=== PATIENT | male | born 1960 | race Caucasian/White ===

== ENCOUNTER 2018-01-30 02:35 | Inpatient (IN) ==
[2018-01-30] MEDS ORDERED: Sod Chloride 0.9% Inj 1,000 ML IV.CONT SCH (02:45)
[2018-01-30] MEDS ORDERED: Alteplase Bolus 9 MG/9 ML Syringe IV.PUSH ONE (02:53)
[2018-01-30] MEDS ORDERED: ALTEPLASE DRIP IV.SIG ONE (02:53)
--- NOTE | 2018-01-30 02:59 | CT ---
EXAM DATE: 01/30/2018 2:47 AM EDT AGE/SEX: 57 years / Male INDICATIONS: Stroke Alert. Flaccid right upper extremity, aphasia. CLINICAL DATA: This is the patient's initial encounter. Patient reports that signs and symptoms have been present for 1 day and indicates a pain score of 0/10. MEDICAL/SURGICAL HISTORY: Non-responsive. Non-responsive. RADIATION DOSE: 60.26 CTDI (mGy) COMPARISON: No prior exams available for comparison. TECHNIQUE: CT of the head without contrast. Using automated exposure control and adjustment of the mA and/or kV according to patient size, radiation dose was kept as low as reasonably achievable to ob tain optimal diagnostic quality images. DICOM format image data is available electronically for revi ew and comparison. FINDINGS: No bleed or parenchymal changes are seen of the brain. There is increased density of the left middle cerebral artery, probably acutely thrombosed. No mass demonstrated. No midline shift. Skull is intact. There is mucoperiosteal thickening of the right maxillary air cell. CONCLUSION: Suspected acute thrombosis of the left middle cerebral artery. Stat CTA is recommended. E mergent transfer to the main hospital should be arranged. No perceptible parenchymal changes at this time. Report called to the emergency room physician Dr. Pinon at 2:52 AM. Report was called by [ ] Electronically signed by: Vasu Navarro MD 01/30/2018 2:58 AM EDT
[2018-01-30 03:10] LABS: Baso % (Auto) 0.4 % (0.0-2.0); Eos # (Auto) 0.2 th/mm3 (0.0-0.4); Eos % (Auto) 3.4 % (0.0-4.0); Hematocrit 40.7 % (39.0-51.0); Lymph # (Auto) 2.4 th/mm3 (1.0-4.8); Mean Corpuscular HGB Conc 34.4 % (32.0-36.0); Mean Corpuscular Hemoglobin 34.3 pg (27.0-34.0); Mean Corpuscular Volume 99.5 fL (80.0-100.0); Mean Platelet Volume 7.7 fL (7.0-11.0); Mono # (Auto) 0.7 th/mm3 (0.0-0.9); Mono % (Auto) 10.9 % (0.0-8.0); Neut # (Auto) 3.4 th/mm3 (1.8-7.7); Neut % (Auto) 49.3 % (16.0-70.0); Platelet Count 278 th/mm3 (150-450); Red Blood Count 4.09 mil/mm3 (4.50-5.90); Red Cell Distribution Width 12.5 % (11.6-17.2); White Blood Count 6.8 th/mm3 (4.0-11.0)
[2018-01-30 03:16] LABS: Chloride 108 meq/L (98-107); Potassium 4.3 meq/L (3.5-5.1); Sodium 140 meq/L (136-145)
[2018-01-30 03:19] LABS: Calcium 8.7 mg/dL (8.5-10.1)
--- NOTE | 2018-01-30 03:19 | ED ---
HPI General Chief Complaint: Stroke Alert Stated Complaint: EVAC/Stroke Allert Time Seen by Provider: 01/30/18 02:35 Source: family and EMS Mode of arrival: EMS Limitations: other (Aphasic) History of Present Illness Onset (ago): minute(s) (20) Last Observed Normal: 02:15 Timing confirmed by: spouse Location: speech, right face, right arm and right leg History of same: No Severity: severe Quality: weak Relieving factors: none Exacerbating factors: none Context: sudden onset On Anticoagulants: No Treatments Prior to Arrival: none Related Data Home Medications Medication Instructions Recorded Confirmed Unable to Obtain Home Meds 01/30/18 01/30/18 Allergies Allergy/AdvReac Type Severity Reaction Status Date / Time No Known Allergies Allergy Unverified 01/30/18 02:36 Review of Systems ROS Unobtainable ROS Unobtainable: unobtainable due to mental status PMFSH History History Provided By: Family Member Medical History Medical History Hypertension (Acute) Surgical History Surgical History History of appendectomy (Acute) Social History Social History Substance History: Unable to Obtain Smoking Status: Current every day smoker Tobacco Type: Cigarettes How Often Do You Have a Drink Containing Alcohol: 4 or more times a week Exam Const General: healthy appearing and acute distress HENMT Head: normal to inspection, normocephalic and atraumatic Eyes Alignment and Position: alignment normal Conjunctivae: conjunctivae normal Sclera: sclerae normal EOM: EOM intact bilaterally Neck Neck: normal visual inspection, no lymphadenopathy and no meningeal signs Chest Chest: normal inspection of the chest Resp Effort & Inspection: normal respiratory effort and able to speak in complete sentences Auscultation: clear to auscultation bilaterally Cardio Rate: regular rate Rhythm: regular rhythm Back/Spine/Pelvis Cervical Spine: cervical ROM normal Thoracic/Lumbar Spine: thoraco-lumbar ROM normal Skin General: no rashes or lesions noted, turgor normal and dry skin Neuro General: awake, confused and unable to assess gait Cranial Nerves: PERRL, EOM intact bilaterally, able to rotate head bilaterally and other (Weakness of the right face) Cognition: abnormal cognition Speech: expressive aphasia Motor: muscle tone abnormal (Right upper and right lower extremities) Extrem General: normal to inspection and full ROM Psych Appearance: grossly normal Mental Status: mental status grossly normal Speech and Movement: speech and movement normal Mood: congruent mood Affect: normal affect Attitude: cooperative Thought Process: normal Thought Content: normal Judgment: judgment good Course Hospital Course: There has been no change in the patient's neurological status in the emergency department Consultations Consultation #1: Dr. Acuna, neurologist Time: 02:48 Consultation #2: Dr. Navarro, radiology Time: 02:50 Consultation #3: Dr. Patel, catcher plug Time: 03:05 Initial Documented Vital Signs Pulse Oximetry 100 01/30/18 02:36 Last Documented Vital Signs Pulse Oximetry 100 01/30/18 02:36 Critical Care Time Critical Care Time: Yes Total Critical Care Time: 60 Attestation: Time to perform other separately billable procedures was not included in the critical care time. My time did not include minutes spent treating any other patients simultaneously or on activities that did not directly contribute to the patient's treatment. The services I provided to this patient were to treat and/or prevent clinically significant deterioration due to stroke alert I provided critical care services requiring my management, as noted below: Chart data review, documentation time, medication orders and management, vital sign assessments/reviewing monitor data, ordering and reviewing lab tests, ordering and interpreting/reviewing x-rays and diagnostic studies, care of the patient and discussion of the patient with the admitting physicians NIH Stroke Scale NIHSS Time Completed NIHSS Time Completed: 02:35 NIH Stroke Scale Level of Consciousness: 1-Drowsy Orientation Questions: 2-Neither task correct Gaze Eye Movement: 0-Horizontal movement WNL Facial Movement: 2-Partial facial palsy Motor Functions Arm LEFT: 0-No drift Motor Functions Arm RIGHT: 3-No effort against gravity Motor Functions Leg LEFT: 0-No drift Motor Functions Leg RIGHT: 3-No effort against gravity Best Language: 3-Mute or global aphasia Articulation: 2-Severe dysarthria Total: 16 Quality Measure Queries Stroke Last date observed well: 01/30/18 Last time observed well: 02:00 Symptom Onset Unknown: No Medical Decision Making MDM Narrative Medical decision making narrative: This patient presented as a stroke alert. His reports that they went to bed shortly after midnight. Approximately 10 -15 minutes before calling EMS, she states that he seemed to be normal. She states that he had taken all the covers which resulted in a brief conversation between the 2 of them. He seemed okay at that time. Then, approximately 10 minutes later, she noticed that he seemed very restless. She noticed that he had altered mental status and had been incontinent of urine. He was trying to get off the bed. She subsequently called 911. EVAC reports right-sided paralysis, aphasia and urinary incontinence. A stroke alert was called based upon these findings. On arrival here, the patient is a phasic. He is a little bit agitated. He has some right-sided facial weakness as well as weakness of the right upper and lower extremities. He was taken emergently for CT of the head which was negative for bleed. TPA was then ordered. The case was discussed with Dr. Acuna. The case was also discussed with the radiologist to recommends interventional radiology because of an acute left MCA embolus. CTA of the head and neck have subsequently been ordered. The patient will be transferred to [facility] for interventional radiology followed by admission to the [facility]. Medical Screen Exam Complete: Yes Emergency Medical Condition: Yes Differential Diagnosis Differential Diagnosis: Differential diagnosis includes but is not limited to TIA, CVA, brain tumor, migraine, anxiety Lab Data Lab results reviewed: Yes I reviewed the patient's lab results. Result diagrams: 01/30/18 03:00 01/30/18 03:00 Lab Results 01/30/18 01/30/18 01/30/18 Range/Units 02:57 03:00 03:00 CBC w Diff Auto diff final WBC 6.8 (4.0-11.0) th/mm3 RBC 4.09 L (4.50-5.90) mil/mm3 Hgb 14.0 (13.0-17.0) gm/dL Hct 40.7 (39.0-51.0) % MCV 99.5 (80.0-100.0) fL MCH 34.3 H (27.0-34.0) pg MCHC 34.4 (32.0-36.0) % RDW 12.5 (11.6-17.2) % Plt Count 278 (150-450) th/mm3 MPV 7.7 (7.0-11.0) fL Neut % (Auto) 49.3 (16.0-70.0) % Lymph % (Auto) 36.0 (9.0-44.0) % [place] % (Auto) 10.9 H (0.0-8.0) % Eos % (Auto) 3.4 (0.0-4.0) % Baso % (Auto) 0.4 (0.0-2.0) % Neut # (Auto) 3.4 (1.8-7.7) th/mm3 Lymph # (Auto) 2.4 (1.0-4.8) th/mm3 [place] # (Auto) 0.7 (0.0-0.9) th/mm3 Eos # (Auto) 0.2 (0.0-0.4) th/mm3 Baso # (Auto) 0.0 (0.0-0.2) th/mm3 WBC Differential . Differential Comment . PT 9.8 (9.8-11.6) sec INR 1.0 Ratio APTT 23.3 L (24.3-30.1) sec Fibrinogen 261 (227-377) mg/dL Sodium (136-145) meq/L Potassium (3.5-5.1) meq/L Chloride (98-107) meq/L Carbon Dioxide (21.0-32.0) meq/L Anion Gap (5-15) meq/L BUN (7-18) mg/dL Creatinine (0.60-1.30) mg/dL Estimated GFR (>89) mL/min POC Glucose 93 (68-110) mg/dl Random Glucose (74-106) mg/dL Calcium (8.5-10.1) mg/dL Total Creatine Kinase (39-308) U/L Troponin I (0.02-0.05) ng/mL Urine Color (Yellw/Straw) Urine Clarity (Clear) Urine pH (5.0-8.5) Ur Specific [place] (1.002-1.035) Urine Protein (Neg-Trace) mg/dL Urine Glucose (UA) (Negative) mg/dL Urine Ketones (Negative) mg/dL Urine Occult Blood (Negative) Urine Nitrate (Negative) Urine Bilirubin (Negative) Urine Urobilinogen (Less than 2) mg/dL Ur Leukocyte Esterase (Negative) Urine RBC (0-3) /hpf Urine WBC (0-5) /hpf Ur Squamous Epith Cells (0-5) /hpf Micro UA Comment Ur Microscopic Review Urine Culture Comments Urine Opiates Screen (Neg) Ur Barbiturates Screen (Neg) Ur Amphetamines Screen (Neg) U Benzodiazepines Scrn (Neg) Urine Cocaine Screen (Neg) U Cannabinoids Screen (Neg) Serum Alcohol (0-5) mg/dL Blood Type Blood Type Recheck Antibody Screen 01/30/18 01/30/18 01/30/18 Range/Units 03:00 03:00 03:00 CBC w Diff WBC (4.0-11.0) th/mm3 RBC (4.50-5.90) mil/mm3 Hgb (13.0-17.0) gm/dL Hct (39.0-51.0) % MCV (80.0-100.0) fL MCH (27.0-34.0) pg MCHC (32.0-36.0) % RDW (11.6-17.2) % Plt Count (150-450) th/mm3 MPV (7.0-11.0) fL Neut % (Auto) (16.0-70.0) % Lymph % (Auto) (9.0-44.0) % [place] % (Auto) (0.0-8.0) % Eos % (Auto) (0.0-4.0) % Baso % (Auto) (0.0-2.0) % Neut # (Auto) (1.8-7.7) th/mm3 Lymph # (Auto) (1.0-4.8) th/mm3 [place] # (Auto) (0.0-0.9) th/mm3 Eos # (Auto) (0.0-0.4) th/mm3 Baso # (Auto) (0.0-0.2) th/mm3 WBC Differential Differential Comment PT (9.8-11.6) sec INR Ratio APTT (24.3-30.1) sec Fibrinogen (227-377) mg/dL Sodium 140 (136-145) meq/L Potassium 4.3 (3.5-5.1) meq/L Chloride 108 H (98-107) meq/L Carbon Dioxide 26.9 (21.0-32.0) meq/L Anion Gap 5 (5-15) meq/L BUN 14 (7-18) mg/dL Creatinine 1.10 (0.60-1.30) mg/dL Estimated GFR 69 L (>89) mL/min POC Glucose (68-110) mg/dl Random Glucose 99 (74-106) mg/dL Calcium 8.7 (8.5-10.1) mg/dL Total Creatine Kinase 142 (39-308) U/L Troponin I Less than 0.02 L (0.02-0.05) ng/mL Urine Color (Yellw/Straw) Urine Clarity (Clear) Urine pH (5.0-8.5) Ur Specific [place] (1.002-1.035) Urine Protein (Neg-Trace) mg/dL Urine Glucose (UA) (Negative) mg/dL Urine Ketones (Negative) mg/dL Urine Occult Blood (Negative) Urine Nitrate (Negative) Urine Bilirubin (Negative) Urine Urobilinogen (Less than 2) mg/dL Ur Leukocyte Esterase (Negative) Urine RBC (0-3) /hpf Urine WBC (0-5) /hpf Ur Squamous Epith Cells (0-5) /hpf Micro UA Comment Ur Microscopic Review Urine Culture Comments Urine Opiates Screen Neg (Neg) Ur Barbiturates Screen Neg (Neg) Ur Amphetamines Screen Neg (Neg) U Benzodiazepines Scrn Neg (Neg) Urine Cocaine Screen Pos H (Neg) U Cannabinoids Screen Pos H (Neg) Serum Alcohol Less than 3 (0-5) mg/dL Blood Type A Positive Blood Type Recheck Required Antibody Screen Negative 01/30/18 Range/Units 03:00 CBC w Diff WBC (4.0-11.0) th/mm3 RBC (4.50-5.90) mil/mm3 Hgb (13.0-17.0) gm/dL Hct (39.0-51.0) % MCV (80.0-100.0) fL MCH (27.0-34.0) pg MCHC (32.0-36.0) % RDW (11.6-17.2) % Plt Count (150-450) th/mm3 MPV (7.0-11.0) fL Neut % (Auto) (16.0-70.0) % Lymph % (Auto) (9.0-44.0) % [place] % (Auto) (0.0-8.0) % Eos % (Auto) (0.0-4.0) % Baso % (Auto) (0.0-2.0) % Neut # (Auto) (1.8-7.7) th/mm3 Lymph # (Auto) (1.0-4.8) th/mm3 [place] # (Auto) (0.0-0.9) th/mm3 Eos # (Auto) (0.0-0.4) th/mm3 Baso # (Auto) (0.0-0.2) th/mm3 WBC Differential Differential Comment PT (9.8-11.6) sec INR Ratio APTT (24.3-30.1) sec Fibrinogen (227-377) mg/dL Sodium (136-145) meq/L Potassium (3.5-5.1) meq/L Chloride (98-107) meq/L Carbon Dioxide (21.0-32.0) meq/L Anion Gap (5-15) meq/L BUN (7-18) mg/dL Creatinine (0.60-1.30) mg/dL Estimated GFR (>89) mL/min POC Glucose (68-110) mg/dl Random Glucose (74-106) mg/dL Calcium (8.5-10.1) mg/dL Total Creatine Kinase (39-308) U/L Troponin I (0.02-0.05) ng/mL Urine Color Yellow (Yellw/Straw) Urine Clarity Clear (Clear) Urine pH 5.5 (5.0-8.5) Ur Specific [place] 1.025 (1.002-1.035) Urine Protein Negative (Neg-Trace) mg/dL Urine Glucose (UA) Negative (Negative) mg/dL Urine Ketones Negative (Negative) mg/dL Urine Occult Blood Negative (Negative) Urine Nitrate Negative (Negative) Urine Bilirubin Negative (Negative) Urine Urobilinogen 0.2 (Less than 2) mg/dL Ur Leukocyte Esterase Negative (Negative) Urine RBC 0-3 (0-3) /hpf Urine WBC 0-5 (0-5) /hpf Ur Squamous Epith Cells 0-5 (0-5) /hpf Micro UA Comment Cath-culture not ind Ur Microscopic Review Microscopic reviewed Urine Culture Comments Cath-cult not ind Urine Opiates Screen (Neg) Ur Barbiturates Screen (Neg) Ur Amphetamines Screen (Neg) U Benzodiazepines Scrn (Neg) Urine Cocaine Screen (Neg) U Cannabinoids Screen (Neg) Serum Alcohol (0-5) mg/dL Blood Type Blood Type Recheck Antibody Screen Imaging Data Radiologist's impression: Chest X-Ray 01/30/18 02:36 CONCLUSION: No evidence of acute cardiopulmonary disease. Head CT 01/30/18 02:36 CONCLUSION: Suspected acute thrombosis of the left middle cerebral artery. Stat CTA is recommended. Emergent transfer to the main hospital should be arranged. No perceptible parenchymal changes at this time. Report called to the emergency room physician Dr. Pinon at 2:52 AM. Report was called by [ ] Head CTA 01/30/18 02:52 CONCLUSION: Thrombosed left internal carotid artery and extending into the left middle cerebral artery. Neck CTA 01/30/18 03:19 CONCLUSION: 1. Acute appearing thrombosis of the left internal carotid artery beginning about 1 cm above the bifurcation and extending intracranially into the left middle cerebral artery. 2. Atherosclerosis of the bilateral carotid bulbs and proximal internal carotid arteries with low-grade and very short segment narrowing. 3. No acute vertebrobasilar abnormality. ECG Data EKG Prior to Arrival: No Attestation: I personally reviewed and interpreted this ECG as follows: (EKG shows a sinus rhythm of 60 and no acute STT wave changes) Discharge Plan Discharge Disposition Patient Disposition: 30 Still Patient Discharge Details Diagnosis: Acute ischemic stroke Physicians Team ED Provider: Kristan Pinon Primary Care Provider: UNKNOWN, Attending Provider: Chalo Patel Other Providers: Shimon Acuna Status ED Status: Admitted Patient
[2018-01-30 03:20] LABS: Anion Gap 5 meq/L (5-15); Blood Urea Nitrogen 14 mg/dL (7-18); Carbon Dioxide 26.9 meq/L (21.0-32.0); Glucose,Random 99 mg/dL (74-106)
[2018-01-30 03:21] LABS: Activated Partial Thrombo Time 23.3 sec (24.3-30.1); Prothrombin Time 9.8 sec (9.8-11.6)
[2018-01-30 03:23] LABS: Glomerular Filtration Rate 69 mL/min (>89)
[2018-01-30 03:26] LABS: Creatine Kinase 142 U/L (39-308)
--- NOTE | 2018-01-30 03:59 | XR ---
EXAM DATE: 01/30/2018 3:53 AM EDT AGE/SEX: 57 years / Male INDICATIONS: Stroke alert. CLINICAL DATA: This is the patient's initial encounter. Patient reports that signs and symptoms have been present for 1 day and indicates a pain score of Nonresponsive. MEDICAL/SURGICAL HISTORY: Non-responsive. Non-responsive. COMPARISON: No prior exams available for comparison. FINDINGS: A single AP view of the chest demonstrates the lungs to be symmetrically aerated without evidence of mass, infiltrate or effusion. The cardiomediastinal contours are unremarkable. Osseous structures a re intact. CONCLUSION: No evidence of acute cardiopulmonary disease. Electronically signed by: Vasu Navarro MD 01/30/2018 3:57 AM EDT
[2018-01-30 04:09] LABS: Bilirubin,Urine Negative (Negative); Clarity,Urine Clear (Clear); Color,Urine Yellow (Yellw/Straw); Glucose,Urine (UA) Negative (Negative); Leukocyte Esterase,Urine Negative (Negative); Nitrite,Urine Negative (Negative); PH,Urine 5.5 (5.0-8.5); Specific Gravity,Urine 1.025 (1.002-1.035); Urobilinogen,Urine 0.2 mg/dL (Less than 2)
[2018-01-30 04:13] LABS: RBC,Urine 0-3 /hpf (0-3); Squamous Epithelial Cell,Urine 0-5 /hpf (0-5); WBC,Urine 0-5 /hpf (0-5)
--- NOTE | 2018-01-30 04:13 | CT ---
EXAM DATE: 01/30/2018 4:02 AM EDT AGE/SEX: 57 years / Male INDICATIONS: Stroke Alert, flaccid right upper extremity, aphasia. CLINICAL DATA: This is the patient's initial encounter. Patient reports that signs and symptoms have been present for 1 day and indicates a pain score of 0/10. MEDICAL/SURGICAL HISTORY: Non-responsive. Non-responsive. RADIATION DOSE: 42.30 CTDI (mGy) ; Combined studies COMPARISON: [facility], CTA NECK W CONTRAST W 3D, 01/30/2018. . TECHNIQUE: Volumetric scanning was performed using a multi-row detector CT scanner during bolus infu zara of 99 ml Visipaque 320 (iodixanol) nonionic water-soluble contrast as a cumulative dose for mul tiple exams. The data was post processed with a variety of visualization algorithms including full volume maximum intensity projection, multi-planar sliding thin slab reformation, curved planar reform ation, and surface rendering techniques. Using automated exposure control and adjustment of the mA a nd/or kV according to patient size, radiation dose was kept as low as reasonably achievable to obtain optimal diagnostic quality images. DICOM format image data is available electronically for review a nd comparison. FINDINGS: There is acute appearing thrombosis of the left middle cerebral artery and the left internal carotid artery beginning just above the bifurcation.. Other intracranial arteries are widely patent. No aneur ysm is demonstrated. CONCLUSION: Thrombosed left internal carotid artery and extending into the left middle cerebral arter y. Electronically signed by: Vasu Navarro MD 01/30/2018 4:12 AM EDT
[2018-01-30 04:19] LABS: Amphetamine Screen,Urine Neg (Neg); Barbiturate Screen,Urine Neg (Neg); Cannabinoid Screen,Urine Pos (Neg); Cocaine Screen,Urine Pos (Neg)
[2018-01-30 04:20] LABS: Opiate Screen,Urine Neg (Neg)
--- NOTE | 2018-01-30 04:30 | CT ---
EXAM DATE: 01/30/2018 4:20 AM EDT AGE/SEX: 57 years / Male INDICATIONS: Stroke Alert, flaccid right upper extremity, aphasia. CLINICAL DATA: This is the patient's initial encounter. Patient reports that signs and symptoms have been present for 1 day and indicates a pain score of 0/10. MEDICAL/SURGICAL HISTORY: Non-responsive. Non-responsive. RADIATION DOSE: 42.30 CTDI (mGy) ; Combined studies COMPARISON: No prior exams available for comparison. TECHNIQUE: Volumetric scanning was performed using a multirow detector CT scanner during bolus infus ion of 99 ml Visipaque 320 (iodixanol) nonionic water-soluble contrast as a cumulative dose for mult iple exams. The data was postprocessed with a variety of visualization algorithms including full-vo lume maximum intensity projection, multiplanar sliding thin-slab reformation, curved-planar reformati on, and surface-rendering techniques. Using automated exposure control and adjustment of the mA and/ or kV according to patient size, radiation dose was kept as low as reasonably achievable to obtain op timal diagnostic quality images. DICOM format image data is available electronically for review and comparison. Percent stenosis is calculated using the diameter of the stenotic region over the diameter of the nor mal distal internal carotid artery. FINDINGS: Approximately 1 cm above the bifurcation is complete occlusion of the left internal carotid artery an d appears to be on the basis of acute thrombosis. The thrombus extends intracranially into the left m iddle cerebral artery. There is normal filling of the right middle and bilateral anterior cerebral ar teries. The posterior circulation is within normal limits. Mild atherosclerosis seen of the bilateral carotid bulbs and proximal internal carotid arteries. Ther e is a roughly 30% short segment chronic appearing stenosis of the proximal right internal carotid ar iraj. There is a well less than 30% short segment stenosis of the proximal left internal carotid patricio ry. CONCLUSION: 1. Acute appearing thrombosis of the left internal carotid artery beginning about 1 cm above the bif urcation and extending intracranially into the left middle cerebral artery. 2. Atherosclerosis of the bilateral carotid bulbs and proximal internal carotid arteries with low-gr evan and very short segment narrowing. 3. No acute vertebrobasilar abnormality. Electronically signed by: Vasu Navarro MD 01/30/2018 4:28 AM EDT
[2018-01-30] MEDS ORDERED: Bisacodyl 10 MG Supp RECTAL PRN (04:33)
[2018-01-30] MEDS ORDERED: Acetaminophen 325 MG Tablet PO PRN (04:33)
[2018-01-30] MEDS ORDERED: niCARdipine Inj 25 MG in Sodium Chlor 0.9% Inj 240 ML IV.CONT PRN (04:36)
[2018-01-30] MEDS ORDERED: Dextrose 50% in Water 50 ML Vial IV.PUSH PRN (04:36)
[2018-01-30] MEDS ORDERED: Labetalol HCl Inj 100 MG/20 ML Vial IV.PUSH PRN (04:36)
--- NOTE | 2018-01-30 05:55 | P.HPCC ---
History of Present Illness Primary Care Physician: UNKNOWN History of Present Illness: 57-year-old unfortunate gentleman presents [facility] emergency department as a stroke alert. His reports that they went to bed shortly after midnight. Approximately 10-15 minutes before calling EMS, she states that he seemed to be normal. She states that he had taken all the covers which resulted in a brief conversation between the 2 of them. He seemed okay at that time. Then, approximately 10 minutes later, she noticed that he seemed very restless. She noticed that he had altered mental status and had been incontinent of urine. He was trying to get off the bed and she called 911. EVAC reports right-sided paralysis, aphasia and urinary incontinence. On arrival to [facility] emergency department the patient was aphasic. He is a little bit agitated. He has some right-sided facial weakness as well as weakness of the right upper and lower extremities. He was taken emergently for CT of the head which was negative for bleed. TPA infusion was then initiated. The case was discussed with Dr. Acuna. The CTA of the head and neck showed thrombosed left internal carotid artery and extending into the left middle cerebral artery. The patient was emergently taken to IR suite for possible intervention. Inpatient Certification: I certify that the inpatient services were ordered in accordance with Medicare regulations governing the order. This includes certification that hospital inpatient services are reasonable and necessary and in the case of services not specified as inpatient-only under 42 CFR 419.22(n), that they are appropriately provided as inpatient services in accordance to with the 2-midnight benchmark under 43 CFR 412.3(e) Estimated Total Length of Stay (Days): 5 Plans for Post Hospital Care: Not yet determined Review of Systems unobtainable due to mental condition PMFSH - History History Provided By: Family Member - Medical History Medical History: Medical History (Last Reviewed 01/30/18 @ 05:03 by Breann Arrieta RN) Hypertension - Surgical History Surgical History: Surgical History (Last Reviewed 01/30/18 @ 05:03 by Breann Arrieta RN) History of appendectomy - Tobacco History Tobacco Use In Past 30 Days: Yes Smoking Status: Current every day smoker Tobacco Type: Cigarettes - Alcohol History How Often Do You Have a Drink Containing Alcohol: 4 or more times a week - Substance Use History Substance History: Unable to Obtain - Substance Use Type Crack/Cocaine Status: Active Route Used: Inhalation Reason for Use: Get High Comment: states patient snorts cocaine, unknown last time used - Travel History Recent Travel in the [place] Within the Last 8 Weeks: No Recent Travel Out of the Country Within the Last 8 Weeks: No - Immunization History Tetanus Immunization: Unsure Hx Influenza Vaccine This Season: Unable to Assess Medications and Allergies Active Medications: Active Medications Acetaminophen (Tylenol) 650 mg PO Q6H PRN PRN Reason: PAIN 1-10 AND/OR FEVER >101F Al Hydroxide/Mg Hydroxide (Milk Of Chantelle Lirobert) 30 ml PO Q12H PRN PRN Reason: Mild Constipation Albuterol (Duoneb Neb (Prn)) 1 ampul NEB Q2HR NEB PRN PRN Reason: WHEEZING Bisacodyl (Dulcolax Supp) 10 mg RECTAL DAILY PRN PRN Reason: SEVERE CONSITIPATION Chlorhexidine Gluconate (Chlorhexidine 2% Cloth) 3 pack TOPICAL DAILY@0400 JUAN Stop: 02/05/18 03:59 Chlorhexidine Gluconate (Chlorhexidine 2% Cloth) 3 pack TOPICAL DAILY@0400 PRN PRN Reason: Extra cloth needed Stop: 02/05/18 03:59 Dextrose (D50w Vial) 50 ml IV.PUSH UNSCH PRN PRN Reason: PER HYPOGLYCEMIA PROTOCOL Enalaprilat (Vasotec Inj) 1.25 mg IV.PUSH Q4H PRN PRN Reason: For SBP > 220 or DBP > 120 Famotidine (Pepcid Pf Inj) 20 mg IV.PUSH Q12HR JUAN Glucagon (Glucagon Inj) 1 mg OTHER UNSCH PRN PRN Reason: for Hypoglycemia Protocol Heparin Sodium (Porcine) (Heparin Inj) 5,000 units SQ Q8H [facility] Sodium Chloride (Ns Inj) 1,000 mls @ 70 mls/hr IV.CONT .[id number] [facility] Last Admin: 01/30/18 04:10 Dose: 70 mls/hr Sodium Chloride (Ns Inj) 1,000 mls @ 84 mls/hr IV.CONT .[id number] [facility] Nicardipine HCl 25 mg/ Sodium (Chloride) 250 mls @ 50 mls/hr IV.CONT TITRATE PRN; Protocol PRN Reason: Per Protocol Insulin Aspart (Novolog Insulin Correctional Sugar Inj) 0 unit SQ ACHS JUAN; Protocol Labetalol HCl (Trandate Inj) 10 mg IV.PUSH Q2H PRN PRN Reason: For SBP > 220 or DBP > 120 Lactulose (Lactulose Liq) 30 ml PO DAILY PRN PRN Reason: SEVERE CONSITIPATION Ondansetron HCl (Zofran Inj) 4 mg IV.PUSH Q6H PRN PRN Reason: NAUSEA OR VOMITING Pravastatin Sodium (Pravachol) 40 mg PO HS JUAN Senna/Docusate Sodium (Malou-Colace) 1 tab PO BID JUAN Sennosides (Senokot) 17.2 mg PO Q12H PRN PRN Reason: Moderate Constipation Sodium Chloride (Ns Flush) 2 ml IV.FLUSH BID JUAN Sodium Chloride (Ns Flush) 2 ml IV.FLUSH PRN PRN PRN Reason: FLUSH AFTER USING IV ACCESS Allergies Allergy/AdvReac Type Severity Reaction Status Date / Time No Known Allergies Allergy Unverified 01/30/18 02:36 Home Medications Medication Instructions Recorded Confirmed Type Unable to Obtain Home Meds 01/30/18 01/30/18 History Results - Labs CBC & Chem 7: 01/30/18 03:00 01/30/18 03:00 Labs: Short CBC 01/30/18 Range/Units 03:00 WBC 6.8 (4.0-11.0) th/mm3 Hgb 14.0 (13.0-17.0) gm/dL Hct 40.7 (39.0-51.0) % Plt Count 278 (150-450) th/mm3 BMP 01/30/18 03:00 Sodium 140 Potassium 4.3 Chloride 108 H Carbon Dioxide 26.9 BUN 14 Creatinine 1.10 Calcium 8.7 Cardiac Enzymes 01/30/18 Range/Units 03:00 Total Creatine Kinase 142 (39-308) U/L Troponin I Less than 0.02 L (0.02-0.05) ng/mL Urine 01/30/18 Range/Units 03:00 Urine Color Yellow (Yellw/Straw) Urine Clarity Clear (Clear) Urine pH 5.5 (5.0-8.5) Ur Specific Wilson 1.025 (1.002-1.035) Urine Protein Negative (Neg-Trace) mg/dL Urine Glucose (UA) Negative (Negative) mg/dL - Imaging Impressions Chest X-Ray 01/30/18 02:36 CONCLUSION: No evidence of acute cardiopulmonary disease. Head CT 01/30/18 02:36 CONCLUSION: Suspected acute thrombosis of the left middle cerebral artery. Stat CTA is recommended. Emergent transfer to the main hospital should be arranged. No perceptible parenchymal changes at this time. Report called to the emergency room physician Dr. Pinon at 2:52 AM. Report was called by [ ] Head CTA 01/30/18 02:52 CONCLUSION: Thrombosed left internal carotid artery and extending into the left middle cerebral artery. Neck CTA 01/30/18 03:19 CONCLUSION: 1. Acute appearing thrombosis of the left internal carotid artery beginning about 1 cm above the bifurcation and extending intracranially into the left middle cerebral artery. 2. Atherosclerosis of the bilateral carotid bulbs and proximal internal carotid arteries with low-grade and very short segment narrowing. 3. No acute vertebrobasilar abnormality. Exam Vital signs: Vital Signs 01/30/18 02:36 01/30/18 02:40 01/30/18 02:54 Temperature 98.3 F Pulse Rate 78 Respiratory Rate 16 Blood Pressure 168/85 H Pulse Oximetry 100 100 01/30/18 03:05 01/30/18 03:20 01/30/18 03:35 Temperature Pulse Rate 75 74 70 Respiratory Rate 16 16 Blood Pressure 168/82 H 180/80 H 172/84 H Pulse Oximetry 100 100 100 01/30/18 03:50 01/30/18 04:05 01/30/18 04:20 Temperature Pulse Rate 73 52 L 55 L Respiratory Rate 16 14 14 Blood Pressure 163/75 H 189/104 H 152/80 H Pulse Oximetry 100 97 98 01/30/18 04:35 01/30/18 04:50 Temperature Pulse Rate 65 67 Respiratory Rate 15 16 Blood Pressure 183/97 H 178/84 H Pulse Oximetry 99 Intake & Output 01/29/18 01/29/18 01/30/18 06:59 18:59 06:59 Intake Total 63 / 63 Balance 63 / 63 Weight 77.5 kg Intake: IV 63 / 63 Activase Drip 63 MG In Bag/ 63 / 63 Syringe 1 EACH @ 63 mls/hr IV. SIG ONCE ONE Rx#:[id number] - Constitutional moderate distress - Routine HEENT Exam Head: Present: normocephalic, atraumatic Eye: Present: PERRL, normal accommodation ENT: Present: mucous membranes moist - Routine Neck Exam Present: supple, full ROM. Absent: JVD, carotid bruit - Routine Respiratory Exam Absent: accessory muscle use, rhonchi, stridor, wheezes - Routine Cardiovascular Exam Present: RRR, S1, S2. Absent: murmur, gallop, rubs - Routine Abdominal Exam Present: soft, normoactive bowel sounds. Absent: tenderness, distended - Routine Extremities Exam Absent: cyanosis, clubbing, edema - Routine Skin Exam Present: intact. Absent: cyanosis, erythema - Routine Neurological Exam The patient is aphasic, does not follow commands, makes incomprehensive sounds spontaneously, moves all 4 extremities spontaneously with some weakness on the right Caprini VTE Risk Assessment Caprini VTE Risk Assessment: Moderate/High Risk (score >= 2) Caprini Risk Assessment Model: Point Value = 1 Point Value = 2 Point Value = 3 Point Value = 5 Age 41-60 Minor surgery BMI > 25 kg/m2 Swollen legs Varicose veins or History of unexplained or recurrent spontaneous Oral contraceptives or hormone replacement Sepsis (< 1 month) Serious lung disease, including pneumonia (< 1 month) Abnormal pulmonary function Acute myocardial infarction Congestive heart failure (< 1 month) History of inflammatory bowel disease Medical patient at bed rest Age 61-74 Arthroscopic surgery Major open surgery (> 45 min) Laparoscopic surgery (> 45 min) Malignancy Confined to bed (> 72 hours) Immobilizing plaster cast Central venous access Age >= 75 History of VTE Family history of VTE Factor V Leiden Prothrombin [id number] Lupus anticoagulant Anticardiolipin antibodies Elevated serum homocysteine Heparin-induced thrombocytopenia Other congenital or acquired thrombophilia Stroke (< 1 month) Elective arthroplasty Hip, pelvis, or leg fracture Acute spinal cord injury (< 1 month) Prophylaxis Regimen: Total Risk Factor Score Risk Level Prophylaxis Regimen 0-1 Low Early ambulation 2 Moderate Order ONE of the following: *Sequential Compression Device (SCD) *Heparin 5000 units SQ BID 3-4 Higher Order ONE of the following medications: *Heparin 5000 units SQ TID *Enoxaparin/Lovenox 40 mg SQ daily (WT < 150 kg, CrCl > 30 mL/min) *Enoxaparin/Lovenox 30 mg SQ daily (WT < 150 kg, CrCl > 10-29 mL/min) *Enoxaparin/Lovenox 30 mg SQ BID (WT < 150 kg, CrCl > 30 mL/min) AND/OR *Sequential Compression Device (SCD) 5 or more Highest Order ONE of the following medications: *Heparin 5000 units SQ TID (Preferred with Epidurals) *Enoxaparin/Lovenox 40 mg SQ daily (WT < 150 kg, CrCl > 30 mL/min) *Enoxaparin/Lovenox 30 mg SQ daily (WT < 150 kg, CrCl > 10-29 mL/min) *Enoxaparin/Lovenox 30 mg SQ BID (WT < 150 kg, CrCl > 30 mL/min) AND *Sequential Compression Device (SCD) Assessment and Plan - Assessment and Plan Plan: Acute MCA CVA -Carotid dissection? Thrombosis -Status post TPA administration -IR consultation for possible intervention -BP control -Neuro checks per unit protocol -PT and OT as tolerated -Monitor in the ICU for possible intubation and brain edema -Further management workup per neurology Hypertension -Nicardipine drip with SBP goal less than 180 -Vasotec, labetalol as needed Dyslipidemia -Atorvastatin DVT GI prophylaxis -Teds SCDs -Heparin subcu 24 hours post TPA -Pepcid 35 minutes of critical care
[2018-01-30] MEDS: Sod Chloride 0.9% Inj 1,000 ML IV.CONT SCH ×2 (06:03→18:00)
[2018-01-30] MEDS ORDERED: Phenylephrine/NS 1000 MCG/10ML Syringe IV.PUSH ONE (06:30)
[2018-01-30] MEDS ORDERED: Glycopyrrolate Inj 1 MG/5 ML Syringe IV.PUSH ONE (06:30)
[2018-01-30] MEDS ORDERED: Succinylcholine Inj 100 MG/5 ML Syringe IV.PUSH ONE (06:30)
[2018-01-30] MEDS ORDERED: Neostigmine Inj 5 MG/5 ML Syringe IV.PUSH ONE (06:30)
[2018-01-30] MEDS ORDERED: fentaNYL Citrate Inj 100 MCG/2 ML Ampul ONE ×2 (06:38→08:58)
[2018-01-30] MEDS ORDERED: *Heparin 10,000 UNITS/10 ML Vial Periprocedural ONLY ONE ×2 (07:10→07:11)
[2018-01-30] MEDS ORDERED: Sodium Chlor 0.9% Inj 250 ML ONE (07:38)
[2018-01-30] MEDS ORDERED: Heparin Drip 25,000 UNIT/250 ML BAG IV.CONT ONE (08:17)
--- NOTE | 2018-01-30 08:30 | P.CONNEU ---
History of Present Illness Service: Neurology Primary Care Provider: UNKNOWN Family Provider: UNKNOWN Chief Complaint: Stroke alert History of Present Illness: 57-year-old male presented for stroke alert acute onset of speech changes right- sided weakness. He lives in [place] is visiting the area with his . IV TPA discussed with patient and spouse by ER physician and with myself and agree with treatment understand the risk of 6% bleed systemic bleed. He has CTA brain carotids performed which demonstrated left carotid thrombosis possible dissection. Discussed the case interventional radiology. An cerebral angiogram performed and had stent placement. He is intubated and was extubated. Still mildly drowsy not following. Sister at bedside. She states he smokes 1-2 packs cigarettes a day. States his been noncompliant with his medications. No previous history of TIA or stroke. Review of Systems unobtainable due to mental status PMFSH - History History Provided By: Family Member - Medical History Medical History: Medical History (Last Reviewed 01/30/18 @ 08:09 by Vivi Hays, FREDI) Hypertension - Surgical History Surgical History: Surgical History (Last Reviewed 01/30/18 @ 05:03 by Breann Arrieta RN) History of appendectomy - Tobacco History Tobacco Use In Past 30 Days: Yes Smoking Status: Current every day smoker Tobacco Type: Cigarettes - Alcohol History How Often Do You Have a Drink Containing Alcohol: 4 or more times a week - Substance Use History Substance History: Unable to Obtain - Substance Use Type Crack/Cocaine Status: Active Route Used: Inhalation Reason for Use: Get High Comment: states patient snorts cocaine, unknown last time used - Travel History Recent Travel in the [facility] Within the Last 8 Weeks: No Recent Travel Out of the Country Within the Last 8 Weeks: No - Immunization History Tetanus Immunization: Unsure Hx Influenza Vaccine This Season: Unable to Assess Medications and Allergies Active Medications: Active Medications Acetaminophen (Tylenol) 650 mg PO Q6H PRN PRN Reason: PAIN 1-10 AND/OR FEVER >101F Al Hydroxide/Mg Hydroxide (Milk Of Magnesia Liq) 30 ml PO Q12H PRN PRN Reason: Mild Constipation Albuterol (Duoneb Neb (Prn)) 1 ampul NEB Q2HR NEB PRN PRN Reason: WHEEZING Bisacodyl (Dulcolax Supp) 10 mg RECTAL DAILY PRN PRN Reason: SEVERE CONSITIPATION Chlorhexidine Gluconate (Chlorhexidine 2% Cloth) 3 pack TOPICAL DAILY@0400 JUAN Stop: 02/05/18 03:59 Chlorhexidine Gluconate (Chlorhexidine 2% Cloth) 3 pack TOPICAL DAILY@0400 PRN PRN Reason: Extra cloth needed Stop: 02/05/18 03:59 Dextrose (D50w Vial) 50 ml IV.PUSH UNSCH PRN PRN Reason: PER HYPOGLYCEMIA PROTOCOL Enalaprilat (Vasotec Inj) 1.25 mg IV.PUSH Q4H PRN PRN Reason: For SBP > 220 or DBP > 120 Famotidine (Pepcid Pf Inj) 20 mg IV.PUSH Q12HR JUAN Glucagon (Glucagon Inj) 1 mg OTHER UNSCH PRN PRN Reason: for Hypoglycemia Protocol Heparin Sodium (Porcine) (Heparin Inj) 5,000 units SQ Q8H [facility] Sodium Chloride (Ns Inj) 1,000 mls @ 70 mls/hr IV.CONT .[id number] [facility] Last Admin: 01/30/18 04:10 Dose: 70 mls/hr Sodium Chloride (Ns Inj) 1,000 mls @ 84 mls/hr IV.CONT .[id number] [facility] Last Admin: 01/30/18 06:03 Dose: 84 mls/hr Nicardipine HCl 25 mg/ Sodium (Chloride) 250 mls @ 50 mls/hr IV.CONT TITRATE PRN; Protocol PRN Reason: Per Protocol Insulin Aspart (Novolog Insulin Correctional Sugar Inj) 0 unit SQ ACHS [facility]; Protocol Labetalol HCl (Trandate Inj) 10 mg IV.PUSH Q2H PRN PRN Reason: For SBP > 220 or DBP > 120 Lactulose (Lactulose Liq) 30 ml PO DAILY PRN PRN Reason: SEVERE CONSITIPATION Ondansetron HCl (Zofran Inj) 4 mg IV.PUSH Q6H PRN PRN Reason: NAUSEA OR VOMITING Pravastatin Sodium (Pravachol) 40 mg PO HS [facility] Senna/Docusate Sodium (Malou-Colace) 1 tab PO BID [facility] Sennosides (Senokot) 17.2 mg PO Q12H PRN PRN Reason: Moderate Constipation Sodium Chloride (Ns Flush) 2 ml IV.FLUSH BID [facility] Sodium Chloride (Ns Flush) 2 ml IV.FLUSH PRN PRN PRN Reason: FLUSH AFTER USING IV ACCESS Allergies Allergy/AdvReac Type Severity Reaction Status Date / Time No Known Allergies Allergy Unverified 01/30/18 02:36 Home Medications Medication Instructions Recorded Confirmed Type Unable to Obtain Home Meds 01/30/18 01/30/18 History Exam Vital signs: Vital Signs 01/30/18 02:36 01/30/18 02:40 01/30/18 02:54 Temperature 98.3 F Pulse Rate 78 Respiratory Rate 16 Blood Pressure 168/85 H Pulse Oximetry 100 100 01/30/18 03:05 01/30/18 03:20 01/30/18 03:35 Temperature Pulse Rate 75 74 70 Respiratory Rate 16 16 Blood Pressure 168/82 H 180/80 H 172/84 H Pulse Oximetry 100 100 100 01/30/18 03:50 01/30/18 04:05 01/30/18 04:20 Temperature Pulse Rate 73 52 L 55 L Respiratory Rate 16 14 14 Blood Pressure 163/75 H 189/104 H 152/80 H Pulse Oximetry 100 97 98 01/30/18 04:35 01/30/18 04:50 01/30/18 05:15 Temperature Pulse Rate 65 67 68 Respiratory Rate 15 16 24 Blood Pressure 183/97 H 178/84 H 189/91 H Pulse Oximetry 99 100 01/30/18 05:35 01/30/18 06:00 01/30/18 06:05 Temperature 97.6 F Pulse Rate 65 60 60 Respiratory Rate 18 17 17 Blood Pressure 157/85 H 159/96 H 159/96 H Pulse Oximetry 98 99 99 Intake & Output 01/29/18 01/30/18 01/30/18 18:59 06:59 18:59 Intake Total 63 / 63 Output Total 150 / 150 Balance -87 / -87 Weight 79.3 kg Intake: IV 63 / 63 Activase Drip 63 MG In Bag/ 63 / 63 Syringe 1 EACH @ 63 mls/hr IV. SIG ONCE ONE Rx#:[id number] Output: Urine Amount (Catheter) 150 / 150 Indwelling Urethral Catheter 150 / 150 Narrative: GENERAL: in NAD, SKIN: Warm and dry. HEAD: Atraumatic. Normocephalic. EYES: Pupils equal and round. No scleral icterus. ENT: No nasal bleeding or discharge. Mucous membranes pink and moist. NECK: Trachea midline. No JVD. CARDIOVASCULAR: Regular rate and rhythm. RESPIRATORY: No accessory muscle use. GASTROINTESTINAL: Abdomen soft, non-tender, nondistended. MUSCULOSKELETAL: Extremities without clubbing, cyanosis, or edema. No obvious deformities. NEUROLOGICAL: Drowsy but arousable, global aphasia, right lower facial weakness , right hemiplegia withdraws localized to the left side PSYCHIATRIC: Calm - Constitutional no acute distress - Routine HEENT Exam Head: Present: normocephalic Results - Labs CBC & Chem 7: 01/30/18 03:00 01/30/18 03:00 Labs: Laboratory Results - last 24 hr 01/30/18 01/30/18 01/30/18 02:57 03:00 03:00 CBC w Diff Auto diff final WBC 6.8 RBC 4.09 L Hgb 14.0 Hct 40.7 MCV 99.5 MCH 34.3 H MCHC 34.4 RDW 12.5 Plt Count 278 MPV 7.7 Neut % (Auto) 49.3 Lymph % (Auto) 36.0 Jess[place] % (Auto) 10.9 H Eos % (Auto) 3.4 Baso % (Auto) 0.4 Neut # (Auto) 3.4 Lymph # (Auto) 2.4 Jessamine # (Auto) 0.7 Eos # (Auto) 0.2 Baso # (Auto) 0.0 WBC Differential . Differential Comment . PT 9.8 INR 1.0 APTT 23.3 L Fibrinogen 261 Sodium Potassium Chloride Carbon Dioxide Anion Gap BUN Creatinine Estimated GFR POC Glucose 93 Random Glucose Calcium Total Creatine Kinase Troponin I Urine Color Urine Clarity Urine pH Ur Specific [place] Urine Protein Urine Glucose (UA) Urine Ketones Urine Occult Blood Urine Nitrate Urine Bilirubin Urine Urobilinogen Ur Leukocyte Esterase Urine RBC Urine WBC Ur Squamous Epith Cells Micro UA Comment Ur Microscopic Review Urine Culture Comments Nasal Screen MRSA (PCR) Urine Opiates Screen Ur Barbiturates Screen Ur Amphetamines Screen U Benzodiazepines Scrn Urine Cocaine Screen U Cannabinoids Screen Serum Alcohol Blood Type Blood Type Recheck Antibody Screen 01/30/18 01/30/18 01/30/18 03:00 03:00 03:00 CBC w Diff WBC RBC Hgb Hct MCV MCH MCHC RDW Plt Count MPV Neut % (Auto) Lymph % (Auto) Jess[place] % (Auto) Eos % (Auto) Baso % (Auto) Neut # (Auto) Lymph # (Auto) [place] # (Auto) Eos # (Auto) Baso # (Auto) WBC Differential Differential Comment PT INR APTT Fibrinogen Sodium 140 Potassium 4.3 Chloride 108 H Carbon Dioxide 26.9 Anion Gap 5 BUN 14 Creatinine 1.10 Estimated GFR 69 L POC Glucose Random Glucose 99 Calcium 8.7 Total Creatine Kinase 142 Troponin I Less than 0.02 L Urine Color Urine Clarity Urine pH Ur Specific [place] Urine Protein Urine Glucose (UA) Urine Ketones Urine Occult Blood Urine Nitrate Urine Bilirubin Urine Urobilinogen Ur Leukocyte Esterase Urine RBC Urine WBC Ur Squamous Epith Cells Micro UA Comment Ur Microscopic Review Urine Culture Comments Nasal Screen MRSA (PCR) Urine Opiates Screen Neg Ur Barbiturates Screen Neg Ur Amphetamines Screen Neg U Benzodiazepines Scrn Neg Urine Cocaine Screen Pos H U Cannabinoids Screen Pos H Serum Alcohol Less than 3 Blood Type A Positive Blood Type Recheck Required Antibody Screen Negative 01/30/18 01/30/18 03:00 05:30 CBC w Diff WBC RBC Hgb Hct MCV MCH MCHC RDW Plt Count MPV Neut % (Auto) Lymph % (Auto) Jess[place] % (Auto) Eos % (Auto) Baso % (Auto) Neut # (Auto) Lymph # (Auto) [place] # (Auto) Eos # (Auto) Baso # (Auto) WBC Differential Differential Comment PT INR APTT Fibrinogen Sodium Potassium Chloride Carbon Dioxide Anion Gap BUN Creatinine Estimated GFR POC Glucose Random Glucose Calcium Total Creatine Kinase Troponin I Urine Color Yellow Urine Clarity Clear Urine pH 5.5 Ur Specific [place] 1.025 Urine Protein Negative Urine Glucose (UA) Negative Urine Ketones Negative Urine Occult Blood Negative Urine Nitrate Negative Urine Bilirubin Negative Urine Urobilinogen 0.2 Ur Leukocyte Esterase Negative Urine RBC 0-3 Urine WBC 0-5 Ur Squamous Epith Cells 0-5 Micro UA Comment Cath-culture not ind Ur Microscopic Review Microscopic reviewed Urine Culture Comments Cath-cult not ind Nasal Screen MRSA (PCR) Not detected Urine Opiates Screen Ur Barbiturates Screen Ur Amphetamines Screen U Benzodiazepines Scrn Urine Cocaine Screen U Cannabinoids Screen Serum Alcohol Blood Type Blood Type Recheck Antibody Screen - Imaging Impressions Chest X-Ray 01/30/18 02:36 CONCLUSION: No evidence of acute cardiopulmonary disease. Head CT 01/30/18 02:36 CONCLUSION: Suspected acute thrombosis of the left middle cerebral artery. Stat CTA is recommended. Emergent transfer to the main hospital should be arranged. No perceptible parenchymal changes at this time. Report called to the emergency room physician Dr. Pinon at 2:52 AM. Report was called by [ ] Head CTA 01/30/18 02:52 CONCLUSION: Thrombosed left internal carotid artery and extending into the left middle cerebral artery. Neck CTA 01/30/18 03:19 CONCLUSION: 1. Acute appearing thrombosis of the left internal carotid artery beginning about 1 cm above the bifurcation and extending intracranially into the left middle cerebral artery. 2. Atherosclerosis of the bilateral carotid bulbs and proximal internal carotid arteries with low-grade and very short segment narrowing. 3. No acute vertebrobasilar abnormality. Review/Management - Diagnosis (1) Acute ischemic left middle cerebral artery (MCA) stroke Code(s): I63.512 - Cerebral infarction due to unspecified occlusion or stenosis of left middle cerebral artery Status: Acute Current Visit: Yes (2) Left carotid stenosis Code(s): I65.22 - Occlusion and stenosis of left carotid artery Status: Acute Current Visit: Yes (3) Hypertension Code(s): I10 - Essential (primary) hypertension Status: Acute Current Visit : Yes (4) Tobacco use Code(s): Z72.0 - Tobacco use Status: Acute Current Visit: Yes - Review/Management Plan: Left high-grade stenosis/dissection status post IV TPA, status post stent placement Risk factors include chronic tobacco use and hypertension Recommendations Post TPA protocol No blood thinners at least 24 hours status post TPA; if no bleed on repeat CT brain in 24 hours will start Plavix as he had a recent stent placement is also recommended by interventional radiology Blood pressure less than 180/100 SCDs MRI, MRA brain Echo Lipid, TSH, B12, HbA1c Tobacco cessation Therapy Telemetry Discussed with patient, sister RN
--- NOTE | 2018-01-30 08:59 | P.RAD ---
Post Procedure Progress Note - Pre Procedure Diagnosis (1) Acute ischemic stroke - Post Procedure Diagnosis (1) Acute ischemic stroke - Procedure Information Procedure Date: 01/30/18 Supervising Radiologist: Rai Rodríguez MD Estimated blood loss (mL): 10 Anesthesia: General - Plan of Activity Patient to Unit: PACU Patient Condition: Fair See PACS Report for procedural detail/treatment. Vascular - Arterial Procedure left Cerebral Procedure: Angiogram, Embolectomy left Cervical Procedure: Angiogram, Stent Placement (ICA) - Additional Information Findings: High grade stenosis proximal left ICA. Good response to IV TPA but still large clot burden in left MCA. Stented carotid with distal protection. Two passes in MCA with worship of flow.
[2018-01-30] MEDS ORDERED: Famotidine PF Inj 20 MG/2 ML Vial IV.PUSH SCH (09:00)
[2018-01-30] MEDS ORDERED: Heparin Drip 25,000 UNIT/250 ML BAG IV.CONT PRN (10:00)
[2018-01-30 10:14] LABS: Activated Partial Thrombo Time 73.9 sec (24.3-30.1); INR 1.1 Ratio; Prothrombin Time 11.5 sec (9.8-11.6)
--- NOTE | 2018-01-30 11:29 | ECG ---
Date Performed: 01/30/2018 Time Performed: 02:53:25 PTAGE: 57 years EKG: Sinus rhythm NORMAL ECG NO PREVIOUS TRACING DOCTOR: Bin Meng Interpretating Date/Time 01/30/2018 11:28:00
[2018-01-30] MEDS ORDERED: Dexmedetomidine Inj 200 MCG in Sodium Chlor 0.9% Inj 48 ML IV.CONT PRN (13:39)
--- NOTE | 2018-01-30 14:04 | P.PNCC ---
Subjective Subjective Remarks/Hospital Course: 57-year-old unfortunate gentleman presents [place] emergency department as a stroke alert. His reports that they went to bed shortly after midnight. Approximately 10-15 minutes before calling EMS, she states that he seemed to be normal. She states that he had taken all the covers which resulted in a brief conversation between the 2 of them. He seemed okay at that time. Then, approximately 10 minutes later, she noticed that he seemed very restless. She noticed that he had altered mental status and had been incontinent of urine. He was trying to get off the bed and she called 911. EVAC reports right-sided paralysis, aphasia and urinary incontinence. On arrival to [place] emergency department the patient was aphasic. He is a little bit agitated. He has some right-sided facial weakness as well as weakness of the right upper and lower extremities. He was taken emergently for CT of the head which was negative for bleed. TPA infusion was then initiated. The case was discussed with Dr. Acuna. The CTA of the head and neck showed thrombosed left internal carotid artery and extending into the left middle cerebral artery. The patient was emergently taken to IR suite for possible intervention. 01/30 1330 hours: Left internal carotid artery stent placed with embolic filter. Fresh thrombus retrieved from the MCA distribution. Patient brought back to the [facility] on heparin drip where I met him on his arrival. Discussed with bedside nurse the need to clarify heparin order. It does not appear that a dissection was present here, rather thrombotic occlusion of a pre-existing atherosclerotic plaque. Nicardipine infusion for blood pressure control. Patient is restless and may well require Precedex for control during MRI later today. Complicating features include the presence of cocaine in the toxicology screen. By family admission the patient is a chronic alcoholic. We will need to deal with withdrawal symptomatology as well. Risk of gastrointestinal hemorrhage increased, will convert to twice daily Protonix. Follow airway closely. Frequent neurologic assessment required. Objective Vital Signs / I&O: Vital Signs 01/30/18 02:36 01/30/18 02:40 01/30/18 02:54 Temperature 98.3 F Pulse Rate 78 Respiratory Rate 16 Blood Pressure 168/85 H Pulse Oximetry 100 100 01/30/18 03:05 01/30/18 03:20 01/30/18 03:35 Temperature Pulse Rate 75 74 70 Respiratory Rate 16 16 Blood Pressure 168/82 H 180/80 H 172/84 H Pulse Oximetry 100 100 100 01/30/18 03:50 01/30/18 04:05 01/30/18 04:20 Temperature Pulse Rate 73 52 L 55 L Respiratory Rate 16 14 14 Blood Pressure 163/75 H 189/104 H 152/80 H Pulse Oximetry 100 97 98 01/30/18 04:35 01/30/18 04:50 01/30/18 05:15 Temperature Pulse Rate 65 67 68 Respiratory Rate 15 16 24 Blood Pressure 183/97 H 178/84 H 189/91 H Pulse Oximetry 99 100 01/30/18 05:35 01/30/18 06:00 01/30/18 06:05 Temperature 97.6 F Pulse Rate 65 60 60 Respiratory Rate 18 17 17 Blood Pressure 157/85 H 159/96 H 159/96 H Pulse Oximetry 98 99 99 01/30/18 09:00 01/30/18 09:02 Temperature 97.2 F L Pulse Rate 61 Respiratory Rate 12 Blood Pressure 106/56 L Pulse Oximetry 98 99 Intake & Output 01/29/18 01/30/18 01/30/18 18:59 06:59 18:59 Intake Total 63 / 63 Output Total 150 / 150 Balance -87 / -87 Weight 79.3 kg 79.3 kg Intake: IV 63 / 63 Activase Drip 63 MG In Bag/ 63 / 63 Syringe 1 EACH @ 63 mls/hr IV. SIG ONCE ONE Rx#:[id number] Output: Urine Amount (Catheter) 150 / 150 Indwelling Urethral Catheter 150 / 150 Other: Weight On Admission 79.3 kg Result Diagrams: 01/30/18 03:00 01/30/18 03:00 Objective Remarks: - Imaging Impressions Chest X-Ray 01/30/18 02:36 CONCLUSION: No evidence of acute cardiopulmonary disease. Head CT 01/30/18 02:36 CONCLUSION: Suspected acute thrombosis of the left middle cerebral artery. Stat CTA is recommended. Emergent transfer to the main hospital should be arranged. No perceptible parenchymal changes at this time. Report called to the emergency room physician Dr. Pinon at 2:52 AM. Report was called by [ ] Head CTA 01/30/18 02:52 CONCLUSION: Thrombosed left internal carotid artery and extending into the left middle cerebral artery. Neck CTA 01/30/18 03:19 CONCLUSION: 1. Acute appearing thrombosis of the left internal carotid artery beginning about 1 cm above the bifurcation and extending intracranially into the left middle cerebral artery. 2. Atherosclerosis of the bilateral carotid bulbs and proximal internal carotid arteries with low-grade and very short segment narrowing. 3. No acute vertebrobasilar abnormality. - Constitutional Restless, constantly moving - Routine HEENT Exam Head: Present: normocephalic, atraumatic Eye: Present: PERRL, normal accommodation ENT: Present: mucous membranes moist - Routine Neck Exam Present: supple, full ROM. Airway widely patent. - Routine Respiratory Exam Comfortable respiratory pattern. absent: accessory muscle use, rhonchi, stridor , wheezes - Routine Cardiovascular Exam Present: RRR, S1, S2. Absent: murmur, gallop, rubs, JVD - Routine Abdominal Exam Present: soft, normoactive bowel sounds. Absent: tenderness, distention, guarding - Routine Extremities Exam Warm, well-perfused. Absent: cyanosis, clubbing, edema - Routine Skin Exam Present: intact. Absent: cyanosis, erythema - Routine Neurological Exam -PERRL. Moves left arm and leg spontaneously. Very weak right upper extremity movement. Moves right leg spontaneously. Aphasia with incomprehensible speech. Assessment and Plan - Assessment and Plan Plan: Acute MCA CVA -Acute thrombosis left internal carotid artery superimposed on chronic atherosclerosis -Status post TPA administration -IR consultation and stent placement with thrombus retrieval -BP control -Neuro checks per unit protocol -PT and OT as tolerated -Monitor in the ICU for possible intubation and brain edema -Further management workup per neurology -MRI later today when agitation controlled. Hypertension -Nicardipine drip with SBP goal less than 180 -Vasotec, labetalol as needed Dyslipidemia -Atorvastatin DVT GI prophylaxis -Teds SCDs -Heparin subcu 24 hours post TPA -Pepcid, convert to Protonix twice daily Positive toxicology screen -Cocaine Chronic daily alcohol abuse -Precedex drip infusion -Try to avoid benzodiazepines sedation except for seizures.
[2018-01-30] MEDS: Pantoprazole Inj 40 MG Vial IV.PUSH SCH (15:06)
--- NOTE | 2018-01-30 15:55 | MR ---
EXAM DATE: 01/30/2018 3:50 PM EDT AGE/SEX: 57 years / Male INDICATIONS: Stroke. CLINICAL DATA: This is the patient's initial encounter. Patient reports that signs and symptoms have been present for 1 day and indicates a pain score of 0/10. MEDICAL/SURGICAL HISTORY: None. Appendectomy. Carotid stent. COMPARISON: [facility], MR HEAD W/O CONTRAST, 01/30/2018. [facility], THROMBECTOMY INTRACRANIAL L, 01/30/2018. [facility], CTA HEAD W CONTRAST W 3D, 01/30/2018. . TECHNIQUE: 3D tymx-be-cmlsog MRA was performed. Source images, multiplanar STS MIP, and 3D volum e MIP reconstructions were reviewed. FINDINGS: There is excellent visualization of the major intracranial arteries out to the second-order branch ve ssels. There is no evidence for aneurysm, vessel truncation or stenosis, and no evidence for vascula r malformation. CONCLUSION: 1. Negative MRA [place] ([place] [facility] [place]) non contrast. Electronically signed by: Haile Dawson MD 01/30/2018 3:54 PM EDT
--- NOTE | 2018-01-30 15:57 | MR ---
EXAM DATE: 01/30/2018 3:53 PM EDT AGE/SEX: 57 years / Male INDICATIONS: Stroke. CLINICAL DATA: This is the patient's initial encounter. Patient reports that signs and symptoms have been present for 1 day and indicates a pain score of 0/10. MEDICAL/SURGICAL HISTORY: None. Appendectomy. Carotid stent. COMPARISON: [facility], MRA HEAD W/O CONTRAST, 01/30/2018. [facility], CTA HEAD W CONTRAST W 3D, 01/30/2018. [facility], CT HEAD W/O CONTRAST, 01/30/2018. . TECHNIQUE: Multiplanar, multisequence examination of the brain was performed without contrast. FINDINGS: Diffusion weighted images demonstrate a large area of restricted diffusion involving the left occipit al, parietal, temporal and frontal lobes as well as the insular cortex and basal ganglia. There is mi ld mass effect with partial effacement of the left lateral ventricle identified. There is no intracra nial hemorrhage. The areas of restricted diffusion and corresponding increased FLAIR and T2 signal. T here are no masses. CONCLUSION: 1. Large area of acute infarction involving the left cerebral hemisphere. Electronically signed by: Haile Dawson MD 01/30/2018 3:56 PM EDT
[2018-01-30] MEDS: Insulin NovoLOG Aspart Correctional Sugar Inj SQ SCH ×4 (18:00→20:13)
[2018-01-30] MEDS: Senna/Docusate Sodium 8.6/50 MG Tablet PO SCH ×2 (18:40→20:14)
[2018-01-31] MEDS: Pantoprazole Inj 40 MG Vial IV.PUSH SCH ×2 (02:59→14:53)
[2018-01-31] MEDS: Chlorhexidine Gluconate 2% 1 Pack (2 Cloths) TOPICAL SCH (03:13)
[2018-01-31] MEDS: Sod Chloride 0.9% Inj 1,000 ML IV.CONT SCH ×3 (03:13→12:52)
[2018-01-31] MEDS ORDERED: Chlorhexidine Gluconate 2% 1 Pack (2 Cloths) TOPICAL PRN (04:00)
--- NOTE | 2018-01-31 04:34 | CT ---
EXAM DATE: 01/31/2018 4:26 AM EDT AGE/SEX: 57 years / Male INDICATIONS: Post 24 hour TPA scan. Evaluate stroke. CLINICAL DATA: This is the patient's subsequent encounter. Patient reports that signs and symptoms h ave been present for 1 day and indicates a pain score of 0/10. MEDICAL/SURGICAL HISTORY: Hypertension. Appendectomy. RADIATION DOSE: 56.35 CTDI (mGy) COMPARISON: [facility] [place] W/O CONTRAST, 01/30/2018. . TECHNIQUE: CT of the head without contrast. Using automated exposure control and adjustment of the mA and/or kV according to patient size, radiation dose was kept as low as reasonably achievable to ob tain optimal diagnostic quality images. DICOM format image data is available electronically for revi ew and comparison. FINDINGS: Hypodensity is present in the left cerebral hemisphere in the distribution of diffusion weighted sign al abnormality on MRI. There is associated mass effect with effacement of the anterior horn of left l ateral ventricle and 4 mm of [id number] midline shift. No evidence of acute hemorrhage. CONCLUSION: 1. Acute left cerebral hemisphere infarcts in the MCA distribution again seen. No evidence of acute hemorrhage. 2. Mass effect with 4 mm left to right midline shift. . Electronically signed by: Jalen Robin MD 01/31/2018 4:33 AM EDT
[2018-01-31 04:58] LABS: Baso % (Auto) 0.4 % (0.0-2.0); Eos % (Auto) 0.3 % (0.0-4.0); Hematocrit 35.6 % (39.0-51.0); Hemoglobin 12.3 gm/dL (13.0-17.0); Lymph # (Auto) 0.9 th/mm3 (1.0-4.8); Lymph % (Auto) 8.9 % (9.0-44.0); Mean Corpuscular HGB Conc 34.4 % (32.0-36.0); Mean Corpuscular Hemoglobin 34.2 pg (27.0-34.0); Mean Corpuscular Volume 99.4 fL (80.0-100.0); Mean Platelet Volume 7.7 fL (7.0-11.0); Mono # (Auto) 0.7 th/mm3 (0.0-0.9); Mono % (Auto) 7.3 % (0.0-8.0); Neut # (Auto) 8.3 th/mm3 (1.8-7.7); Neut % (Auto) 83.1 % (16.0-70.0); Platelet Count 202 th/mm3 (150-450); Red Blood Count 3.58 mil/mm3 (4.50-5.90); Red Cell Distribution Width 13.2 % (11.6-17.2)
[2018-01-31 05:06] LABS: Activated Partial Thrombo Time 24.3 sec (24.3-30.1); Prothrombin Time 10.5 sec (9.8-11.6)
[2018-01-31 05:24] LABS: Albumin 3.3 g/dL (3.4-5.0); Anion Gap 9 meq/L (5-15); Aspartate Aminotransferase 26 U/L (15-37); Blood Urea Nitrogen 8 mg/dL (7-18); Calcium 8.1 mg/dL (8.5-10.1); Carbon Dioxide 22.7 meq/L (21.0-32.0); Chloride 109 meq/L (98-107); Glomerular Filtration Rate 89 mL/min (>89); Glucose,Random 117 mg/dL (74-106); Potassium 3.9 meq/L (3.5-5.1); Sodium 141 meq/L (136-145)
[2018-01-31 05:25] LABS: Alanine Aminotransferase 20 U/L (12-78); Cholesterol 194 mg/dL (120-200)
[2018-01-31 05:30] LABS: Alkaline Phosphatase 55 U/L (45-117); Chol/HDL Ratio 5.91 Ratio; HDL Cholesterol 32.8 mg/dL (40.0-60.0); LDL Cholesterol,Calculated 117 mg/dL (0-99); Phosphorus 2.9 mg/dL (2.5-4.9); Total Protein 6.2 g/dL (6.4-8.2); Triglycerides 223 mg/dL (42-150)
[2018-01-31] MEDS ORDERED: Heparin - SQ 10,000 UNITS/ML Vial SQ SCH (06:00)
[2018-01-31] MEDS: Insulin NovoLOG Aspart Correctional Sugar Inj SQ SCH ×4 (08:44→20:33)
[2018-01-31] MEDS: Senna/Docusate Sodium 8.6/50 MG Tablet PO SCH ×3 (08:46→20:32)
--- NOTE | 2018-01-31 10:07 | P.PNNEU ---
Subjective Subjective Comments: No acute events Active Medications: Active Medications Acetaminophen (Tylenol) 650 mg PO Q6H PRN PRN Reason: PAIN 1-10 AND/OR FEVER >101F Al Hydroxide/Mg Hydroxide (Milk Of Magnesia Liq) 30 ml PO Q12H PRN PRN Reason: Mild Constipation Albuterol (Duoneb Neb (Prn)) 1 ampul NEB Q2HR NEB PRN PRN Reason: WHEEZING Albuterol (Duoneb Neb (Prn)) 1 ampul NEB Q6HR NEB PRN PRN Reason: congestion, wheezing Bisacodyl (Dulcolax Supp) 10 mg RECTAL DAILY PRN PRN Reason: SEVERE CONSITIPATION Chlorhexidine Gluconate (Chlorhexidine 2% Cloth) 3 pack TOPICAL DAILY@0400 [facility] Stop: 02/05/18 03:59 Last Admin: 01/31/18 03:13 Dose: Not Given Chlorhexidine Gluconate (Chlorhexidine 2% Cloth) 3 pack TOPICAL DAILY@0400 PRN PRN Reason: Extra cloth needed Stop: 02/05/18 03:59 Dextrose (D50w Vial) 50 ml IV.PUSH UNSCH PRN PRN Reason: PER HYPOGLYCEMIA PROTOCOL Enalaprilat (Vasotec Inj) 1.25 mg IV.PUSH Q4H PRN PRN Reason: For SBP > 220 or DBP > 120 Glucagon (Glucagon Inj) 1 mg OTHER UNSCH PRN PRN Reason: for Hypoglycemia Protocol Sodium Chloride (Ns Inj) 1,000 mls @ 100 mls/hr IV.CONT .Q10H [facility] Last Admin: 01/31/18 09:24 Dose: 100 mls/hr Nicardipine HCl 25 mg/ Sodium (Chloride) 250 mls @ 50 mls/hr IV.CONT TITRATE PRN; Protocol PRN Reason: Per Protocol Insulin Aspart (Novolog Insulin Correctional Sugar Inj) 0 unit SQ ACHS JUAN; Protocol Last Admin: 01/31/18 08:44 Dose: Not Given Labetalol HCl (Trandate Inj) 10 mg IV.PUSH Q2H PRN PRN Reason: For SBP > 220 or DBP > 120 Lactulose (Lactulose Liq) 30 ml PO DAILY PRN PRN Reason: SEVERE CONSITIPATION Ondansetron HCl (Zofran Inj) 4 mg IV.PUSH Q6H PRN PRN Reason: NAUSEA OR VOMITING Pantoprazole Sodium (Protonix Inj) 40 mg IV.PUSH Q12H [facility] Last Admin: 01/31/18 02:59 Dose: 40 mg Pravastatin Sodium (Pravachol) 40 mg PO HS [facility] Last Admin: 01/30/18 20:14 Dose: Not Given Senna/Docusate Sodium (Malou-Colace) 1 tab PO BID [facility] Last Admin: 01/31/18 08:46 Dose: Not Given Sennosides (Senokot) 17.2 mg PO Q12H PRN PRN Reason: Moderate Constipation Sodium Chloride (Ns Flush) 2 ml IV.FLUSH BID [facility] Last Admin: 01/31/18 08:45 Dose: 2 ml Sodium Chloride (Ns Flush) 2 ml IV.FLUSH PRN PRN PRN Reason: FLUSH AFTER USING IV ACCESS Allergies/Adverse Reactions: Allergies Allergy/AdvReac Type Severity Reaction Status Date / Time No Known Allergies Allergy Unverified 01/30/18 02:36 Review of Systems unobtainable due to mental condition Physical Exam Vital signs: Vital Signs 01/30/18 12:00 01/30/18 14:00 01/30/18 16:00 Temperature 97.6 F 97.6 F Pulse Rate 56 L 56 L 56 L Respiratory Rate 14 15 Blood Pressure 106/62 119/74 Pulse Oximetry 98 98 98 01/30/18 18:00 01/30/18 19:00 01/30/18 20:00 Temperature 97.8 F Pulse Rate 55 L 54 L 66 Respiratory Rate 15 20 Blood Pressure 120/68 105/50 L Pulse Oximetry 97 95 97 01/30/18 21:00 01/30/18 22:00 01/30/18 22:27 Temperature Pulse Rate 70 56 L Respiratory Rate 20 16 Blood Pressure 118/67 120/56 L Pulse Oximetry 96 95 96 01/31/18 00:00 01/31/18 04:00 01/31/18 05:00 Temperature 98.1 F 98.3 F Pulse Rate 55 L 63 51 L Respiratory Rate 14 22 Blood Pressure 104/58 L 107/58 L Pulse Oximetry 96 98 01/31/18 07:58 Temperature Pulse Rate Respiratory Rate Blood Pressure Pulse Oximetry 95 Intake & Output 01/30/18 01/31/18 01/31/18 18:59 06:59 18:59 Intake Total 1000 / 1000 1000 / 1000 1000 / 1000 Output Total 1150 / 1150 1100 / 1100 Balance -150 / -150 -100 / -100 1000 / 1000 Weight 79.3 kg 79.5 kg Intake: IV 1000 / 1000 1000 / 1000 1000 / 1000 NS Inj 1,000 ML @ 100 mls/hr IV 1000 / 1000 1000 / 1000 1000 / 1000 .CONT .Q10H JUAN Rx#:[id number] Oral 0 / 0 Output: Urine Amount (Catheter) 1150 / 1150 1100 / 1100 Indwelling Urethral Catheter 1150 / 1150 1100 / 1100 Other: Weight On Admission 79.3 kg Narrative: GENERAL: in NAD, SKIN: Warm and dry. HEAD: Atraumatic. Normocephalic. EYES: Pupils equal and round. No scleral icterus. ENT: No nasal bleeding or discharge. Mucous membranes pink and moist. NECK: Trachea midline. No JVD. CARDIOVASCULAR: Regular rate and rhythm. RESPIRATORY: No accessory muscle use. GASTROINTESTINAL: Abdomen soft, non-tender, nondistended. MUSCULOSKELETAL: Extremities without clubbing, cyanosis, or edema. No obvious deformities. NEUROLOGICAL: Drowsy but alerts mild left gaze preference global aphasia, right lower facial weakness, right hemiplegia withdraws localized to the left side PSYCHIATRIC: Calm - Constitutional no acute distress - Routine HEENT Exam Head: Present: normocephalic - Urinary Catheter Management Indwelling Urethral Catheter Cath placed during this visit: yes Reason for continuing: Hourly intake/output Insertion date: 01/30/18 Insertion time: 02:50 Objective Laboratory Results - last 24 hr 01/30/18 01/30/18 01/30/18 09:42 10:04 17:46 WBC RBC Hgb Hct MCV MCH MCHC RDW Plt Count MPV Neut % (Auto) Lymph % (Auto) [place] % (Auto) Eos % (Auto) Baso % (Auto) Neut # (Auto) Lymph # (Auto) [place] # (Auto) Eos # (Auto) Baso # (Auto) WBC Differential Differential Comment PT 11.5 INR 1.1 APTT 73.9 H D Sodium Potassium Chloride Carbon Dioxide Anion Gap BUN Creatinine Estimated GFR POC Glucose 133 H 104 Random Glucose Calcium Phosphorus Magnesium Total Bilirubin AST ALT Alkaline Phosphatase Total Protein Albumin Triglycerides Cholesterol LDL Cholesterol, Calc HDL Cholesterol Cholesterol/HDL Ratio 01/30/18 01/31/18 01/31/18 19:32 04:45 04:45 WBC 10.0 RBC 3.58 L Hgb 12.3 L Hct 35.6 L MCV 99.4 MCH 34.2 H MCHC 34.4 RDW 13.2 Plt Count 202 MPV 7.7 Neut % (Auto) 83.1 H Lymph % (Auto) 8.9 L [place] % (Auto) 7.3 Eos % (Auto) 0.3 Baso % (Auto) 0.4 Neut # (Auto) 8.3 H Lymph # (Auto) 0.9 L [place] # (Auto) 0.7 Eos # (Auto) 0.0 Baso # (Auto) 0.0 WBC Differential . Differential Comment Auto diff final PT 10.5 INR 1.0 APTT 24.3 D Sodium Potassium Chloride Carbon Dioxide Anion Gap BUN Creatinine Estimated GFR POC Glucose 102 Random Glucose Calcium Phosphorus Magnesium Total Bilirubin AST ALT Alkaline Phosphatase Total Protein Albumin Triglycerides Cholesterol LDL Cholesterol, Calc HDL Cholesterol Cholesterol/HDL Ratio 01/31/18 01/31/18 04:45 08:12 WBC RBC Hgb Hct MCV MCH MCHC RDW Plt Count MPV Neut % (Auto) Lymph % (Auto) [place] % (Auto) Eos % (Auto) Baso % (Auto) Neut # (Auto) Lymph # (Auto) [place] # (Auto) Eos # (Auto) Baso # (Auto) WBC Differential Differential Comment PT INR APTT Sodium 141 Potassium 3.9 Chloride 109 H Carbon Dioxide 22.7 Anion Gap 9 BUN 8 Creatinine 0.89 Estimated GFR 89 POC Glucose 132 H Random Glucose 117 H Calcium 8.1 L Phosphorus 2.9 Magnesium 2.0 Total Bilirubin 0.7 AST 26 ALT 20 Alkaline Phosphatase 55 Total Protein 6.2 L Albumin 3.3 L Triglycerides 223 H Cholesterol 194 LDL Cholesterol, Calc 117 H HDL Cholesterol 32.8 L Cholesterol/HDL Ratio 5.91 Review/Management - Diagnosis (1) Acute ischemic left middle cerebral artery (MCA) stroke Code(s): I63.512 - Cerebral infarction due to unspecified occlusion or stenosis of left middle cerebral artery Status: Acute Current Visit: Yes (2) Left carotid stenosis Code(s): I65.22 - Occlusion and stenosis of left carotid artery Status: Acute Current Visit: Yes (3) Hypertension Code(s): I10 - Essential (primary) hypertension Status: Acute Current Visit : Yes (4) Tobacco use Code(s): Z72.0 - Tobacco use Status: Acute Current Visit: Yes - Review/Management Plan: Left high-grade stenosis/dissection status post IV TPA, status post stent placement Risk factors include chronic tobacco use and hypertension Recommendations Neuro stable CT brain scan reviewed moderate size stroke; mild mass-effect Repeat CT brain scan in the a.m. if any worsening or persistent drowsiness repeat CAT scan CT brain scan status post 24 hours of IV TPA no ICH noted Will start Plavix; may require NG tube Blood pressure less than 180/100 SCDs Echo Lipid, TSH, B12, HbA1c Tobacco cessation Therapy Telemetry Patient is critically ill needs to be in the ICU Discussed with daughter, RN
--- NOTE | 2018-01-31 10:45 | P.PNCC ---
Subjective Subjective Remarks/Hospital Course: 57-year-old unfortunate gentleman presents [place] emergency department as a stroke alert. His reports that they went to bed shortly after midnight. Approximately 10-15 minutes before calling EMS, she states that he seemed to be normal. She states that he had taken all the covers which resulted in a brief conversation between the 2 of them. He seemed okay at that time. Then, approximately 10 minutes later, she noticed that he seemed very restless. She noticed that he had altered mental status and had been incontinent of urine. He was trying to get off the bed and she called 911. EVAC reports right-sided paralysis, aphasia and urinary incontinence. On arrival to [place] emergency department the patient was aphasic. He is a little bit agitated. He has some right-sided facial weakness as well as weakness of the right upper and lower extremities. He was taken emergently for CT of the head which was negative for bleed. TPA infusion was then initiated. The case was discussed with Dr. Acuna. The CTA of the head and neck showed thrombosed left internal carotid artery and extending into the left middle cerebral artery. The patient was emergently taken to IR suite for possible intervention. 01/30 1330 hours: Left internal carotid artery stent placed with embolic filter. Fresh thrombus retrieved from the MCA distribution. Patient brought back to the [facility] on heparin drip where I met him on his arrival. Discussed with bedside nurse the need to clarify heparin order. It does not appear that a dissection was present here, rather thrombotic occlusion of a pre-existing atherosclerotic plaque. Nicardipine infusion for blood pressure control. Patient is restless and may well require Precedex for control during MRI later today. Complicating features include the presence of cocaine in the toxicology screen. By family admission the patient is a chronic alcoholic. We will need to deal with withdrawal symptomatology as well. Risk of gastrointestinal hemorrhage increased, will convert to twice daily Protonix. Follow airway closely. Frequent neurologic assessment required. 01/31: Patient's reports that the patient was "restless" overnight, no other overnight events. Speech therapy/ PT eval today. Objective Vital Signs / I&O: Vital Signs 01/30/18 12:00 01/30/18 14:00 01/30/18 16:00 Temperature 97.6 F 97.6 F Pulse Rate 56 L 56 L 56 L Respiratory Rate 14 15 Blood Pressure 106/62 119/74 Pulse Oximetry 98 98 98 01/30/18 18:00 01/30/18 19:00 01/30/18 20:00 Temperature 97.8 F Pulse Rate 55 L 54 L 66 Respiratory Rate 15 20 Blood Pressure 120/68 105/50 L Pulse Oximetry 97 95 97 01/30/18 21:00 01/30/18 22:00 01/30/18 22:27 Temperature Pulse Rate 70 56 L Respiratory Rate 20 16 Blood Pressure 118/67 120/56 L Pulse Oximetry 96 95 96 01/31/18 00:00 01/31/18 04:00 01/31/18 05:00 Temperature 98.1 F 98.3 F Pulse Rate 55 L 63 51 L Respiratory Rate 14 22 Blood Pressure 104/58 L 107/58 L Pulse Oximetry 96 98 01/31/18 07:58 Temperature Pulse Rate Respiratory Rate Blood Pressure Pulse Oximetry 95 Intake & Output 01/30/18 01/31/18 01/31/18 18:59 06:59 18:59 Intake Total 1000 / 1000 1000 / 1000 1000 / 1000 Output Total 1150 / 1150 1100 / 1100 Balance -150 / -150 -100 / -100 1000 / 1000 Weight 79.3 kg 79.5 kg Intake: IV 1000 / 1000 1000 / 1000 1000 / 1000 NS Inj 1,000 ML @ 100 mls/hr IV 1000 / 1000 1000 / 1000 1000 / 1000 .CONT .Q10H [facility], [facility]–1983 Rx#:[id number] Oral 0 / 0 Output: Urine Amount (Catheter) 1150 / 1150 1100 / 1100 Indwelling Urethral Catheter 1150 / 1150 1100 / 1100 Other: Date of Last Bowel Movement 02/05/18 Weight On Admission 79.3 kg Result Diagrams: 01/31/18 04:45 01/31/18 04:45 Objective Remarks: - Imaging Impressions Chest X-Ray 01/30/18 02:36 CONCLUSION: No evidence of acute cardiopulmonary disease. Head CT 01/30/18 02:36 CONCLUSION: Suspected acute thrombosis of the left middle cerebral artery. Stat CTA is recommended. Emergent transfer to the main hospital should be arranged. No perceptible parenchymal changes at this time. Report called to the emergency room physician Dr. Pinon at 2:52 AM. Report was called by [ ] Head CTA 01/30/18 02:52 CONCLUSION: Thrombosed left internal carotid artery and extending into the left middle cerebral artery. Neck CTA 01/30/18 03:19 CONCLUSION: 1. Acute appearing thrombosis of the left internal carotid artery beginning about 1 cm above the bifurcation and extending intracranially into the left middle cerebral artery. 2. Atherosclerosis of the bilateral carotid bulbs and proximal internal carotid arteries with low-grade and very short segment narrowing. 3. No acute vertebrobasilar abnormality. PHYSICAL EXAM: GEN: Well-nourished, well-developed, no acute distress HEENT: Right-sided facial droop, NCAT NECK: Trachea midline CARDIO: Regular rate and rhythm, no murmurs PULM: Clear to auscultation bilaterally ABD/GI: Soft, non-tender, non-distended EXT: No peripheral edema SKIN: No rashes or lesions NEURO: Awake and alert, incomprehensible speech, motor strength 5/5 in left upper and lower extremities, 1/5 in right upper extremity, 0/5 right lower extremity. Flattening of right nasolabial fold. Pupils 3 mm and reactive. EOMI, no right-sided neglect. Assessment and Plan - Assessment and Plan Plan: Acute MCA CVA Acute thrombosis of left internal carotid artery superimposed on chronic atherosclerosis * S/P TPA administration >24 hours ago * S/P IR stent placement with thrombus retrieval * BP control * Neuro checks per unit protocol * PT and OT as tolerated Cerebral edema * Monitor in the ICU for possible intubation or worsening mental status * Patient noted to have 4 mm midline shift on CT scan, at very high risk for malignant MCA syndrome; will start hypertonic saline today * Repeat CTH tomorrow morning, will obtain stat CTH if mental status changes * MRI/MRA yesterday showed large left cerebral infarct, no abnormalities of COW Hypertension * Off cardene drip, BP now 100s-120s * Vasotec, labetalol as needed Dyslipidemia * Pravastatin DVT GI prophylaxis * SCDs. SC heparin * BID protonix as patient is at high risk for GI bleeding following tPA; will change this back to once daily tomorrow * Speech eval today, start diet if patient passes, NGT if he fails Positive toxicology screen * Cocaine Chronic daily alcohol abuse * MVI/ thiamine * Try to avoid benzodiazepines sedation except for seizures so as not to cloud neuro exam * No signs of EtOH withdrawal presently Overall impression: This patient remains stable but still critically ill. He is at high risk for acute neurological decompensation from cerebral edema. He needs continued ICU level of care. Counseling/ Coordination of Care: Total critical care time spent is 41 minutes. This includes examining the patient, gathering history from someone other than the patient (i.e. chart review), discussing the patient's care with other providers, managing the patient's blood pressure, ordering and interpreting radiologic studies, ordering and interpreting laboratory values, management of hyperosmolar therapy for cerebral edema, re-evaluation at frequent intervals, and documentation. Amount of time is separate from teaching, counseling the patient and/or family, and exclusive of procedures. Code Status: Full
[2018-01-31] MEDS ORDERED: Sodium Bicarbonate 8.4% Inj 50 MEQ/50 ML Syringe IV.PUSH ONE (11:00)
[2018-01-31 11:47] LABS: Sodium 144 meq/L (136-145)
[2018-01-31] MEDS: Sodium Chloride 23.4% Inj 188 MEQ in Sod Chloride 0.9% Inj 1,000 ML IV.CONT SCH ×2 (11:57→20:49)
[2018-01-31] MEDS ORDERED: Multivitamin Inj 10 ML, Thiamine Inj 100 MG, Folic Acid Inj 1 MG in Sodium Chlor 0.9% I... IV.SIG SCH (12:00)
--- NOTE | 2018-01-31 12:14 | P.CONNS ---
History of Present Illness Service: Neurosurgery Consult date: 01/31/18 Requesting Physician: Shimon Acuna (Neurology) Reason for Consult: Left hemisphere stroke Primary Care Provider: UNKNOWN Family Provider: UNKNOWN Chief Complaint: Stroke alert History of Present Illness: 57-year-old gentleman who presented to [place] emergency department as a stroke alert around 2:00 AM on 01/30/2018. He was brought to the emergency room via EMS found to be very restless and altered mental status with urinary incontinence along with a aphasia and right side paralysis. relates that he went to bed around midnight and subsequently noticed that he was very restless with acute neurologic deficits noted. Initial CT scan did not reveal any bleed and TPA was initiated and neurology also consulted with the CTA of the head revealing a thrombosed left carotid artery and thrombus extension into the left middle cerebral artery. He underwent left carotid artery thrombolysis with the stent placement. Follow-up CT scan of the head reveals areas of stroke in the left MCA territory in the basal ganglia caudate head as well as in the parietal aspect with some mild midline shift about 4 mm. Patient is still able to maintain his airway although slightly lethargic is opening his eyes but unable to communicate given the aphasia as well as right hemiplegia. He is being monitored closely in the surgical intensive care unit and plans are for intubation for airway control should his neurologic condition deteriorate and neurosurgery consulted in case he requires hemicraniectomy. Review of Systems All other systems reviewed negative except as stated in HPI, unobtainable due to mental condition (Patient has aphasia and unable to relate much of a history or communicate) Ears, Nose, Mouth, and Throat: Reports nasal congestion, Reports nasal obstruction (Chronic nasal congestion secondary to old nasal fracture uses saline drip) PMF - History History Provided By: Family Member - Medical History Medical History: Medical History (Last Reviewed 01/31/18 @ 12:13 by Jem Neville MD) Hypertension - Surgical History Surgical History: Surgical History (Last Reviewed 01/31/18 @ 12:13 by Jem Neville MD) History of appendectomy - Tobacco History Second Hand Smoke Exposure: No Tobacco Use In Past 30 Days: Yes Smoking Status: Current every day smoker Tobacco Type: Cigarettes - Alcohol History How Often Do You Have a Drink Containing Alcohol: 4 or more times a week - Substance Use History Substance History: Unable to Obtain - Substance Use Type Crack/Cocaine Status: Active Route Used: Inhalation Reason for Use: Get High Comment: states patient snorts cocaine, unknown last time used - Travel History Recent Travel in the [place] Within the Last 8 Weeks: No Recent Travel Out of the Country Within the Last 8 Weeks: No - Immunization History Tetanus Immunization: Unsure Hx Influenza Vaccine This Season: Unable to Assess Medications and Allergies Active Medications: Active Medications Acetaminophen (Tylenol) 650 mg PO Q6H PRN PRN Reason: PAIN 1-10 AND/OR FEVER >101F Al Hydroxide/Mg Hydroxide (Milk Of Magnneema Lirobert) 30 ml PO Q12H PRN PRN Reason: Mild Constipation Albuterol (Duoneb Neb (Prn)) 1 ampul NEB Q2HR NEB PRN PRN Reason: WHEEZING Albuterol (Duoneb Neb (Prn)) 1 ampul NEB Q6HR NEB PRN PRN Reason: congestion, wheezing Bisacodyl (Dulcolax Supp) 10 mg RECTAL DAILY PRN PRN Reason: SEVERE CONSITIPATION Chlorhexidine Gluconate (Chlorhexidine 2% Cloth) 3 pack TOPICAL DAILY@0400 [facility] Stop: 02/05/18 03:59 Last Admin: 01/31/18 03:13 Dose: Not Given Chlorhexidine Gluconate (Chlorhexidine 2% Cloth) 3 pack TOPICAL DAILY@0400 PRN PRN Reason: Extra cloth needed Stop: 02/05/18 03:59 Clopidogrel Bisulfate (Plavix) 75 mg PO DAILY [facility] Last Admin: 01/31/18 10:50 Dose: 75 mg Dextrose (D50w Vial) 50 ml IV.PUSH UNSCH PRN PRN Reason: PER HYPOGLYCEMIA PROTOCOL Enalaprilat (Vasotec Inj) 1.25 mg IV.PUSH Q4H PRN PRN Reason: For SBP > 220 or DBP > 120 Glucagon (Glucagon Inj) 1 mg OTHER UNSCH PRN PRN Reason: for Hypoglycemia Protocol Sodium Chloride (Ns Inj) 1,000 mls @ 100 mls/hr IV.CONT .Q10H [facility] Last Infusion: 01/31/18 11:58 Dose: 0 mls/hr Multivitamins 10 ml/ Thiamine HCl 100 mg/ Folic Acid 1 mg/Sodium Chloride 511.2 mls @ 127.8 mls/hr IV.SIG Q24H [facility] Last Admin: 01/31/18 11:53 Dose: 127.8 mls/hr Sodium Chloride 188 meq/ (Sodium Chloride) 1,047 mls @ 100 mls/hr IV.CONT .[id number] [facility] Last Admin: 01/31/18 11:57 Dose: 100 mls/hr Insulin Aspart (Novolog Insulin Correctional Sugar Inj) 0 unit SQ [facility]; Protocol Last Admin: 01/31/18 08:44 Dose: Not Given Labetalol HCl (Trandate Inj) 10 mg IV.PUSH Q2H PRN PRN Reason: For SBP > 220 or DBP > 120 Lactulose (Lactulose Liq) 30 ml PO DAILY PRN PRN Reason: SEVERE CONSITIPATION Ondansetron HCl (Zofran Inj) 4 mg IV.PUSH Q6H PRN PRN Reason: NAUSEA OR VOMITING Pantoprazole Sodium (Protonix Inj) 40 mg IV.PUSH Q12H [facility] Last Admin: 01/31/18 02:59 Dose: 40 mg Pravastatin Sodium (Pravachol) 40 mg PO HS [facility] Last Admin: 01/30/18 20:14 Dose: Not Given Senna/Docusate Sodium (Malou-Colace) 1 tab PO BID [facility] Last Admin: 01/31/18 10:51 Dose: 1 tab Sennosides (Senokot) 17.2 mg PO Q12H PRN PRN Reason: Moderate Constipation Sodium Chloride (Ns Flush) 2 ml IV.FLUSH BID [facility] Last Admin: 01/31/18 08:45 Dose: 2 ml Sodium Chloride (Ns Flush) 2 ml IV.FLUSH PRN PRN PRN Reason: FLUSH AFTER USING IV ACCESS Allergies Allergy/AdvReac Type Severity Reaction Status Date / Time No Known Allergies Allergy Unverified 01/30/18 02:36 Home Medications Medication Instructions Recorded Confirmed Type Unable to Obtain Home Meds 01/30/18 01/30/18 History Exam Vital signs: Vital Signs 01/30/18 14:00 01/30/18 16:00 01/30/18 18:00 Temperature 97.6 F Pulse Rate 56 L 56 L 55 L Respiratory Rate 15 Blood Pressure 119/74 Pulse Oximetry 98 98 97 01/30/18 19:00 01/30/18 20:00 01/30/18 21:00 Temperature 97.8 F Pulse Rate 54 L 66 70 Respiratory Rate 15 20 20 Blood Pressure 120/68 105/50 L 118/67 Pulse Oximetry 95 97 96 01/30/18 22:00 01/30/18 22:27 01/31/18 00:00 Temperature 98.1 F Pulse Rate 56 L 55 L Respiratory Rate 16 14 Blood Pressure 120/56 L 104/58 L Pulse Oximetry 95 96 96 01/31/18 04:00 01/31/18 05:00 01/31/18 07:58 Temperature 98.3 F Pulse Rate 63 51 L Respiratory Rate 22 Blood Pressure 107/58 L Pulse Oximetry 98 95 01/31/18 08:00 Temperature 98.2 F Pulse Rate 60 Respiratory Rate 26 H Blood Pressure 142/81 H Pulse Oximetry 98 Intake & Output 01/30/18 01/31/18 01/31/18 18:59 06:59 18:59 Intake Total 1000 / 1000 1000 / 1000 1000 / 1000 Output Total 1150 / 1150 1100 / 1100 Balance -150 / -150 -100 / -100 1000 / 1000 Weight 79.3 kg 79.5 kg Intake: IV 1000 / 1000 1000 / 1000 1000 / 1000 NS Inj 1,000 ML @ 100 mls/hr IV 1000 / 1000 1000 / 1000 1000 / 1000 .CONT .Q10H [facility] Rx#:[id number] Oral 0 / 0 Output: Urine Amount (Catheter) 1150 / 1150 1100 / 1100 Indwelling Urethral Catheter 1150 / 1150 1100 / 1100 Other: Date of Last Bowel Movement 02/05/18 Weight On Admission 79.3 kg - Constitutional no acute distress - Routine HEENT Exam Head: Present: normocephalic, atraumatic Eye: Present: EOMI, PERRL ENT: Present: mucous membranes moist, oropharynx clear, external ear normal - Routine Neck Exam Present: supple, full ROM - Routine Respiratory Exam Present: CTA bilaterally - Routine Cardiovascular Exam Present: RRR, S1, S2, bradycardia - Routine Abdominal Exam Present: soft, normoactive bowel sounds - Routine Extremities Exam Present: full ROM (Right hemiplegia) - Routine Skin Exam Present: intact - Routine Neurological Exam Present: alert (Severe receptive and expressive aphasia and does not follow commands although does track), CN II-XII intact (Right facial droop and left gaze preference), motor deficit (Right upper extremity hemiplegia and lower extremity 2/5; moves left side spontaneous), facial asymmetry Results - Laboratory Findings CBC and BMP: 01/31/18 04:45 01/31/18 11:00 Abnormal lab findings: Abnormal Labs 01/30/18 01/30/18 01/30/18 03:00 03:00 03:00 RBC 4.09 L Hgb Hct MCH 34.3 H Neut % (Auto) Lymph % (Auto) [place] % (Auto) 10.9 H Neut # (Auto) Lymph # (Auto) APTT 23.3 L Chloride 108 H Estimated GFR 69 L POC Glucose Random Glucose Calcium Troponin I Less than 0.02 L Total Protein Albumin Triglycerides LDL Cholesterol, Calc HDL Cholesterol Urine Cocaine Screen U Cannabinoids Screen 01/30/18 01/30/18 01/30/18 03:00 09:42 10:04 RBC Hgb Hct MCH Neut % (Auto) Lymph % (Auto) [place] % (Auto) Neut # (Auto) Lymph # (Auto) APTT 73.9 H D Chloride Estimated GFR POC Glucose 133 H Random Glucose Calcium Troponin I Total Protein Albumin Triglycerides LDL Cholesterol, Calc HDL Cholesterol Urine Cocaine Screen Pos H U Cannabinoids Screen Pos H 01/31/18 01/31/18 01/31/18 04:45 04:45 08:12 RBC 3.58 L Hgb 12.3 L Hct 35.6 L MCH 34.2 H Neut % (Auto) 83.1 H Lymph % (Auto) 8.9 L [place] % (Auto) Neut # (Auto) 8.3 H Lymph # (Auto) 0.9 L APTT Chloride 109 H Estimated GFR POC Glucose 132 H Random Glucose 117 H Calcium 8.1 L Troponin I Total Protein 6.2 L Albumin 3.3 L Triglycerides 223 H LDL Cholesterol, Calc 117 H HDL Cholesterol 32.8 L Urine Cocaine Screen U Cannabinoids Screen - Diagnostic Findings Additional findings: Impressions Head MRI 01/30/18 00:00 CONCLUSION: 1. Large area of acute infarction involving the left cerebral hemisphere. Chest X-Ray 01/30/18 02:36 CONCLUSION: No evidence of acute cardiopulmonary disease. Head CT 01/30/18 02:36 CONCLUSION: Suspected acute thrombosis of the left middle cerebral artery. Stat CTA is recommended. Emergent transfer to the main hospital should be arranged. No perceptible parenchymal changes at this time. Report called to the emergency room physician Dr. Pinon at 2:52 AM. Report was called by [ ] Head CTA 01/30/18 02:52 CONCLUSION: Thrombosed left internal carotid artery and extending into the left middle cerebral artery. Neck CTA 01/30/18 03:19 CONCLUSION: 1. Acute appearing thrombosis of the left internal carotid artery beginning about 1 cm above the bifurcation and extending intracranially into the left middle cerebral artery. 2. Atherosclerosis of the bilateral carotid bulbs and proximal internal carotid arteries with low-grade and very short segment narrowing. 3. No acute vertebrobasilar abnormality. Head MRA 01/30/18 08:32 CONCLUSION: 1. Negative MRA [place] ([place]) non contrast. Head CT 01/31/18 04:00 CONCLUSION: 1. Acute left cerebral hemisphere infarcts in the MCA distribution again seen. No evidence of acute hemorrhage. 2. Mass effect with 4 mm left to right midline shift. . Assessment and Plan - Assessment (1) Acute ischemic left middle cerebral artery (MCA) stroke Code(s): I63.512 - Cerebral infarction due to unspecified occlusion or stenosis of left middle cerebral artery Status: Acute (2) Left carotid stenosis Code(s): I65.22 - Occlusion and stenosis of left carotid artery Status: Acute - Plan 57-year-old gentleman with a left MCA area stroke with a mild mass-effect and midline shift status post thrombectomy for left ICA and MCA occlusion with stent placement. Continue with close monitoring in the intensive care unit. If his neurologic condition deteriorates and he is unable to protect his airway then he will be intubated for airway controlled and ICP control measures and contemplation of left decompressive hemicraniectomy also will be considered. Discussed with at bedside and nursing staff.
--- NOTE | 2018-01-31 13:17 | ECHRPT ---
Indication: CONCLUSIONS The left ventricular systolic function is normal with an estimated ejection fraction in the range of 55-60%. Normal left ventricular size and wall thickness. No regional wall motion abnormalities present. Aneursymal atrial septum. No atrial level shunt is demonstrated by color flow Doppler interrogation. No prior echo for comparison. BP: / HR: Rhythm: sinus Technical Quality:fair FINDINGS LEFT VENTRICLE Normal left ventricular size. Wall thickness is normal. The left ventricular systolic function is normal with an estimated ejection fraction in the range of 55-60%. RIGHT VENTRICLE Normal right ventricular size and systolic function. LEFT ATRIUM The left atrial size is normal. RIGHT ATRIUM The right atrial size is normal. ATRIAL SEPTUM Atrial septal aneurysm is present (benign finding). No atrial level shunt is demonstrated by color flow Doppler interrogation. AORTA The aortic root and proximal ascending aorta are normal in size on limited imaging. MITRAL VALVE Structurally normal mitral valve. No mitral valve stenosis or regurgitation. AORTIC VALVE Trileaflet aortic valve. No aortic valve stenosis or regurgitation. TRICUSPID VALVE Structurally normal tricuspid valve. No tricuspid valve stenosis or regurgitation. PULMONARY VALVE The pulmonary valve is not well visualized. VESSELS The inferior vena cava is normal in size. PERICARDIUM No pericardial effusion. Vinicius Ballesteros MD (Electronically Signed) Final Date:31 January 2018 13:17
[2018-01-31 15:43] LABS: Hemoglobin A1c 5.9 % (4.3-6.0)
--- NOTE | 2018-01-31 16:41 | IR ---
CORRECTED REPORT, ADDED TIMELINE: 02/04/18 EXAM DATE: 01/30/2018 9:37 AM EDT AGE/SEX: 57 years / Male INDICATIONS: Patient presents as stroke alert in need of cerebral angiogram with possible intracrani al thrombectomy and stenting. CLINICAL DATA: This is the patient's initial encounter. Patient reports that signs and symptoms have been present for 1 day and indicates a pain score of Nonresponsive. MEDICAL/SURGICAL HISTORY: . HTN, Substance abuse. . Appendectomy. COMPARISON: No prior exams available for comparison. FLUORO TIME (min): 22.4 IMAGE SERIES: 30 ACCESS SITE: Right femoral artery CONTRAST (cc): 85 cc Visipaque (iodixanol) MEDICATION(S): 2 g cefazolin (Ancef) IV 5,000 units Heparin IV 1 in Nitro Paste 1 g Vancomycin Intra-procedural antibiotics were given as prescribed above. Anesthesia and pain control was provided by the Anesthesia department. DEVICE(S): Left internal carotid artery SpideRX embolic protection 5.0 mm Left internal carotid artery stent (self expanding) Protege RX 8-6 x 40 135 cm Left internal carotid artery [employer]EVEL [employer]ELOPER balloon 5.0mm x 20mm 135cm Right common femoral artery Perclose 6fr TIMELINE: Interventional Team Called: 05:23 am Interventional Team Arrived: 05:45 am Interventional Team Ready 06:07 am Patient Arrival: 06:34 am Groin Puncture: 06:50 am Recanalization: 08:09 am PROCEDURE : 1. Ultrasound-guided puncture of the access site. 2. Angiography of the access site prior to closure device. 3. Conscious sedation with continuous EKG and Oximetry monitoring. 4. Percutaneous closure of the access site. 5. Angiography of the left middle cerebral artery 6. Stent placement, left internal carotid 7. Post stent balloon angioplasty, left internal carotid. 8. Distal protection, left internal carotid. 9. 2-pass embolectomy, left MCA The risks, benefits and alternatives to the procedure were explained and verbal and written consent w as obtained. The site was prepped in sterile fashion. Full sterile technique was used, including ca p, mask, sterile gloves and gown and a large sterile sheet. Hand hygiene and 2% chlorhexidine and/or betadine/alcohol prep was utilized per protocol for cutaneous antisepsis. Sterile gel and sterile p robe cover were utilized for ultrasound guidance. The skin and subcutaneous tissues were infiltrated with local anesthetic solution. Patient's initial CTA was reviewed demonstrating tapering of the proximal internal carotid artery on the left with eventual occlusion approximately a centimeter and a half from the origin. The entire le ft internal carotid artery remains occluded into the skull base. Near occlusive filling defects are a lso identified in the left middle cerebral artery. There was some filling of the left anterior cerebr al artery probably from [place] of [place] collaterals. Patient did receive IV TPA in the emergency department as per stroke protocol. With ultrasound and fluoroscopic guidance the selected artery was punctured and a vascular sheath was placed. Angiography of the common femoral artery was performed for evaluation prior to percutaneous closure device placement. A YAMILKA 2 catheter was used to select the left common carotid artery. The catheter and wire were advance d into the distal common. Contrast injection revealed thrombolyzes of a good portion of the previousl y seen thrombosis throughout the left internal carotid. This unmasked a high-grade stenosis in the pr oximal left internal which was near occlusive. Therefore, the groin sheath was exchanged over a wire for the 6 Bahraini neuron guide catheter which was advanced up into the common carotid. A verapamil dri p was connected to the side port. The high-grade stenosis in the internal carotid was traversed with a glide wire and 038 hockey-stick Glidecath. Through the glide catheter, a 6 mm spider X protection b asket was advanced into the cervical internal carotid artery. The distal protection in place, repeat angiogram was performed again demonstrating high-grade stenosi s. This run was used as a roadmap to facilitate placement of the tapered 8-6 4cm Protoge self expandi ng stent.. The stent was deployed but there remained a high-grade stenosis in the region of narrowing which was subsequently balloon dilated to 5 mm with an excellent angiographic result. While this did improve flow through the left internal, there was still a significant filling defect identified in t he left M1 and M2 segments. Therefore, after stent deployment, a coaxial system consisting of the Kate wire, Marchman catheter an d the 068-Max Penumbra catheter were advanced through the sheath and into the distal internal carotid . The Marksman catheter and agility wire were used to traverse the area of dense occlusion. Wire was removed and intraluminal position was confirmed with positive contrast showing opacification of the d istal branches of the MCA. The penumbra catheter was then advanced up to the edge of the embolic occl usion. The device was turned to suction for 90 seconds and removed. This demonstrated partial clearin g of the MCA occlusion with some persistent sluggish, but improved flow through the MCA territory. erefore, a second pass was performed as described above. After this pass, there was islam of TI AK grade 3 flow with no residual occlusion identified. Hemostasis was obtained with the prescribed medicated closure device. Conscious sedation was perform ed with the prescribed dosages and duration as above in the presence of an independent trained radiol ogy nurse to assist in the monitoring of the patient. EKG and oximetry remained stable throughout th e procedure. CONCLUSION: 1. Extensive thrombosis of the left internal carotid artery and left MCA vessels. 2. Patient had an excellent response to IV TPA with almost complete resolution of the acute thrombus in the left internal carotid. This unmasked a high-grade nonostial stenosis of the internal which wa s probably the source of emboli to the left MCA territory. 3. The high-grade stenosis was successfully stented and balloon angioplasty with a tapered 8-6, 40 c m Protege stent. 4. Complete clearance of the embolic material from the left M1 and proximal M2 segments with 2 passe s of the 068-max penumbra aspiration catheter. Electronically signed by: Rai Rodríguez MD 01/31/2018 4:40 PM EDT Electronically signed by: Rai Rodríguez MD 02/04/2018 3:49 PM EDT
[2018-01-31 17:06] LABS: Sodium 144 meq/L (136-145)
[2018-02-01] MEDS: Pantoprazole Inj 40 MG Vial IV.PUSH SCH (01:10)
[2018-02-01] MEDS: Chlorhexidine Gluconate 2% 1 Pack (2 Cloths) TOPICAL SCH (03:37)
--- NOTE | 2018-02-01 04:11 | CT ---
EXAM DATE: 02/01/2018 4:04 AM EDT AGE/SEX: 57 years / Male INDICATIONS: Follow up stroke. CLINICAL DATA: This is the patient's subsequent encounter. Patient reports that signs and symptoms h ave been present for 2 days and indicates a pain score of 0/10. MEDICAL/SURGICAL HISTORY: Hypertension. Appendectomy. RADIATION DOSE: 38.43 CTDI (mGy) [place] [facility] [place]. . TECHNIQUE: CT of the head without contrast. Using automated exposure control and adjustment of the mA and/or kV according to patient size, radiation dose was kept as low as reasonably achievable to ob tain optimal diagnostic quality images. DICOM format image data is available electronically for revi ew and comparison. FINDINGS: Left cerebral hemisphere hypodensity again identified indicating acute infarcts. Associated mass effe ct is again seen with effacement of the anterior horn of the left lateral ventricle. 5 mm left to rig ht midline shift. No evidence of acute intracranial hemorrhage or extra-axial fluid collection. CONCLUSION: Involving left MCA distribution infarcts again seen. No evidence of acute hemorrhage. 5 mm left-to-ri ght midline shift. . Electronically signed by: Jalen Robin MD 02/01/2018 4:10 AM EDT
[2018-02-01 05:34] LABS: Hematocrit 35.8 % (39.0-51.0); Hemoglobin 12.6 gm/dL (13.0-17.0); Mean Corpuscular HGB Conc 35.2 % (32.0-36.0); Mean Corpuscular Hemoglobin 34.7 pg (27.0-34.0); Mean Corpuscular Volume 98.5 fL (80.0-100.0); Mean Platelet Volume 8.1 fL (7.0-11.0); Platelet Count 197 th/mm3 (150-450); Red Blood Count 3.63 mil/mm3 (4.50-5.90); Red Cell Distribution Width 12.4 % (11.6-17.2); White Blood Count 9.4 th/mm3 (4.0-11.0)
[2018-02-01 06:12] LABS: Anion Gap 8 meq/L (5-15); Blood Urea Nitrogen 9 mg/dL (7-18); Calcium 8.4 mg/dL (8.5-10.1); Carbon Dioxide 22.8 meq/L (21.0-32.0); Chloride 112 meq/L (98-107); Glomerular Filtration Rate Greater Than 89 mL/min (>89); Glucose,Random 102 mg/dL (74-106); Potassium 3.7 meq/L (3.5-5.1); Sodium 143 meq/L (136-145)
[2018-02-01] MEDS ORDERED: Sodium Phosphate Inj 30 MMOL in Sodium Chlor 0.9% Inj 250 ML IV.SIG PRN (07:55)
[2018-02-01] MEDS ORDERED: Potassium Chlor 40 mEq Premix 40 MEQ/100 ML PIGGYBACK IV.SIG PRN ×2 (07:55)
[2018-02-01] MEDS ORDERED: Potassium Phosphate 500 MG Soluble Tablet PO PRN ×2 (07:55)
[2018-02-01] MEDS ORDERED: Magnesium Sulfate Inj 2 GM in Sodium Chlor 0.9% Inj 96 ML IV.SIG PRN (07:55)
[2018-02-01] MEDS ORDERED: Magnesium Oxide 400 MG Tablet PO PRN (07:55)
[2018-02-01] MEDS ORDERED: Potassium Chlor 20 mEq Premix 20 MEQ/100 ML PIGGYBACK IV.SIG PRN ×2 (07:55)
[2018-02-01] MEDS ORDERED: Potassium Chloride 25 MEQ Effervescent Tablet PO PRN (07:55)
[2018-02-01] MEDS ORDERED: Potassium Phosphate Inj 30 MMOL in Sodium Chlor 0.9% Inj 250 ML IV.SIG PRN (07:55)
[2018-02-01] MEDS ORDERED: Magnesium Sulfate Inj 4 GM in Sodium Chlor 0.9% Inj 92 ML IV.SIG PRN (07:55)
--- NOTE | 2018-02-01 08:04 | P.PNCC ---
Subjective Subjective Remarks/Hospital Course: 57-year-old unfortunate gentleman presents [place] emergency department as a stroke alert. His reports that they went to bed shortly after midnight. Approximately 10-15 minutes before calling EMS, she states that he seemed to be normal. She states that he had taken all the covers which resulted in a brief conversation between the 2 of them. He seemed okay at that time. Then, approximately 10 minutes later, she noticed that he seemed very restless. She noticed that he had altered mental status and had been incontinent of urine. He was trying to get off the bed and she called 911. EVAC reports right-sided paralysis, aphasia and urinary incontinence. On arrival to [place] emergency department the patient was aphasic. He is a little bit agitated. He has some right-sided facial weakness as well as weakness of the right upper and lower extremities. He was taken emergently for CT of the head which was negative for bleed. TPA infusion was then initiated. The case was discussed with Dr. Acuna. The CTA of the head and neck showed thrombosed left internal carotid artery and extending into the left middle cerebral artery. The patient was emergently taken to IR suite for possible intervention. 01/30 1330 hours: Left internal carotid artery stent placed with embolic filter. Fresh thrombus retrieved from the MCA distribution. Patient brought back to the [facility] on heparin drip where I met him on his arrival. Discussed with bedside nurse the need to clarify heparin order. It does not appear that a dissection was present here, rather thrombotic occlusion of a pre-existing atherosclerotic plaque. Nicardipine infusion for blood pressure control. Patient is restless and may well require Precedex for control during MRI later today. Complicating features include the presence of cocaine in the toxicology screen. By family admission the patient is a chronic alcoholic. We will need to deal with withdrawal symptomatology as well. Risk of gastrointestinal hemorrhage increased, will convert to twice daily Protonix. Follow airway closely. Frequent neurologic assessment required. 01/31: Patient's reports that the patient was "restless" overnight, no other overnight events. Speech therapy/ PT eval today. 02/01: Patient noted to be restless overnight, mildly hypertensive but not tachycardic or diaphoretic. CT scan shows somewhat worsening midline shift this morning (4 mm -> 5 mm). No other overnight events. Objective Vital Signs / I&O: Vital Signs 01/31/18 07:58 01/31/18 08:00 01/31/18 12:00 Temperature 98.2 F 98.8 F Pulse Rate 60 62 Respiratory Rate 26 H 22 Blood Pressure 142/81 H 166/93 H Pulse Oximetry 95 98 98 01/31/18 16:00 01/31/18 20:00 01/31/18 22:23 Temperature 99.3 F 99.3 F Pulse Rate 48 L 58 L Respiratory Rate 16 20 Blood Pressure 179/85 H 179/85 H Pulse Oximetry 97 96 98 02/01/18 00:00 02/01/18 04:00 02/01/18 05:00 Temperature 98.6 F 99.1 F Pulse Rate 61 51 L 51 L Respiratory Rate 20 20 Blood Pressure 169/85 H 175/92 H Pulse Oximetry 96 96 Intake & Output 01/31/18 02/01/18 02/01/18 18:59 06:59 18:59 Intake Total 1511.2 / 1511.2 1097 / 1097 Output Total 1400 / 1400 1100 / 1100 Balance 111.2 / 111.2 -3 / -3 Weight 81.7 kg Intake: IV 1511.2 / 1511.2 1047 / 1047 NS Inj 1,000 ML @ 100 mls/hr IV 1000 / 1000 .CONT .Q10H [facility] Rx#:[id number] Sodium Chloride 23.4% Inj 188 1047 / 1047 MEQ In NS Inj 1,000 ML @ 100 mls/hr IV.CONT .[id number] [facility] Rx# :[id number] MVI-12 Inj 10 ML Thiamine Inj 511.2 / 511.2 100 MG Folvite Inj 1 MG In NS Inj 500 ML @ 127.8 mls/hr IV. SIG Q24H [facility] Rx#:[id number] Oral 50 / 50 Output: Urine Amount (Catheter) 1400 / 1400 1100 / 1100 Indwelling Urethral Catheter 1400 / 1400 1100 / 1100 Other: Date of Last Bowel Movement 01/29/18 01/29/18 # Bowel Movements 0 0 Result Diagrams: 02/01/18 04:42 02/01/18 04:42 Objective Remarks: - Imaging Impressions Chest X-Ray 01/30/18 02:36 CONCLUSION: No evidence of acute cardiopulmonary disease. Head CT 01/30/18 02:36 CONCLUSION: Suspected acute thrombosis of the left middle cerebral artery. Stat CTA is recommended. Emergent transfer to the main hospital should be arranged. No perceptible parenchymal changes at this time. Report called to the emergency room physician Dr. Pinon at 2:52 AM. Report was called by [ ] Head CTA 01/30/18 02:52 CONCLUSION: Thrombosed left internal carotid artery and extending into the left middle cerebral artery. Neck CTA 01/30/18 03:19 CONCLUSION: 1. Acute appearing thrombosis of the left internal carotid artery beginning about 1 cm above the bifurcation and extending intracranially into the left middle cerebral artery. 2. Atherosclerosis of the bilateral carotid bulbs and proximal internal carotid arteries with low-grade and very short segment narrowing. 3. No acute vertebrobasilar abnormality. PHYSICAL EXAM: GEN: Well-nourished, well-developed, lying comfortably in bed HEENT: Right-sided facial droop, NCAT NECK: Trachea midline CARDIO: [place] to 50s, regular PULM: Clear to auscultation bilaterally ABD/GI: Soft, non-tender, non-distended EXT: Trace edema in RUE/ RLE SKIN: No rashes or lesions NEURO: Awake and alert, aphasic, motor strength 5/5 in left upper and lower extremities, 1/5 in right upper extremity, 3/5 right lower extremity. Flattening of right nasolabial fold. Pupils 3 mm and reactive. Assessment and Plan - Assessment and Plan Plan: Acute MCA CVA Acute thrombosis of left internal carotid artery superimposed on chronic atherosclerosis * S/P TPA administration >48 hours ago * S/P IR stent placement with thrombus retrieval * BP control * Neuro checks per unit protocol * PT and OT, speech therapy Cerebral edema * Monitor in the ICU for possible intubation or worsening mental status * Patient noted to have 5 mm midline shift on follow up CT scan this morning, remains at very high risk for malignant MCA syndrome. Exam somewhat improved this morning (spontaneous movement of RLE) * Continue 2% peripheral hypertonic saline, start salt tabs * Gentle diuresis * MRI/MRA showed large left cerebral infarct, no abnormalities of COW Hypertension * Off cardene drip, BP fairly labile over the past 24 hours (systolic 100s-170s) , reassess after diuresis * Vasotec, labetalol as needed Dyslipidemia * Pravastatin DVT GI prophylaxis * SCDs, SC heparin * Change IV protonix BID to pepcid PO qday (will continue stress ulcer prophylaxis in the setting of cerebral edema) * Mechanical soft/ thin liquid diet as per speech eval Positive toxicology screen * Cocaine Chronic daily alcohol abuse * MVI/ thiamine * Try to avoid benzodiazepines except for seizures so as not to cloud neuro exam * No signs of EtOH withdrawal presently D/C Jernigan today Overall impression: This patient remains stable but still critically ill. He is at high risk for acute neurological decompensation from cerebral edema. He needs continued ICU level of care. Counseling/ Coordination of Care: Total critical care time spent is 38 minutes. This includes examining the patient, gathering history from someone other than the patient (i.e. chart review), discussing the patient's care with other providers, managing the patient's blood pressure, ordering and interpreting radiologic studies, ordering and interpreting laboratory values, management of hyperosmolar therapy for cerebral edema, re-evaluation at frequent intervals, and documentation. Amount of time is separate from teaching, counseling the patient and/or family, and exclusive of procedures. Code Status: Full
--- NOTE | 2018-02-01 08:12 | P.PNNEU ---
Subjective Subjective Comments: No acute events Active Medications: Active Medications Acetaminophen (Tylenol) 650 mg PO Q6H PRN PRN Reason: PAIN 1-10 AND/OR FEVER >101F Al Hydroxide/Mg Hydroxide (Milk Of Chantelle Calderón) 30 ml PO Q12H PRN PRN Reason: Mild Constipation Albuterol (Duoneb Neb (Prn)) 1 ampul NEB Q2HR NEB PRN PRN Reason: WHEEZING Albuterol (Duoneb Neb (Prn)) 1 ampul NEB Q6HR NEB PRN PRN Reason: congestion, wheezing Bisacodyl (Dulcolax Supp) 10 mg RECTAL DAILY PRN PRN Reason: SEVERE CONSITIPATION Chlorhexidine Gluconate (Chlorhexidine 2% Cloth) 3 pack TOPICAL DAILY@0400 [facility] Stop: 02/05/18 03:59 Last Admin: 02/01/18 03:37 Dose: 3 pack Chlorhexidine Gluconate (Chlorhexidine 2% Cloth) 3 pack TOPICAL DAILY@0400 PRN PRN Reason: Extra cloth needed Stop: 02/05/18 03:59 Clopidogrel Bisulfate (Plavix) 75 mg PO DAILY [facility] Last Admin: 01/31/18 10:50 Dose: 75 mg Dextrose (D50w Vial) 50 ml IV.PUSH UNSCH PRN PRN Reason: PER HYPOGLYCEMIA PROTOCOL Enalaprilat (Vasotec Inj) 1.25 mg IV.PUSH Q4H PRN PRN Reason: For SBP > 220 or DBP > 120 Famotidine (Pepcid) 20 mg PO HS [facility] Glucagon (Glucagon Inj) 1 mg OTHER UNSCH PRN PRN Reason: for Hypoglycemia Protocol Sodium Chloride 188 meq/ (Sodium Chloride) 1,047 mls @ 100 mls/hr IV.CONT .[id number] [facility] Last Admin: 01/31/18 20:49 Dose: 100 mls/hr Magnesium Sulfate 4 gm/ Sodium (Chloride) 100 mls @ 50 mls/hr IV.SIG UNSCH PRN PRN Reason: For Magnesium 0.9 - 1.1 mg/dL Magnesium Sulfate 2 gm/ Sodium (Chloride) 100 mls @ 50 mls/hr IV.SIG UNSCH PRN PRN Reason: For Magnesium 1.2 - 1.6 mg/dL Potassium Chloride (Kcl 40 Meq Premix Inj) 40 meq in 100 mls @ 25 mls/hr IV.SIG Q2H PRN PRN Reason: For Potassium 2.8 - 3.2 mEq/L Potassium Chloride (Kcl 40 Meq Premix Inj) 40 meq in 100 mls @ 25 mls/hr IV.SIG UNSCH PRN PRN Reason: For Potassium 3.3 - 3.5 mEq/L Potassium Chloride (Kcl 20 Meq Premix Inj) 20 meq in 100 mls @ 50 mls/hr IV.SIG Q2H PRN PRN Reason: For Potassium 2.8 - 3.2 mEq/L Potassium Phosphate 30 mmol/ (Sodium Chloride) 260 mls @ 42 mls/hr IV.SIG UNSCH PRN PRN Reason: SEE LABEL COMMENTS Sodium Phosphate 30 mmol/ (Sodium Chloride) 260 mls @ 42 mls/hr IV.SIG UNSCH PRN PRN Reason: For Phosphorus < 2.5 mg/dL Potassium Chloride (Kcl 20 Meq Premix Inj) 20 meq in 100 mls @ 50 mls/hr IV.SIG Q2H PRN PRN Reason: For Potassium 3.3 - 3.5 mEq/L Insulin Aspart (Novolog Insulin Correctional Sugar Inj) 0 unit SQ [facility]; Protocol Last Admin: 01/31/18 20:33 Dose: Not Given Labetalol HCl (Trandate Inj) 10 mg IV.PUSH Q2H PRN PRN Reason: For SBP > 220 or DBP > 120 Lactulose (Lactulose Liq) 30 ml PO DAILY PRN PRN Reason: SEVERE CONSITIPATION Magnesium Oxide (Mag-Ox) 800 mg PO UNSCH PRN PRN Reason: For Magnesium 1.2 - 1.6 mg/dL Multivitamins (Theragran) 1 tab PO DAILY [facility] Ondansetron HCl (Zofran Inj) 4 mg IV.PUSH Q6H PRN PRN Reason: NAUSEA OR VOMITING Potassium Bicarb/Potassium Chloride (K-Lyte Cl Eff) 50 meq PO UNSCH PRN PRN Reason: For Potassium 3.3 - 3.5 mEq/L Potassium Phosphate (K-Phos Original) 2,000 mg PO Q4H PRN PRN Reason: Phosphorus Less Than 2.5 mg/dL Potassium Phosphate (K-Phos Original) 2,000 mg PO UNSCH PRN PRN Reason: SEE LABEL COMMENTS Pravastatin Sodium (Pravachol) 40 mg PO [facility] Last Admin: 01/31/18 20:32 Dose: 40 mg Senna/Docusate Sodium (Malou-Colace) 1 tab PO BID [facility] Last Admin: 01/31/18 20:32 Dose: 1 tab Sennosides (Senokot) 17.2 mg PO Q12H PRN PRN Reason: Moderate Constipation Sodium Chloride (Ns Flush) 2 ml IV.FLUSH BID [facility] Last Admin: 01/31/18 20:33 Dose: 2 ml Sodium Chloride (Ns Flush) 2 ml IV.FLUSH PRN PRN PRN Reason: FLUSH AFTER USING IV ACCESS Sodium Chloride (Sodium Chloride) 1 gm PO ONCE ONE Stop: 02/01/18 07:55 Allergies/Adverse Reactions: Allergies Allergy/AdvReac Type Severity Reaction Status Date / Time No Known Allergies Allergy Unverified 01/30/18 02:36 Review of Systems unobtainable due to mental condition Physical Exam Vital signs: Vital Signs 01/31/18 12:00 01/31/18 16:00 01/31/18 20:00 Temperature 98.8 F 99.3 F 99.3 F Pulse Rate 62 48 L 58 L Respiratory Rate 22 16 20 Blood Pressure 166/93 H 179/85 H 179/85 H Pulse Oximetry 98 97 96 01/31/18 22:23 02/01/18 00:00 02/01/18 04:00 Temperature 98.6 F 99.1 F Pulse Rate 61 51 L Respiratory Rate 20 20 Blood Pressure 169/85 H 175/92 H Pulse Oximetry 98 96 96 02/01/18 05:00 Temperature Pulse Rate 51 L Respiratory Rate Blood Pressure Pulse Oximetry Intake & Output 01/31/18 02/01/18 02/01/18 18:59 06:59 18:59 Intake Total 1511.2 / 1511.2 1097 / 1097 Output Total 1400 / 1400 1100 / 1100 Balance 111.2 / 111.2 -3 / -3 Weight 81.7 kg Intake: IV 1511.2 / 1511.2 1047 / 1047 NS Inj 1,000 ML @ 100 mls/hr IV 1000 / 1000 .CONT .Q10H [facility] Rx#:[id number] Sodium Chloride 23.4% Inj 188 1047 / 1047 MEQ In NS Inj 1,000 ML @ 100 mls/hr IV.CONT .[id number] [facility] Rx# :[id number] MVI-12 Inj 10 ML Thiamine Inj 511.2 / 511.2 100 MG Folvite Inj 1 MG In NS Inj 500 ML @ 127.8 mls/hr IV. SIG Q24H [facility] Rx#:[id number] Oral 50 / 50 Output: Urine Amount (Catheter) 1400 / 1400 1100 / 1100 Indwelling Urethral Catheter 1400 / 1400 1100 / 1100 Other: Date of Last Bowel Movement 01/29/18 01/29/18 # Bowel Movements 0 0 Narrative: GENERAL: in NAD, SKIN: Warm and dry. HEAD: Atraumatic. Normocephalic. EYES: Pupils equal and round. No scleral icterus. ENT: No nasal bleeding or discharge. Mucous membranes pink and moist. NECK: Trachea midline. No JVD. CARDIOVASCULAR: Regular rate and rhythm. RESPIRATORY: No accessory muscle use. GASTROINTESTINAL: Abdomen soft, non-tender, nondistended. MUSCULOSKELETAL: Extremities without clubbing, cyanosis, or edema. No obvious deformities. NEUROLOGICAL: More alert, global aphasia global aphasia, right lower facial weakness, right hemiplegia withdraws localized to the left side PSYCHIATRIC: Calm - Urinary Catheter Management Indwelling Urethral Catheter Cath placed during this visit: yes Reason for continuing: Hourly intake/output Insertion date: 01/30/18 Insertion time: 02:50 Objective Laboratory Results - last 24 hr 01/31/18 01/31/18 01/31/18 04:45 08:12 11:00 WBC RBC Hgb Hct MCV MCH MCHC RDW Plt Count MPV Sodium 144 Potassium Chloride Carbon Dioxide Anion Gap BUN Creatinine Estimated GFR POC Glucose 132 H Random Glucose Hemoglobin A1c 5.9 Osmolality 291 Calcium 01/31/18 01/31/18 01/31/18 12:22 16:10 17:38 WBC RBC Hgb Hct MCV MCH MCHC RDW Plt Count MPV Sodium 144 Potassium Chloride Carbon Dioxide Anion Gap BUN Creatinine Estimated GFR POC Glucose 125 H 107 Random Glucose Hemoglobin A1c Osmolality 292 Calcium 01/31/18 02/01/18 02/01/18 20:29 04:42 04:42 WBC 9.4 RBC 3.63 L Hgb 12.6 L Hct 35.8 L MCV 98.5 MCH 34.7 H MCHC 35.2 RDW 12.4 Plt Count 197 MPV 8.1 Sodium Potassium Chloride Carbon Dioxide Anion Gap BUN Creatinine Estimated GFR POC Glucose 113 H Random Glucose Hemoglobin A1c Osmolality 296 H Calcium 02/01/18 04:42 WBC RBC Hgb Hct MCV MCH MCHC RDW Plt Count MPV Sodium 143 Potassium 3.7 Chloride 112 H Carbon Dioxide 22.8 Anion Gap 8 BUN 9 Creatinine 0.75 Estimated GFR Greater than 89 POC Glucose Random Glucose 102 Hemoglobin A1c Osmolality Calcium 8.4 L Review/Management - Diagnosis (1) Acute ischemic left middle cerebral artery (MCA) stroke Code(s): I63.512 - Cerebral infarction due to unspecified occlusion or stenosis of left middle cerebral artery Status: Acute Current Visit: Yes (2) Left carotid stenosis Code(s): I65.22 - Occlusion and stenosis of left carotid artery Status: Acute Current Visit: Yes (3) Hypertension Code(s): I10 - Essential (primary) hypertension Status: Acute Current Visit : Yes (4) Tobacco use Code(s): Z72.0 - Tobacco use Status: Acute Current Visit: Yes - Review/Management Plan: Left high-grade stenosis/dissection status post IV TPA, status post stent placement Risk factors include chronic tobacco use and hypertension CT brain reviewed, overall stable minimal increase in edema On ICP treatment Recommendations Neuro stable On hypertonic saline Appreciate critical care Therapy Telemetry Patient is critically ill needs to be in the ICU Discussed with KEISHA sim
[2018-02-01] MEDS ORDERED: Sodium Chloride 1 GM Tablet PO ONE (08:15)
[2018-02-01] MEDS: Insulin NovoLOG Aspart Correctional Sugar Inj SQ SCH (09:01)
[2018-02-01] MEDS: Heparin - SQ 10,000 UNITS/ML Vial SQ SCH ×3 (09:06→21:05)
[2018-02-01] MEDS: Sodium Chloride 23.4% Inj 188 MEQ in Sod Chloride 0.9% Inj 1,000 ML IV.CONT SCH ×2 (09:06→20:48)
[2018-02-01] MEDS: Senna/Docusate Sodium 8.6/50 MG Tablet PO SCH ×2 (09:08→20:26)
--- NOTE | 2018-02-01 13:04 | P.PNNS ---
Subjective Interval history: Pt awake. Expressive and receptive aphasia. He will follow sometimes by mimicking. He has a right hemiplegia. <Johnny Hugo - Last Filed: 02/01/18 12:54> Physical Exam Vital signs: Vital Signs 01/31/18 16:00 01/31/18 20:00 01/31/18 22:23 Temperature 99.3 F 99.3 F Pulse Rate 48 L 58 L Respiratory Rate 16 20 Blood Pressure 179/85 H 179/85 H Pulse Oximetry 97 96 98 02/01/18 00:00 02/01/18 04:00 02/01/18 05:00 Temperature 98.6 F 99.1 F Pulse Rate 61 51 L 51 L Respiratory Rate 20 20 Blood Pressure 169/85 H 175/92 H Pulse Oximetry 96 96 02/01/18 08:00 02/01/18 09:37 02/01/18 12:00 Temperature 97.9 F 99.1 F Pulse Rate 50 L 60 Respiratory Rate 18 19 Blood Pressure 186/96 H 151/81 H Pulse Oximetry 97 98 95 Intake & Output 01/31/18 02/01/18 02/01/18 18:59 06:59 18:59 Intake Total 1511.2 / 1511.2 1097 / 1097 1000 / 1000 Output Total 1400 / 1400 1100 / 1100 Balance 111.2 / 111.2 -3 / -3 1000 / 1000 Weight 81.7 kg Intake: IV 1511.2 / 1511.2 1047 / 1047 1000 / 1000 NS Inj 1,000 ML @ 100 mls/hr IV 1000 / 1000 .CONT .Q10H [facility] Rx#:[id number] Sodium Chloride 23.4% Inj 188 1047 / 1047 1000 / 1000 MEQ In NS Inj 1,000 ML @ 100 mls/hr IV.CONT .[id number] [facility] Rx# :[id number] MVI-12 Inj 10 ML Thiamine Inj 511.2 / 511.2 100 MG Folvite Inj 1 MG In NS Inj 500 ML @ 127.8 mls/hr IV. SIG Q24H JUAN Rx#:[id number] Oral 50 / 50 Output: Urine Amount (Catheter) 1400 / 1400 1100 / 1100 Indwelling Urethral Catheter 1400 / 1400 1100 / 1100 Other: Date of Last Bowel Movement 01/29/18 01/29/18 01/29/18 # Bowel Movements 0 0 - Constitutional average body habitus Comments: Pt awake but not able to verbalize. - Routine HEENT Exam Head: Present: normocephalic, atraumatic Eye: Present: PERRL (Pupils 3mm bilaterally.). Absent: conjunctival icterus ENT: Present: oropharynx clear - Routine Neck Exam Present: trachea midline - Routine Respiratory Exam Present: CTA bilaterally. Absent: respiratory distress, rhonchi, wheezes - Routine Cardiovascular Exam Present: RRR, S1, S2. Absent: murmur - Routine Abdominal Exam Present: soft, normoactive bowel sounds. Absent: distended, firm - Routine Skin Exam Absent: cyanosis, erythema - Routine Neurological Exam Present: alert, motor deficit (Right hemiplegia. Moves left side well.). Absent: normal speech (Expressive and receptive aphasia.) - Routine Psychiatric Exam Present: unable to assess - Urinary Catheter Management Indwelling Urethral Catheter Cath placed during this visit: yes Reason for continuing: Hourly intake/output Insertion date: 01/30/18 Insertion time: 02:50 <Johnny Hugo - Last Filed: 02/01/18 12:54> Vital signs: Vital Signs 01/31/18 16:00 01/31/18 20:00 01/31/18 22:23 Temperature 99.3 F 99.3 F Pulse Rate 48 L 58 L Respiratory Rate 16 20 Blood Pressure 179/85 H 179/85 H Pulse Oximetry 97 96 98 02/01/18 00:00 02/01/18 04:00 02/01/18 05:00 Temperature 98.6 F 99.1 F Pulse Rate 61 51 L 51 L Respiratory Rate 20 20 Blood Pressure 169/85 H 175/92 H Pulse Oximetry 96 96 02/01/18 08:00 02/01/18 09:37 02/01/18 12:00 Temperature 97.9 F 99.1 F Pulse Rate 50 L 60 Respiratory Rate 18 19 Blood Pressure 186/96 H 151/81 H Pulse Oximetry 97 98 95 Intake & Output 01/31/18 02/01/18 02/01/18 18:59 06:59 18:59 Intake Total 1511.2 / 1511.2 1097 / 1097 1000 / 1000 Output Total 1400 / 1400 1100 / 1100 Balance 111.2 / 111.2 -3 / -3 1000 / 1000 Weight 81.7 kg Intake: IV 1511.2 / 1511.2 1047 / 1047 1000 / 1000 NS Inj 1,000 ML @ 100 mls/hr IV 1000 / 1000 .CONT .Q10H JU[facility] Rx#:[id number] Sodium Chloride 23.4% Inj 188 1047 / 1047 1000 / 1000 MEQ In NS Inj 1,000 ML @ 100 mls/hr IV.CONT .[id number] [facility] Rx# :[id number] MVI-12 Inj 10 ML Thiamine Inj 511.2 / 511.2 100 MG Folvite Inj 1 MG In NS Inj 500 ML @ 127.8 mls/hr IV. SIG Q24H JUAN Rx#:[id number] Oral 50 / 50 Output: Urine Amount (Catheter) 1400 / 1400 1100 / 1100 Indwelling Urethral Catheter 1400 / 1400 1100 / 1100 Other: Date of Last Bowel Movement 01/29/18 01/29/18 01/29/18 # Bowel Movements 0 0 - Urinary Catheter Management Indwelling Urethral Catheter Cath placed during this visit: no <Jem Neville - Last Filed: 02/01/18 14:41> Assessment and Plan - Assessment (1) Acute ischemic stroke Code(s): I63.9 - Cerebral infarction, unspecified Status: Acute (2) Acute ischemic left middle cerebral artery (MCA) stroke Code(s): I63.512 - Cerebral infarction due to unspecified occlusion or stenosis of left middle cerebral artery Status: Acute (3) Left carotid stenosis Code(s): I65.22 - Occlusion and stenosis of left carotid artery Status: Acute (4) Hypertension Code(s): I10 - Essential (primary) hypertension Status: Acute (5) Tobacco use Code(s): Z72.0 - Tobacco use Status: Acute - Plan 57-year-old gentleman with a left MCA area stroke with a mild mass-effect and midline shift status post thrombectomy for left ICA and MCA occlusion with stent placement. Follow up CT from today revealed some increase in mass effect and slight increased midline shift. P: Continue with close monitoring in the intensive care unit. If his neurologic condition deteriorates and he is unable to protect his airway then he will be intubated for airway controlled and ICP control measures and contemplation of left decompressive hemicraniectomy also will be considered. Updated family at bedside and nursing staff. <Johnny Hugo - Last Filed: 02/01/18 12:54> - Assessment (1) Acute ischemic left middle cerebral artery (MCA) stroke Code(s): I63.512 - Cerebral infarction due to unspecified occlusion or stenosis of left middle cerebral artery Status: Acute (2) Left carotid stenosis Code(s): I65.22 - Occlusion and stenosis of left carotid artery Status: Acute - Attending Attestation The exam, history, and the medical decision-making described in the above note were completed with the assistance of the mid-level provider. I reviewed and agree with the findings presented. I attest that I had a [id number] encounter with the patient on the same day, and personally performed and documented my assessment and findings in the medical record. Overall stable neurologic examination and follow-up CT scan of the head this morning. Continue with observation. Updated at bedside and discussed with nursing staff. <Jem Neville - Last Filed: 02/01/18 14:41>
[2018-02-01] MEDS: Famotidine 20 MG Tablet PO SCH (20:26)
[2018-02-02 05:28] LABS: Hemoglobin 11.4 gm/dL (13.0-17.0); Mean Corpuscular HGB Conc 34.4 % (32.0-36.0); Mean Corpuscular Hemoglobin 34.2 pg (27.0-34.0); Mean Corpuscular Volume 99.5 fL (80.0-100.0); Mean Platelet Volume 7.9 fL (7.0-11.0); Platelet Count 182 th/mm3 (150-450); Red Blood Count 3.32 mil/mm3 (4.50-5.90); Red Cell Distribution Width 12.6 % (11.6-17.2)
[2018-02-02] MEDS: Chlorhexidine Gluconate 2% 1 Pack (2 Cloths) TOPICAL SCH (05:46)
[2018-02-02 05:55] LABS: Anion Gap 8 meq/L (5-15); Blood Urea Nitrogen 12 mg/dL (7-18); Calcium 7.9 mg/dL (8.5-10.1); Carbon Dioxide 23.1 meq/L (21.0-32.0); Chloride 113 meq/L (98-107); Glomerular Filtration Rate Greater Than 89 mL/min (>89); Glucose,Random 97 mg/dL (74-106); Potassium 3.5 meq/L (3.5-5.1); Sodium 144 meq/L (136-145)
[2018-02-02] MEDS: Heparin - SQ 10,000 UNITS/ML Vial SQ SCH ×3 (05:57→21:12)
[2018-02-02] MEDS: Senna/Docusate Sodium 8.6/50 MG Tablet PO SCH ×2 (09:34→21:12)
[2018-02-02] MEDS: Sodium Chloride 23.4% Inj 188 MEQ in Sod Chloride 0.9% Inj 1,000 ML IV.CONT SCH ×2 (09:35→22:51)
--- NOTE | 2018-02-02 17:54 | P.PNNEU ---
Subjective Subjective Comments: No acute events, at bedside Active Medications: Active Medications Acetaminophen (Tylenol) 650 mg PO Q6H PRN PRN Reason: PAIN 1-10 AND/OR FEVER >101F Al Hydroxide/Mg Hydroxide (Milk Of Chantelle Calderón) 30 ml PO Q12H PRN PRN Reason: Mild Constipation Albuterol (Duoneb Neb (Prn)) 1 ampul NEB Q2HR NEB PRN PRN Reason: WHEEZING Albuterol (Duoneb Neb (Prn)) 1 ampul NEB Q6HR NEB PRN PRN Reason: congestion, wheezing Bisacodyl (Dulcolax Supp) 10 mg RECTAL DAILY PRN PRN Reason: SEVERE CONSITIPATION Chlorhexidine Gluconate (Chlorhexidine 2% Cloth) 3 pack TOPICAL DAILY@0400 [facility] Stop: 02/05/18 03:59 Last Admin: 02/02/18 05:46 Dose: 3 pack Chlorhexidine Gluconate (Chlorhexidine 2% Cloth) 3 pack TOPICAL DAILY@0400 PRN PRN Reason: Extra cloth needed Stop: 02/05/18 03:59 Clopidogrel Bisulfate (Plavix) 75 mg PO DAILY [facility] Last Admin: 02/02/18 09:34 Dose: 75 mg Dextrose (D50w Vial) 50 ml IV.PUSH UNSCH PRN PRN Reason: PER HYPOGLYCEMIA PROTOCOL Enalaprilat (Vasotec Inj) 1.25 mg IV.PUSH Q4H PRN PRN Reason: For SBP > 220 or DBP > 120 Last Admin: 02/02/18 00:16 Dose: 1.25 mg Famotidine (Pepcid) 20 mg PO HS [facility] Last Admin: 02/01/18 20:26 Dose: 20 mg Fluticasone Propionate (Flonase Nasal [place]) 2 spray NASAL DAILY [facility] Last Admin: 02/02/18 09:35 Dose: 2 spray Glucagon (Glucagon Inj) 1 mg OTHER UNSCH PRN PRN Reason: for Hypoglycemia Protocol Heparin Sodium (Porcine) (Heparin Inj) 5,000 units SQ Q8HR [facility] Last Admin: 02/02/18 13:31 Dose: 5,000 units Sodium Chloride 188 meq/ (Sodium Chloride) 1,047 mls @ 40 mls/hr IV.CONT .Q24H [facility] Last Admin: 02/02/18 09:35 Dose: 100 mls/hr Magnesium Sulfate 4 gm/ Sodium (Chloride) 100 mls @ 50 mls/hr IV.SIG UNSCH PRN PRN Reason: For Magnesium 0.9 - 1.1 mg/dL Magnesium Sulfate 2 gm/ Sodium (Chloride) 100 mls @ 50 mls/hr IV.SIG UNSCH PRN PRN Reason: For Magnesium 1.2 - 1.6 mg/dL Potassium Chloride (Kcl 40 Meq Premix Inj) 40 meq in 100 mls @ 25 mls/hr IV.SIG Q2H PRN PRN Reason: For Potassium 2.8 - 3.2 mEq/L Potassium Chloride (Kcl 40 Meq Premix Inj) 40 meq in 100 mls @ 25 mls/hr IV.SIG UNSCH PRN PRN Reason: For Potassium 3.3 - 3.5 mEq/L Potassium Chloride (Kcl 20 Meq Premix Inj) 20 meq in 100 mls @ 50 mls/hr IV.SIG Q2H PRN PRN Reason: For Potassium 2.8 - 3.2 mEq/L Potassium Phosphate 30 mmol/ (Sodium Chloride) 260 mls @ 42 mls/hr IV.SIG UNSCH PRN PRN Reason: SEE LABEL COMMENTS Sodium Phosphate 30 mmol/ (Sodium Chloride) 260 mls @ 42 mls/hr IV.SIG UNSCH PRN PRN Reason: For Phosphorus < 2.5 mg/dL Potassium Chloride (Kcl 20 Meq Premix Inj) 20 meq in 100 mls @ 50 mls/hr IV.SIG Q2H PRN PRN Reason: For Potassium 3.3 - 3.5 mEq/L Labetalol HCl (Trandate Inj) 10 mg IV.PUSH Q2H PRN PRN Reason: For SBP > 220 or DBP > 120 Lactulose (Lactulose Liq) 30 ml PO DAILY PRN PRN Reason: SEVERE CONSITIPATION Magnesium Oxide (Mag-Ox) 800 mg PO UNSCH PRN PRN Reason: For Magnesium 1.2 - 1.6 mg/dL Multivitamins (Theragran) 1 tab PO DAILY JUAN Last Admin: 02/02/18 09:34 Dose: 1 tab Ondansetron HCl (Zofran Inj) 4 mg IV.PUSH Q6H PRN PRN Reason: NAUSEA OR VOMITING Potassium Bicarb/Potassium Chloride (K-Lyte Cl Eff) 50 meq PO UNSCH PRN PRN Reason: For Potassium 3.3 - 3.5 mEq/L Last Admin: 02/02/18 13:32 Dose: 50 meq Potassium Phosphate (K-Phos Original) 2,000 mg PO Q4H PRN PRN Reason: Phosphorus Less Than 2.5 mg/dL Potassium Phosphate (K-Phos Original) 2,000 mg PO UNSCH PRN PRN Reason: SEE LABEL COMMENTS Pravastatin Sodium (Pravachol) 40 mg PO HS [facility] Last Admin: 02/01/18 20:26 Dose: 40 mg Senna/Docusate Sodium (Malou-Colace) 1 tab PO BID [facility] Last Admin: 02/02/18 09:34 Dose: 1 tab Sennosides (Senokot) 17.2 mg PO Q12H PRN PRN Reason: Moderate Constipation Sodium Chloride (Ns Flush) 2 ml IV.FLUSH BID [facility] Last Admin: 02/02/18 09:35 Dose: 2 ml Sodium Chloride (Ns Flush) 2 ml IV.FLUSH PRN PRN PRN Reason: FLUSH AFTER USING IV ACCESS Allergies/Adverse Reactions: Allergies Allergy/AdvReac Type Severity Reaction Status Date / Time No Known Allergies Allergy Unverified 01/30/18 02:36 Review of Systems All other systems reviewed negative except as stated in HPI Physical Exam Vital signs: Vital Signs 02/01/18 18:00 02/01/18 20:00 02/01/18 20:15 Temperature 99.2 F Pulse Rate 66 58 L Respiratory Rate 20 Blood Pressure Pulse Oximetry 95 96 02/02/18 00:00 02/02/18 04:00 02/02/18 07:27 Temperature 98.6 F 98.5 F Pulse Rate 46 L 56 L Respiratory Rate 16 20 18 Blood Pressure 201/94 H 200/100 H Pulse Oximetry 97 95 96 02/02/18 07:41 02/02/18 09:30 02/02/18 12:00 Temperature 97.9 F 97.6 F Pulse Rate 49 L 51 L Respiratory Rate 18 18 Blood Pressure 192/90 H 191/90 H Pulse Oximetry 96 97 98 02/02/18 16:00 Temperature Pulse Rate Respiratory Rate 18 Blood Pressure Pulse Oximetry Intake & Output 02/01/18 02/02/18 02/02/18 18:59 06:59 18:59 Intake Total 1500 / 1500 1047 / 1047 2047 / 2047 Output Total 2675 / 2675 800 / 800 Balance -1175 / -1175 247 / 247 2046 Weight 78.5 kg Intake: IV 1000 / 1000 1047 / 1047 2046 Sodium Chloride 23.4% Inj 188 1000 / 1000 1047 / 1047 1047 / 1047 MEQ In NS Inj 1,000 ML @ 100 mls/hr IV.CONT .[id number] JUAN Rx# :[id number] Oral 500 / 500 Output: Stool 0 / 0 Urine Amount (Catheter) 267 / 2675 800 / 800 Condom 800 / 800 Indwelling Urethral Catheter 2650 / 2650 Other: Date of Last Bowel Movement 01/29/18 01/29/18 01/29/18 # Bowel Movements 0 Narrative: GENERAL: in NAD, SKIN: Warm and dry. HEAD: Atraumatic. Normocephalic. EYES: Pupils equal and round. No scleral icterus. ENT: No nasal bleeding or discharge. Mucous membranes pink and moist. NECK: Trachea midline. No JVD. CARDIOVASCULAR: Regular rate and rhythm. RESPIRATORY: No accessory muscle use. GASTROINTESTINAL: Abdomen soft, non-tender, nondistended. MUSCULOSKELETAL: Extremities without clubbing, cyanosis, or edema. No obvious deformities. NEUROLOGICAL: More alert, global aphasia, tries to open close eyes when being asked although not consistent right lower facial weakness, right hemiplegia withdraws localized to the left side PSYCHIATRIC: Calm - Constitutional no acute distress - Routine HEENT Exam Head: Present: normocephalic - Urinary Catheter Management Indwelling Urethral Catheter Cath placed during this visit: yes, but has since been removed by the nurse Reason for continuing: Decision to DC catheter Insertion date: 01/30/18 Insertion time: 02:50 Removal date: 02/01/18 Removal time: 16:30 Condom Cath placed during this visit: yes Reason for continuing: Not indwelling catheter Insertion date: 02/01/18 Insertion time: 16:45 Objective Laboratory Results - last 24 hr 02/02/18 02/02/18 02/02/18 05:03 05:03 05:03 WBC 8.0 RBC 3.32 L Hgb 11.4 L Hct 33.0 L MCV 99.5 MCH 34.2 H MCHC 34.4 RDW 12.6 Plt Count 182 MPV 7.9 Sodium 144 Potassium 3.5 Chloride 113 H Carbon Dioxide 23.1 Anion Gap 8 BUN 12 Creatinine 0.81 Estimated GFR Greater than 89 Random Glucose 97 Osmolality 297 H Calcium 7.9 L Review/Management - Diagnosis (1) Acute ischemic left middle cerebral artery (MCA) stroke Code(s): I63.512 - Cerebral infarction due to unspecified occlusion or stenosis of left middle cerebral artery Status: Acute Current Visit: Yes (2) Left carotid stenosis Code(s): I65.22 - Occlusion and stenosis of left carotid artery Status: Acute Current Visit: Yes (3) Hypertension Code(s): I10 - Essential (primary) hypertension Status: Acute Current Visit : Yes (4) Tobacco use Code(s): Z72.0 - Tobacco use Status: Acute Current Visit: Yes - Review/Management Plan: Left high-grade stenosis/dissection status post IV TPA, status post stent placement, day 3 Risk factors include chronic tobacco use and hypertension CT brain reviewed, overall stable minimal increase in edema On Plavix Recommendations Neuro stable. More alert Consider floor when cleared by critical care and neurosurgery; appreciate their care Therapy Telemetry Patient is critically ill needs to be in the ICU Discussed with KEISHA sim
--- NOTE | 2018-02-02 17:55 | P.PNCC ---
Subjective Subjective Remarks/Hospital Course: 57-year-old unfortunate gentleman presents [place] emergency department as a stroke alert. His reports that they went to bed shortly after midnight. Approximately 10-15 minutes before calling EMS, she states that he seemed to be normal. She states that he had taken all the covers which resulted in a brief conversation between the 2 of them. He seemed okay at that time. Then, approximately 10 minutes later, she noticed that he seemed very restless. She noticed that he had altered mental status and had been incontinent of urine. He was trying to get off the bed and she called 911. EVAC reports right-sided paralysis, aphasia and urinary incontinence. On arrival to [place] emergency department the patient was aphasic. He is a little bit agitated. He has some right-sided facial weakness as well as weakness of the right upper and lower extremities. He was taken emergently for CT of the head which was negative for bleed. TPA infusion was then initiated. The case was discussed with Dr. Acuna. The CTA of the head and neck showed thrombosed left internal carotid artery and extending into the left middle cerebral artery. The patient was emergently taken to IR suite for possible intervention. 01/30 1330 hours: Left internal carotid artery stent placed with embolic filter. Fresh thrombus retrieved from the MCA distribution. Patient brought back to the [facility] on heparin drip where I met him on his arrival. Discussed with bedside nurse the need to clarify heparin order. It does not appear that a dissection was present here, rather thrombotic occlusion of a pre-existing atherosclerotic plaque. Nicardipine infusion for blood pressure control. Patient is restless and may well require Precedex for control during MRI later today. Complicating features include the presence of cocaine in the toxicology screen. By family admission the patient is a chronic alcoholic. We will need to deal with withdrawal symptomatology as well. Risk of gastrointestinal hemorrhage increased, will convert to twice daily Protonix. Follow airway closely. Frequent neurologic assessment required. 01/31: Patient's reports that the patient was "restless" overnight, no other overnight events. Speech therapy/ PT eval today. 02/01: Patient noted to be restless overnight, mildly hypertensive but not tachycardic or diaphoretic. CT scan shows somewhat worsening midline shift this morning (4 mm -> 5 mm). No other overnight events. 09/26: Patient having good day today with short walk in the hallway and standing on his own. He appears more alert although he gets very frustrated with his expressive aphasia. Objective Vital Signs / I&O: Vital Signs 02/01/18 18:00 02/01/18 20:00 02/01/18 20:15 Temperature 99.2 F Pulse Rate 66 58 L Respiratory Rate 20 Blood Pressure Pulse Oximetry 95 96 02/02/18 00:00 02/02/18 04:00 02/02/18 07:27 Temperature 98.6 F 98.5 F Pulse Rate 46 L 56 L Respiratory Rate 16 20 18 Blood Pressure 201/94 H 200/100 H Pulse Oximetry 97 95 96 02/02/18 07:41 02/02/18 09:30 02/02/18 12:00 Temperature 97.9 F 97.6 F Pulse Rate 49 L 51 L Respiratory Rate 18 18 Blood Pressure 192/90 H 191/90 H Pulse Oximetry 96 97 98 02/02/18 16:00 Temperature Pulse Rate Respiratory Rate 18 Blood Pressure Pulse Oximetry Intake & Output 02/01/18 02/02/18 02/02/18 18:59 06:59 18:59 Intake Total 1500 / 1500 1047 / 1047 2046 / 7 Output Total 2675 / 2675 800 / 800 Balance -1175 / -1175 247 / 247 2046 / 2046 Weight 78.5 kg Intake: IV 1000 / 1000 1047 / 1047 2046 / 2047 Sodium Chloride 23.4% Inj 188 1000 / 1000 1047 / 1047 1047 / 1047 MEQ In NS Inj 1,000 ML @ 100 mls/hr IV.CONT .[id number] Rx# :[id number] Oral 500 / 500 Output: Stool 0 / 0 Urine Amount (Catheter) 2675 / 2675 800 / 800 Condom 800 / 800 Indwelling Urethral Catheter 2650 / 2650 Other: Date of Last Bowel Movement 01/29/18 01/29/18 01/29/18 # Bowel Movements 0 Result Diagrams: 02/02/18 05:03 02/02/18 05:03 Objective Remarks: - Imaging Impressions Chest X-Ray 01/30/18 02:36 CONCLUSION: No evidence of acute cardiopulmonary disease. Head CT 01/30/18 02:36 CONCLUSION: Suspected acute thrombosis of the left middle cerebral artery. Stat CTA is recommended. Emergent transfer to the main hospital should be arranged. No perceptible parenchymal changes at this time. Report called to the emergency room physician Dr. Pinon at 2:52 AM. Report was called by [ ] Head CTA 01/30/18 02:52 CONCLUSION: Thrombosed left internal carotid artery and extending into the left middle cerebral artery. Neck CTA 01/30/18 03:19 CONCLUSION: 1. Acute appearing thrombosis of the left internal carotid artery beginning about 1 cm above the bifurcation and extending intracranially into the left middle cerebral artery. 2. Atherosclerosis of the bilateral carotid bulbs and proximal internal carotid arteries with low-grade and very short segment narrowing. 3. No acute vertebrobasilar abnormality. PHYSICAL EXAM: GEN: Well-nourished, well-developed, lying comfortably in bed HEENT: Right-sided facial droop, NCAT NECK: Trachea midline, airway widely patent CARDIO: [place] to 50s, regular no JVD PULM: Clear to auscultation bilaterally ABD/GI: Soft, non-tender, non-distended, no guarding, bowel sounds active. EXT: Trace edema in RUE/ RLE, warm and well-perfused SKIN: No rashes or lesions NEURO: Awake and alert, aphasic, motor strength 5/5 in left upper and lower extremities, 1/5 in right upper extremity, 3/5 right lower extremity. Flattening of right nasolabial fold. Pupils 2 mm and reactive. Assessment and Plan - Assessment and Plan Plan: Acute MCA CVA Acute thrombosis of left internal carotid artery superimposed on chronic atherosclerosis * S/P TPA administration >48 hours ago * S/P IR stent placement with thrombus retrieval * BP control * Neuro checks per unit protocol * PT and OT, speech therapy Cerebral edema * Monitor in the ICU for possible intubation or worsening mental status * Patient noted to have 5 mm midline shift on follow up CT scan this morning, remains at very high risk for malignant MCA syndrome. Exam somewhat improved this morning (spontaneous movement of RLE) * Continue 2% peripheral hypertonic saline, start salt tabs * Gentle diuresis * MRI/MRA showed large left cerebral infarct, no abnormalities of COW Hypertension * Off cardene drip, BP fairly labile over the past 24 hours (systolic 100s-170s) , reassess after diuresis * Vasotec, labetalol as needed Dyslipidemia * Pravastatin DVT GI prophylaxis * SCDs, SC heparin * Change IV protonix BID to pepcid PO qday (will continue stress ulcer prophylaxis in the setting of cerebral edema) * Mechanical soft/ thin liquid diet as per speech eval Positive toxicology screen * Cocaine Chronic daily alcohol abuse * MVI/ thiamine * Try to avoid benzodiazepines except for seizures so as not to cloud neuro exam * No signs of EtOH withdrawal presently D/C Del[place] today Overall impression: This patient remains stable but still critically ill. He is at high risk for acute neurological decompensation from cerebral edema. He progressed well today through physical therapy and occupational therapy.
--- NOTE | 2018-02-02 18:32 | P.PNNS ---
Subjective Interval history: 57-year-old gentleman with a left hemisphere stroke from occluded left ICA and thrombosed MCA status post thrombolysis and stent placement. He is more alert today although remains severely aphasic right hemiplegia. Protecting airway well and participated with physical therapy. Physical Exam Vital signs: Vital Signs 02/01/18 20:00 02/01/18 20:15 02/02/18 00:00 Temperature 99.2 F 98.6 F Pulse Rate 58 L 46 L Respiratory Rate 20 16 Blood Pressure 201/94 H Pulse Oximetry 95 96 97 02/02/18 04:00 02/02/18 07:27 02/02/18 07:41 Temperature 98.5 F 97.9 F Pulse Rate 56 L 49 L Respiratory Rate 20 18 18 Blood Pressure 200/100 H 192/90 H Pulse Oximetry 95 96 96 02/02/18 09:30 02/02/18 12:00 02/02/18 16:00 Temperature 97.6 F Pulse Rate 51 L Respiratory Rate 18 18 Blood Pressure 191/90 H Pulse Oximetry 97 98 Intake & Output 02/01/18 02/02/18 02/02/18 18:59 06:59 18:59 Intake Total 1500 / 1500 1047 / 1047 20467 Output Total 2675 / 2675 800 / 800 Balance -1175 / -1175 247 / 247 2046 Weight 78.5 kg Intake: IV 1000 / 1000 1047 / 1047 2046 / 7 Sodium Chloride 23.4% Inj 188 1000 / 1000 1047 / 1047 1047 / 1047 MEQ In NS Inj 1,000 ML @ 100 mls/hr IV.CONT .[id number] [facility] Rx# :[id number] Oral 500 / 500 Output: Stool 0 / 0 Urine Amount (Catheter) 2675 / 2675 800 / 800 Condom 800 / 800 Indwelling Urethral Catheter 2650 / 2650 Other: Date of Last Bowel Movement 01/29/18 01/29/18 01/29/18 # Bowel Movements 0 - Constitutional no acute distress - Routine HEENT Exam Head: Present: normocephalic, atraumatic Eye: Present: EOMI ENT: Present: mucous membranes moist, oropharynx clear - Routine Neck Exam Present: supple, full ROM - Routine Respiratory Exam Present: CTA bilaterally - Routine Cardiovascular Exam Present: RRR, S1, S2 - Routine Abdominal Exam Present: soft, normoactive bowel sounds - Routine Extremities Exam Present: pulses intact, normal capillary refill - Routine Skin Exam Present: intact - Routine Neurological Exam Present: alert, motor deficit (Right hemiplegia with right facial droop and severe aphasia or where he does not verbalize or follow commands), facial asymmetry - Additional findings Additional findings: Impressions Head CT 02/01/18 06:00 CONCLUSION: Involving left MCA distribution infarcts again seen. No evidence of acute hemorrhage. 5 mm [id number] midline shift. . - Urinary Catheter Management Indwelling Urethral Catheter Cath placed during this visit: yes, but has since been removed by the nurse Reason for continuing: Decision to DC catheter Insertion date: 01/30/18 Insertion time: 02:50 Removal date: 02/01/18 Removal time: 16:30 Condom Cath placed during this visit: yes Reason for continuing: Not indwelling catheter Insertion date: 02/01/18 Insertion time: 16:45 Assessment and Plan - Assessment (1) Acute ischemic left middle cerebral artery (MCA) stroke Code(s): I63.512 - Cerebral infarction due to unspecified occlusion or stenosis of left middle cerebral artery Status: Acute (2) Left carotid stenosis Code(s): I65.22 - Occlusion and stenosis of left carotid artery Status: Acute - Plan 57-year-old gentleman with a left MCA area stroke with a mild mass-effect and midline shift status post thrombectomy for left ICA and MCA occlusion with stent placement. More alert today although remains severely aphasic with the right hemiplegia. Continue with close monitoring in the intensive care unit. Speech therapy, physical therapy and occupational therapy rehabilitation. Updated at bedside and discussed with nursing staff.
[2018-02-02] MEDS: Famotidine 20 MG Tablet PO SCH (21:12)
[2018-02-03] MEDS: Chlorhexidine Gluconate 2% 1 Pack (2 Cloths) TOPICAL SCH (03:36)
[2018-02-03] MEDS: Heparin - SQ 10,000 UNITS/ML Vial SQ SCH ×3 (06:12→21:16)
[2018-02-03 07:05] LABS: Anion Gap 8 meq/L (5-15); Blood Urea Nitrogen 11 mg/dL (7-18); Carbon Dioxide 22.5 meq/L (21.0-32.0); Chloride 113 meq/L (98-107); Glomerular Filtration Rate Greater Than 89 mL/min (>89); Glucose,Random 93 mg/dL (74-106); Potassium 3.8 meq/L (3.5-5.1); Sodium 143 meq/L (136-145)
--- NOTE | 2018-02-03 09:12 | P.PNNEU ---
Subjective Subjective Comments: no acute events Active Medications: Active Medications Acetaminophen (Tylenol) 650 mg PO Q6H PRN PRN Reason: PAIN 1-10 AND/OR FEVER >101F Al Hydroxide/Mg Hydroxide (Milk Of Chantelle Calderón) 30 ml PO Q12H PRN PRN Reason: Mild Constipation Albuterol (Duoneb Neb (Prn)) 1 ampul NEB Q2HR NEB PRN PRN Reason: WHEEZING Albuterol (Duoneb Neb (Prn)) 1 ampul NEB Q6HR NEB PRN PRN Reason: congestion, wheezing Bisacodyl (Dulcolax Supp) 10 mg RECTAL DAILY PRN PRN Reason: SEVERE CONSITIPATION Chlorhexidine Gluconate (Chlorhexidine 2% Cloth) 3 pack TOPICAL DAILY@0400 [facility] Stop: 02/05/18 03:59 Last Admin: 02/03/18 03:36 Dose: 3 pack Chlorhexidine Gluconate (Chlorhexidine 2% Cloth) 3 pack TOPICAL DAILY@0400 PRN PRN Reason: Extra cloth needed Stop: 02/05/18 03:59 Clopidogrel Bisulfate (Plavix) 75 mg PO DAILY [facility] Last Admin: 02/02/18 09:34 Dose: 75 mg Dextrose (D50w Vial) 50 ml IV.PUSH UNSCH PRN PRN Reason: PER HYPOGLYCEMIA PROTOCOL Enalaprilat (Vasotec Inj) 1.25 mg IV.PUSH Q4H PRN PRN Reason: For SBP > 220 or DBP > 120 Last Admin: 02/02/18 00:16 Dose: 1.25 mg Famotidine (Pepcid) 20 mg PO HS [facility] Last Admin: 02/02/18 21:12 Dose: 20 mg Fluticasone Propionate (Flonase Nasal [place]) 2 spray NASAL DAILY [facility] Last Admin: 02/02/18 09:35 Dose: 2 spray Glucagon (Glucagon Inj) 1 mg OTHER UNSCH PRN PRN Reason: for Hypoglycemia Protocol Heparin Sodium (Porcine) (Heparin Inj) 5,000 units SQ Q8HR [facility] Last Admin: 02/03/18 06:12 Dose: 5,000 units Magnesium Sulfate 4 gm/ Sodium (Chloride) 100 mls @ 50 mls/hr IV.SIG UNSCH PRN PRN Reason: For Magnesium 0.9 - 1.1 mg/dL Magnesium Sulfate 2 gm/ Sodium (Chloride) 100 mls @ 50 mls/hr IV.SIG UNSCH PRN PRN Reason: For Magnesium 1.2 - 1.6 mg/dL Potassium Chloride (Kcl 40 Meq Premix Inj) 40 meq in 100 mls @ 25 mls/hr IV.SIG Q2H PRN PRN Reason: For Potassium 2.8 - 3.2 mEq/L Potassium Chloride (Kcl 40 Meq Premix Inj) 40 meq in 100 mls @ 25 mls/hr IV.SIG UNSCH PRN PRN Reason: For Potassium 3.3 - 3.5 mEq/L Potassium Chloride (Kcl 20 Meq Premix Inj) 20 meq in 100 mls @ 50 mls/hr IV.SIG Q2H PRN PRN Reason: For Potassium 2.8 - 3.2 mEq/L Potassium Phosphate 30 mmol/ (Sodium Chloride) 260 mls @ 42 mls/hr IV.SIG UNSCH PRN PRN Reason: SEE LABEL COMMENTS Sodium Phosphate 30 mmol/ (Sodium Chloride) 260 mls @ 42 mls/hr IV.SIG UNSCH PRN PRN Reason: For Phosphorus < 2.5 mg/dL Potassium Chloride (Kcl 20 Meq Premix Inj) 20 meq in 100 mls @ 50 mls/hr IV.SIG Q2H PRN PRN Reason: For Potassium 3.3 - 3.5 mEq/L Labetalol HCl (Trandate Inj) 10 mg IV.PUSH Q2H PRN PRN Reason: For SBP > 220 or DBP > 120 Lactulose (Lactulose Liq) 30 ml PO DAILY PRN PRN Reason: SEVERE CONSITIPATION Magnesium Oxide (Mag-Ox) 800 mg PO UNSCH PRN PRN Reason: For Magnesium 1.2 - 1.6 mg/dL Multivitamins (Theragran) 1 tab PO DAILY [facility] Last Admin: 02/02/18 09:34 Dose: 1 tab Ondansetron HCl (Zofran Inj) 4 mg IV.PUSH Q6H PRN PRN Reason: NAUSEA OR VOMITING Potassium Bicarb/Potassium Chloride (K-Lyte Cl Eff) 50 meq PO UNSCH PRN PRN Reason: For Potassium 3.3 - 3.5 mEq/L Last Admin: 02/02/18 13:32 Dose: 50 meq Potassium Phosphate (K-Phos Original) 2,000 mg PO Q4H PRN PRN Reason: Phosphorus Less Than 2.5 mg/dL Potassium Phosphate (K-Phos Original) 2,000 mg PO UNSCH PRN PRN Reason: SEE LABEL COMMENTS Pravastatin Sodium (Pravachol) 40 mg PO [facility] Last Admin: 02/02/18 21:11 Dose: 40 mg Senna/Docusate Sodium (Malou-Colace) 1 tab PO BID [facility] Last Admin: 02/02/18 21:12 Dose: 1 tab Sennosides (Senokot) 17.2 mg PO Q12H PRN PRN Reason: Moderate Constipation Sodium Chloride (Ns Flush) 2 ml IV.FLUSH BID [facility] Last Admin: 02/02/18 21:11 Dose: 2 ml Sodium Chloride (Ns Flush) 2 ml IV.FLUSH PRN PRN PRN Reason: FLUSH AFTER USING IV ACCESS Allergies/Adverse Reactions: Allergies Allergy/AdvReac Type Severity Reaction Status Date / Time No Known Allergies Allergy Unverified 01/30/18 02:36 Review of Systems All other systems reviewed negative except as stated in HPI Physical Exam Vital signs: Vital Signs 02/02/18 09:30 02/02/18 12:00 02/02/18 16:00 Temperature 97.6 F 98 F Pulse Rate 51 L 54 L Respiratory Rate 18 18 Blood Pressure 191/90 H 192/92 H Pulse Oximetry 97 98 98 02/02/18 19:00 02/02/18 19:47 02/02/18 20:00 Temperature 97.9 F Pulse Rate 50 L 56 L Respiratory Rate 15 Blood Pressure 177/93 H Pulse Oximetry 97 96 02/03/18 00:00 02/03/18 04:00 02/03/18 08:00 Temperature 98.2 F 98.2 F 97.5 F L Pulse Rate 46 L 52 L 47 L Respiratory Rate 14 20 18 Blood Pressure 184/103 H 195/97 H 211/102 H Pulse Oximetry 94 L 97 98 Intake & Output 02/02/18 02/03/18 02/03/18 18:59 06:59 18:59 Intake Total 2507 / 2507 1047 / 1047 Output Total 600 / 600 1400 / 1400 Balance 1907 / 1907 -353 / -353 Weight 77.9 kg Intake: IV 2046 / 2046 1047 / 1047 Sodium Chloride 23.4% Inj 188 1047 / 1047 1047 / 1047 MEQ In NS Inj 1,000 ML @ 40 mls /hr IV.CONT .Q24H [facility] Rx#: [id number] Oral 460 / 460 Output: Urine Amount (Catheter) 600 / 600 1400 / 1400 Condom 600 / 600 1400 / 1400 Other: Date of Last Bowel Movement 01/29/18 01/29/18 Narrative: GENERAL: in NAD, SKIN: Warm and dry. HEAD: Atraumatic. Normocephalic. EYES: Pupils equal and round. No scleral icterus. ENT: No nasal bleeding or discharge. Mucous membranes pink and moist. NECK: Trachea midline. No JVD. CARDIOVASCULAR: Regular rate and rhythm. RESPIRATORY: No accessory muscle use. GASTROINTESTINAL: Abdomen soft, non-tender, nondistended. MUSCULOSKELETAL: Extremities without clubbing, cyanosis, or edema. No obvious deformities. NEUROLOGICAL: More alert, global aphasia, tries to open close eyes when being asked although not consistent right lower facial weakness, right hemiplegia withdraws localized to the left side PSYCHIATRIC: Calm - Constitutional no acute distress - Routine HEENT Exam Head: Present: normocephalic - Urinary Catheter Management Indwelling Urethral Catheter Cath placed during this visit: yes, but has since been removed by the nurse Reason for continuing: Decision to DC catheter Insertion date: 01/30/18 Insertion time: 02:50 Removal date: 02/01/18 Removal time: 16:30 Condom Cath placed during this visit: yes Reason for continuing: Not indwelling catheter Insertion date: 02/01/18 Insertion time: 16:45 Objective Laboratory Results - last 24 hr 02/03/18 06:35 Sodium 143 Potassium 3.8 Chloride 113 H Carbon Dioxide 22.5 Anion Gap 8 BUN 11 Creatinine 0.65 Estimated GFR Greater than 89 Random Glucose 93 Calcium 8.0 L Review/Management - Diagnosis (1) Acute ischemic left middle cerebral artery (MCA) stroke Code(s): I63.512 - Cerebral infarction due to unspecified occlusion or stenosis of left middle cerebral artery Status: Acute Current Visit: Yes (2) Left carotid stenosis Code(s): I65.22 - Occlusion and stenosis of left carotid artery Status: Acute Current Visit: Yes (3) Hypertension Code(s): I10 - Essential (primary) hypertension Status: Acute Current Visit : Yes (4) Tobacco use Code(s): Z72.0 - Tobacco use Status: Acute Current Visit: Yes - Review/Management Plan: Left high-grade stenosis/dissection status post IV TPA, status post stent placement, day 4 Risk factors include chronic tobacco use and hypertension CT brain reviewed, overall stable minimal increase in edema On Plavix Recommendations Neuro stable. alert Consider floor when cleared by critical care and neurosurgery; appreciate their care Therapy Telemetry Patient is critically ill needs to be in the ICU Discussed with spouse,hospitalist
[2018-02-03] MEDS: Senna/Docusate Sodium 8.6/50 MG Tablet PO SCH ×2 (09:18→21:16)
--- NOTE | 2018-02-03 16:47 | P.PN ---
Subjective Interval history: Follow-up Acute thrombosis of left internal carotid artery superimposed on chronic atherosclerosis February 03, 2018-patient seen and examined, no acute event overnight, afebrile. by the bedside and she is wandering if patient can be transferred to [facility] back in [place] Physical Exam Vital signs: Vital Signs 02/02/18 19:00 02/02/18 19:47 02/02/18 20:00 Temperature 97.9 F Pulse Rate 50 L 56 L Respiratory Rate 15 Blood Pressure 177/93 H Pulse Oximetry 97 96 02/03/18 00:00 02/03/18 04:00 02/03/18 08:00 Temperature 98.2 F 98.2 F 97.5 F L Pulse Rate 46 L 52 L 47 L Respiratory Rate 14 20 18 Blood Pressure 184/103 H 195/97 H 211/102 H Pulse Oximetry 94 L 97 98 02/03/18 09:25 02/03/18 12:00 Temperature 98.7 F Pulse Rate Respiratory Rate 17 Blood Pressure 148/83 H Pulse Oximetry 95 Intake & Output 02/02/18 02/03/18 02/03/18 18:59 06:59 18:59 Intake Total 2507 / 2507 1047 / 1047 997 / 997 Output Total 600 / 600 1400 / 1400 Balance 1907 / 1907 -353 / -353 997 / 997 Weight 77.9 kg Intake: IV 2047 / 2047 1047 / 1047 997 / 997 Sodium Chloride 23.4% Inj 188 1047 / 1047 1047 / 1047 997 / 997 MEQ In NS Inj 1,000 ML @ 40 mls /hr IV.CONT .Q24H [facility] Rx#: [id number] Oral 460 / 460 Output: Urine Amount (Catheter) 600 / 600 1400 / 1400 Condom 600 / 600 1400 / 1400 Other: Date of Last Bowel Movement 01/29/18 01/29/18 02/03/18 Narrative: GENERAL: in NAD, SKIN: Warm and dry. HEAD: Atraumatic. Normocephalic. EYES: Pupils equal and round. No scleral icterus. ENT: No nasal bleeding or discharge. Mucous membranes pink and moist. NECK: Trachea midline. No JVD. CARDIOVASCULAR: Regular rate and rhythm. RESPIRATORY: No accessory muscle use. GASTROINTESTINAL: Abdomen soft, non-tender, nondistended. MUSCULOSKELETAL: Extremities without clubbing, cyanosis, or edema. No obvious deformities. NEUROLOGICAL: More alert, global aphasia, tries to open close eyes when being asked although not consistent right lower facial weakness, right hemiplegia withdraws localized to the left side - Urinary Catheter Management Indwelling Urethral Catheter Cath placed during this visit: yes, but has since been removed by the nurse Reason for continuing: Decision to DC catheter Insertion date: 01/30/18 Insertion time: 02:50 Removal date: 02/01/18 Removal time: 16:30 Condom Cath placed during this visit: yes Reason for continuing: Not indwelling catheter Insertion date: 02/01/18 Insertion time: 16:45 Results - Labs CBC & Chem 7: 02/02/18 05:03 02/03/18 06:35 Laboratory Results - last 24 hr 02/03/18 06:35 Sodium 143 Potassium 3.8 Chloride 113 H Carbon Dioxide 22.5 Anion Gap 8 BUN 11 Creatinine 0.65 Estimated GFR Greater than 89 Random Glucose 93 Calcium 8.0 L Assessment and Plan - Assessment (1) Acute ischemic stroke Code(s): I63.9 - Cerebral infarction, unspecified Status: Acute (2) Acute ischemic left middle cerebral artery (MCA) stroke Code(s): I63.512 - Cerebral infarction due to unspecified occlusion or stenosis of left middle cerebral artery Status: Acute (3) Left carotid stenosis Code(s): I65.22 - Occlusion and stenosis of left carotid artery Status: Acute (4) Hypertension Code(s): I10 - Essential (primary) hypertension Status: Acute (5) Tobacco use Code(s): Z72.0 - Tobacco use Status: Acute - Plan 57-year-old man with Acute MCA CVA Acute thrombosis of left internal carotid artery superimposed on chronic atherosclerosis * S/P TPA administration * S/P IR stent placement with thrombus retrieval * Appreciate input from Neurology * PT and OT, speech therapy Cerebral edema * Monitor in the ICU for possible intubation or worsening mental status * Patient noted to have 5 mm midline shift on follow up CT scan this morning, remains at very high risk for malignant MCA syndrome. * Continue 2% peripheral hypertonic saline, salt tabs * MRI/MRA showed large left cerebral infarct, no abnormalities of COW Hypertension * Off Cardene drip, BP labile * Vasotec, labetalol as needed Dyslipidemia * Pravastatin DVT GI prophylaxis * SCDs, SC heparin * On Pepcid PO Q day Positive toxicology screen * Cocaine Chronic daily alcohol abuse * MVI/ thiamine * Try to avoid benzodiazepines except for seizures so as not to cloud neuro exam * No signs of EtOH withdrawal presently
[2018-02-03] MEDS: Famotidine 20 MG Tablet PO SCH (21:16)
[2018-02-04] MEDS: Chlorhexidine Gluconate 2% 1 Pack (2 Cloths) TOPICAL SCH (04:50)
[2018-02-04] MEDS: Heparin - SQ 10,000 UNITS/ML Vial SQ SCH ×3 (05:50→21:05)
--- NOTE | 2018-02-04 08:03 | P.PNNEU ---
Subjective Subjective Comments: No acute events Active Medications: Active Medications Acetaminophen (Tylenol) 650 mg PO Q6H PRN PRN Reason: PAIN 1-10 AND/OR FEVER >101F Al Hydroxide/Mg Hydroxide (Milk Of Chantelle Calderón) 30 ml PO Q12H PRN PRN Reason: Mild Constipation Albuterol (Duoneb Neb (Prn)) 1 ampul NEB Q2HR NEB PRN PRN Reason: WHEEZING Albuterol (Duoneb Neb (Prn)) 1 ampul NEB Q6HR NEB PRN PRN Reason: congestion, wheezing Bisacodyl (Dulcolax Supp) 10 mg RECTAL DAILY PRN PRN Reason: SEVERE CONSITIPATION Chlorhexidine Gluconate (Chlorhexidine 2% Cloth) 3 pack TOPICAL DAILY@0400 [facility] Stop: 02/05/18 03:59 Last Admin: 02/04/18 04:50 Dose: 3 pack Chlorhexidine Gluconate (Chlorhexidine 2% Cloth) 3 pack TOPICAL DAILY@0400 PRN PRN Reason: Extra cloth needed Stop: 02/05/18 03:59 Clopidogrel Bisulfate (Plavix) 75 mg PO DAILY [facility] Last Admin: 02/03/18 09:18 Dose: 75 mg Dextrose (D50w Vial) 50 ml IV.PUSH UNSCH PRN PRN Reason: PER HYPOGLYCEMIA PROTOCOL Enalaprilat (Vasotec Inj) 1.25 mg IV.PUSH Q4H PRN PRN Reason: For SBP > 220 or DBP > 120 Last Admin: 02/02/18 00:16 Dose: 1.25 mg Famotidine (Pepcid) 20 mg PO HS [facility] Last Admin: 02/03/18 21:16 Dose: 20 mg Fluticasone Propionate (Flonase Nasal [place]) 2 spray NASAL DAILY [facility] Last Admin: 02/03/18 09:18 Dose: 2 spray Glucagon (Glucagon Inj) 1 mg OTHER UNSCH PRN PRN Reason: for Hypoglycemia Protocol Heparin Sodium (Porcine) (Heparin Inj) 5,000 units SQ Q8HR [facility] Last Admin: 02/04/18 05:50 Dose: 5,000 units Magnesium Sulfate 4 gm/ Sodium (Chloride) 100 mls @ 50 mls/hr IV.SIG UNSCH PRN PRN Reason: For Magnesium 0.9 - 1.1 mg/dL Magnesium Sulfate 2 gm/ Sodium (Chloride) 100 mls @ 50 mls/hr IV.SIG UNSCH PRN PRN Reason: For Magnesium 1.2 - 1.6 mg/dL Potassium Chloride (Kcl 40 Meq Premix Inj) 40 meq in 100 mls @ 25 mls/hr IV.SIG Q2H PRN PRN Reason: For Potassium 2.8 - 3.2 mEq/L Potassium Chloride (Kcl 40 Meq Premix Inj) 40 meq in 100 mls @ 25 mls/hr IV.SIG UNSCH PRN PRN Reason: For Potassium 3.3 - 3.5 mEq/L Potassium Chloride (Kcl 20 Meq Premix Inj) 20 meq in 100 mls @ 50 mls/hr IV.SIG Q2H PRN PRN Reason: For Potassium 2.8 - 3.2 mEq/L Potassium Phosphate 30 mmol/ (Sodium Chloride) 260 mls @ 42 mls/hr IV.SIG UNSCH PRN PRN Reason: SEE LABEL COMMENTS Sodium Phosphate 30 mmol/ (Sodium Chloride) 260 mls @ 42 mls/hr IV.SIG UNSCH PRN PRN Reason: For Phosphorus < 2.5 mg/dL Potassium Chloride (Kcl 20 Meq Premix Inj) 20 meq in 100 mls @ 50 mls/hr IV.SIG Q2H PRN PRN Reason: For Potassium 3.3 - 3.5 mEq/L Labetalol HCl (Trandate Inj) 10 mg IV.PUSH Q2H PRN PRN Reason: For SBP > 220 or DBP > 120 Lactulose (Lactulose Liq) 30 ml PO DAILY PRN PRN Reason: SEVERE CONSITIPATION Magnesium Oxide (Mag-Ox) 800 mg PO UNSCH PRN PRN Reason: For Magnesium 1.2 - 1.6 mg/dL Multivitamins (Theragran) 1 tab PO DAILY [facility] Last Admin: 02/03/18 09:18 Dose: 1 tab Ondansetron HCl (Zofran Inj) 4 mg IV.PUSH Q6H PRN PRN Reason: NAUSEA OR VOMITING Potassium Bicarb/Potassium Chloride (K-Lyte Cl Eff) 50 meq PO UNSCH PRN PRN Reason: For Potassium 3.3 - 3.5 mEq/L Last Admin: 02/02/18 13:32 Dose: 50 meq Potassium Phosphate (K-Phos Original) 2,000 mg PO Q4H PRN PRN Reason: Phosphorus Less Than 2.5 mg/dL Potassium Phosphate (K-Phos Original) 2,000 mg PO UNSCH PRN PRN Reason: SEE LABEL COMMENTS Pravastatin Sodium (Pravachol) 40 mg PO HS [facility] Last Admin: 02/03/18 21:16 Dose: 40 mg Senna/Docusate Sodium (Malou-Colace) 1 tab PO BID [facility] Last Admin: 02/03/18 21:16 Dose: 1 tab Sennosides (Senokot) 17.2 mg PO Q12H PRN PRN Reason: Moderate Constipation Sodium Chloride (Ns Flush) 2 ml IV.FLUSH BID [facility] Last Admin: 02/03/18 21:16 Dose: 2 ml Sodium Chloride (Ns Flush) 2 ml IV.FLUSH PRN PRN PRN Reason: FLUSH AFTER USING IV ACCESS Allergies/Adverse Reactions: Allergies Allergy/AdvReac Type Severity Reaction Status Date / Time No Known Allergies Allergy Unverified 01/30/18 02:36 Review of Systems All other systems reviewed negative except as stated in HPI Physical Exam Vital signs: Vital Signs 02/03/18 09:25 02/03/18 12:00 02/03/18 16:00 Temperature 98.7 F 98.8 F Pulse Rate Respiratory Rate 17 16 Blood Pressure 148/83 H 148/84 H Pulse Oximetry 95 02/03/18 19:00 02/03/18 20:00 02/04/18 00:00 Temperature 99.0 F 98.7 F Pulse Rate 61 61 49 L Respiratory Rate 18 13 Blood Pressure 161/88 H 187/98 H Pulse Oximetry 95 98 02/04/18 04:00 Temperature 98.0 F Pulse Rate 47 L Respiratory Rate 16 Blood Pressure 159/69 H Pulse Oximetry 96 Intake & Output 02/03/18 02/04/18 02/04/18 18:59 06:59 18:59 Intake Total 1497 / 1497 240 / 240 Output Total 300 / 300 0 / 0 Balance 1197 / 1197 240 / 240 Weight 76.5 kg Intake: IV 997 / 997 Sodium Chloride 23.4% Inj 188 997 / 997 MEQ In NS Inj 1,000 ML @ 40 mls /hr IV.CONT .Q24H [facility] Rx#: [id number] Oral 500 / 500 240 / 240 Output: Stool 0 / 0 Urine Amount (Catheter) 300 / 300 Condom 300 / 300 Other: # Incontinent Voids 4 7 Date of Last Bowel Movement 02/03/18 02/03/18 # Bowel Movements 0 Narrative: GENERAL: in NAD, SKIN: Warm and dry. HEAD: Atraumatic. Normocephalic. EYES: Pupils equal and round. No scleral icterus. ENT: No nasal bleeding or discharge. Mucous membranes pink and moist. NECK: Trachea midline. No JVD. CARDIOVASCULAR: Regular rate and rhythm. RESPIRATORY: No accessory muscle use. GASTROINTESTINAL: Abdomen soft, non-tender, nondistended. MUSCULOSKELETAL: Extremities without clubbing, cyanosis, or edema. No obvious deformities. NEUROLOGICAL: Resting easily alerts, global aphasia, tries to open close eyes when being asked although not consistent right lower facial weakness, right hemiplegia withdraws localized to the left side - Constitutional no acute distress - Routine HEENT Exam Head: Present: normocephalic - Urinary Catheter Management Indwelling Urethral Catheter Cath placed during this visit: yes, but has since been removed by the nurse Reason for continuing: Decision to DC catheter Insertion date: 01/30/18 Insertion time: 02:50 Removal date: 02/01/18 Removal time: 16:30 Condom Cath placed during this visit: yes Reason for continuing: Not indwelling catheter Insertion date: 02/01/18 Insertion time: 16:45 Review/Management - Diagnosis (1) Acute ischemic left middle cerebral artery (MCA) stroke Code(s): I63.512 - Cerebral infarction due to unspecified occlusion or stenosis of left middle cerebral artery Status: Acute Current Visit: Yes (2) Left carotid stenosis Code(s): I65.22 - Occlusion and stenosis of left carotid artery Status: Acute Current Visit: Yes (3) Hypertension Code(s): I10 - Essential (primary) hypertension Status: Acute Current Visit : Yes (4) Tobacco use Code(s): Z72.0 - Tobacco use Status: Acute Current Visit: Yes - Review/Management Plan: Left high-grade stenosis/dissection status post IV TPA, status post stent placement, day 5 Risk factors include chronic tobacco use and hypertension nihss 16 CT brain reviewed, overall stable minimal increase in edema On Plavix Recommendations Neuro stable. alert Consider floor when cleared by critical care and neurosurgery; appreciate their care Would keep him inpatient until early next week Wednesday and then look at rehab placement Ultimately he will go to rehab in [place] the has been arranging this Therapy Telemetry Discussed with spouse,hospitalist
--- NOTE | 2018-02-04 08:39 | P.PN ---
Subjective Interval history: Follow-up Acute thrombosis of left internal carotid artery superimposed on chronic atherosclerosis February 03, 2018-patient seen and examined, no acute event overnight, afebrile. by the bedside and she is wandering if patient can be transferred to [facility] back in [place] February 04, 2018-patient seen and examined, no acute event overnight and currently stable. Afebrile. Case discussed with neurology at bedside with patient's . Physical Exam Vital signs: Vital Signs 02/03/18 09:25 02/03/18 12:00 02/03/18 16:00 Temperature 98.7 F 98.8 F Pulse Rate Respiratory Rate 17 16 Blood Pressure 148/83 H 148/84 H Pulse Oximetry 95 02/03/18 19:00 02/03/18 20:00 02/04/18 00:00 Temperature 99.0 F 98.7 F Pulse Rate 61 61 49 L Respiratory Rate 18 13 Blood Pressure 161/88 H 187/98 H Pulse Oximetry 95 98 02/04/18 04:00 Temperature 98.0 F Pulse Rate 47 L Respiratory Rate 16 Blood Pressure 159/69 H Pulse Oximetry 96 Intake & Output 02/03/18 02/04/18 02/04/18 18:59 06:59 18:59 Intake Total 1497 / 1497 240 / 240 Output Total 300 / 300 0 / 0 Balance 1197 / 1197 240 / 240 Weight 76.5 kg Intake: IV 997 / 997 Sodium Chloride 23.4% Inj 188 997 / 997 MEQ In NS Inj 1,000 ML @ 40 mls /hr IV.CONT .Q24H [facility] Rx#: [id number] Oral 500 / 500 240 / 240 Output: Stool 0 / 0 Urine Amount (Catheter) 300 / 300 Condom 300 / 300 Other: # Incontinent Voids 4 7 Date of Last Bowel Movement 02/03/18 02/03/18 # Bowel Movements 0 Narrative: GENERAL: NAD SKIN: Warm and dry. HEAD: Normocephalic. EYES: No scleral icterus. No injection or drainage. NECK: Supple, trachea midline. No JVD or lymphadenopathy. CARDIOVASCULAR: Regular rate and rhythm without murmurs, gallops, or rubs. RESPIRATORY: Breath sounds equal bilaterally. No accessory muscle use. GASTROINTESTINAL: Abdomen soft, non-tender, nondistended. MUSCULOSKELETAL: No cyanosis, or edema. BACK: Nontender without obvious deformity. No CVA tenderness. Neuro: right sided hemiparesis - Urinary Catheter Management Indwelling Urethral Catheter Cath placed during this visit: yes, but has since been removed by the nurse Reason for continuing: Decision to DC catheter Insertion date: 01/30/18 Insertion time: 02:50 Removal date: 02/01/18 Removal time: 16:30 Condom Cath placed during this visit: yes Reason for continuing: Not indwelling catheter Insertion date: 02/01/18 Insertion time: 16:45 Results - Labs CBC & Chem 7: 02/02/18 05:03 02/03/18 06:35 Assessment and Plan - Assessment (1) Acute ischemic stroke Code(s): I63.9 - Cerebral infarction, unspecified Status: Acute (2) Acute ischemic left middle cerebral artery (MCA) stroke Code(s): I63.512 - Cerebral infarction due to unspecified occlusion or stenosis of left middle cerebral artery Status: Acute (3) Left carotid stenosis Code(s): I65.22 - Occlusion and stenosis of left carotid artery Status: Acute (4) Hypertension Code(s): I10 - Essential (primary) hypertension Status: Acute (5) Tobacco use Code(s): Z72.0 - Tobacco use Status: Acute - Plan 57-year-old man with Acute MCA CVA Acute thrombosis of left internal carotid artery superimposed on chronic atherosclerosis * S/P TPA administration * S/P IR stent placement with thrombus retrieval * Appreciate input from Neurology * PT and OT, speech therapy Cerebral edema * Monitor in the ICU for possible intubation or worsening mental status * Patient noted to have 5 mm midline shift on follow up CT scan this morning, remains at very high risk for malignant MCA syndrome. * Continue 2% peripheral hypertonic saline, salt tabs. Monitor BMP in a.m. * MRI/MRA showed large left cerebral infarct, no abnormalities of COW Hypertension * Off Cardene drip, BP labile * Vasotec, labetalol as needed Dyslipidemia * Pravastatin DVT GI prophylaxis * SCDs, SC heparin * On Pepcid PO Q day Positive toxicology screen * Cocaine Chronic daily alcohol abuse * MVI/ thiamine * Try to avoid benzodiazepines except for seizures so as not to cloud neuro exam * Transfer to [facility] when okay by neurosurgery Discharge planning next week
[2018-02-04] MEDS: Senna/Docusate Sodium 8.6/50 MG Tablet PO SCH ×2 (09:09→21:05)
--- NOTE | 2018-02-04 13:15 | P.PNNS ---
Subjective Interval history: Pt awake and alert. Severe expressive and receptive aphasia. Occasionally he is able to respond to a question with a no response or nodding his head no. He denies any headaches or nausea. <Johnny Hugo - Last Filed: 02/04/18 12:41> Physical Exam Vital signs: Vital Signs 02/03/18 16:00 02/03/18 19:00 02/03/18 20:00 Temperature 98.8 F 99.0 F Pulse Rate 61 61 Respiratory Rate 16 18 Blood Pressure 148/84 H 161/88 H Pulse Oximetry 95 02/04/18 00:00 02/04/18 04:00 02/04/18 08:00 Temperature 98.7 F 98.0 F 97.9 F Pulse Rate 49 L 47 L 55 L Respiratory Rate 13 16 19 Blood Pressure 187/98 H 159/69 H 170/88 H Pulse Oximetry 98 96 95 02/04/18 12:00 Temperature Pulse Rate Respiratory Rate 19 Blood Pressure Pulse Oximetry Intake & Output 02/03/18 02/04/18 02/04/18 18:59 06:59 18:59 Intake Total 1497 / 1497 240 / 240 Output Total 300 / 300 0 / 0 Balance 1197 / 1197 240 / 240 Weight 76.5 kg Intake: IV 997 / 997 Sodium Chloride 23.4% Inj 188 997 / 997 MEQ In NS Inj 1,000 ML @ 40 mls /hr IV.CONT .Q24H [facility] Rx#: [id number] Oral 500 / 500 240 / 240 Output: Stool 0 / 0 Urine Amount (Catheter) 300 / 300 Condom 300 / 300 Other: # Incontinent Voids 4 7 Date of Last Bowel Movement 02/03/18 02/03/18 02/03/18 # Bowel Movements 0 - Constitutional no acute distress - Routine HEENT Exam Head: Present: normocephalic, atraumatic Eye: Present: PERRL (Pupils 3mm bilaterally reactive bilaterally.). Absent: conjunctival icterus ENT: Present: oropharynx clear - Routine Neck Exam Present: trachea midline - Routine Respiratory Exam Present: CTA bilaterally. Absent: patient mechanically ventilated, respiratory distress, rhonchi, wheezes - Routine Cardiovascular Exam Present: RRR, S1, S2. Absent: murmur - Routine Abdominal Exam Present: soft, normoactive bowel sounds. Absent: distended, firm - Routine Skin Exam Absent: cyanosis, erythema - Routine Neurological Exam Present: alert, motor deficit (Right dense hemiparesis/plegia.). Absent: altered mental status, moving all extremities, normal speech (Severe expressive and receptive aphasia.) - Routine Psychiatric Exam Present: normal affect, cooperative. Absent: anxious, agitated - Urinary Catheter Management Indwelling Urethral Catheter Cath placed during this visit: yes, but has since been removed by the nurse Reason for continuing: Decision to DC catheter Insertion date: 01/30/18 Insertion time: 02:50 Removal date: 02/01/18 Removal time: 16:30 Condom Cath placed during this visit: yes Reason for continuing: Not indwelling catheter Insertion date: 02/01/18 Insertion time: 16:45 <Johnny Hugo - Last Filed: 02/04/18 12:41> Vital signs: Vital Signs 02/03/18 16:00 02/03/18 19:00 02/03/18 20:00 Temperature 98.8 F 99.0 F Pulse Rate 61 61 Respiratory Rate 16 18 Blood Pressure 148/84 H 161/88 H Pulse Oximetry 95 02/04/18 00:00 02/04/18 04:00 02/04/18 08:00 Temperature 98.7 F 98.0 F 97.9 F Pulse Rate 49 L 47 L 55 L Respiratory Rate 13 16 19 Blood Pressure 187/98 H 159/69 H 170/88 H Pulse Oximetry 98 96 95 02/04/18 12:00 Temperature Pulse Rate Respiratory Rate 19 Blood Pressure Pulse Oximetry Intake & Output 02/03/18 02/04/18 02/04/18 18:59 06:59 18:59 Intake Total 1497 / 1497 240 / 240 Output Total 300 / 300 0 / 0 Balance 1197 / 1197 240 / 240 Weight 76.5 kg Intake: IV 997 / 997 Sodium Chloride 23.4% Inj 188 997 / 997 MEQ In NS Inj 1,000 ML @ 40 mls /hr IV.CONT .Q24H [facility] Rx#: [id number] Oral 500 / 500 240 / 240 Output: Stool 0 / 0 Urine Amount (Catheter) 300 / 300 Condom 300 / 300 Other: # Incontinent Voids 4 7 Date of Last Bowel Movement 09/27/18 09/27/18 09/27/18 # Bowel Movements 0 - Urinary Catheter Management Indwelling Urethral Catheter Cath placed during this visit: no Condom Cath placed during this visit: no <Jem Neville - Last Filed: 02/04/18 15:17> Assessment and Plan - Assessment (1) Acute ischemic stroke Code(s): I63.9 - Cerebral infarction, unspecified Status: Acute (2) Acute ischemic left middle cerebral artery (MCA) stroke Code(s): I63.512 - Cerebral infarction due to unspecified occlusion or stenosis of left middle cerebral artery Status: Acute (3) Left carotid stenosis Code(s): I65.22 - Occlusion and stenosis of left carotid artery Status: Acute (4) Hypertension Code(s): I10 - Essential (primary) hypertension Status: Acute (5) Tobacco use Code(s): Z72.0 - Tobacco use Status: Acute - Plan 57-year-old gentleman with a left MCA area stroke with a mild mass-effect and midline shift status post thrombectomy for left ICA and MCA occlusion with stent placement. More alert today although remains severely aphasic with the right hemiplegia. Continue with speech therapy, physical therapy and occupational therapy. Pt will require rehab placement. Pt does not need neurosurgical intervention. We will sign off and see as needed. Updated family at bedside. <Johnny Hugo - Last Filed: 02/04/18 12:41> - Assessment (1) Acute ischemic left middle cerebral artery (MCA) stroke Code(s): I63.512 - Cerebral infarction due to unspecified occlusion or stenosis of left middle cerebral artery Status: Acute (2) Left carotid stenosis Code(s): I65.22 - Occlusion and stenosis of left carotid artery Status: Acute - Attending Attestation The exam, history, and the medical decision-making described in the above note were completed with the assistance of the mid-level provider. I reviewed and agree with the findings presented. I attest that I had a [id number] encounter with the patient on the same day, and personally performed and documented my assessment and findings in the medical record. <Jem Neville - Last Filed: 02/04/18 15:17>
[2018-02-04] MEDS: Famotidine 20 MG Tablet PO SCH (21:05)
[2018-02-05 04:40] LABS: Baso % (Auto) 0.5 % (0.0-2.0); Eos # (Auto) 0.1 th/mm3 (0.0-0.4); Eos % (Auto) 1.5 % (0.0-4.0); Hematocrit 36.3 % (39.0-51.0); Hemoglobin 12.9 gm/dL (13.0-17.0); Lymph # (Auto) 1.5 th/mm3 (1.0-4.8); Lymph % (Auto) 20.7 % (9.0-44.0); Mean Corpuscular HGB Conc 35.5 % (32.0-36.0); Mean Corpuscular Hemoglobin 34.2 pg (27.0-34.0); Mean Corpuscular Volume 96.2 fL (80.0-100.0); Mono # (Auto) 0.8 th/mm3 (0.0-0.9); Mono % (Auto) 10.3 % (0.0-8.0); Neut # (Auto) 4.9 th/mm3 (1.8-7.7); Platelet Count 259 th/mm3 (150-450); Red Blood Count 3.77 mil/mm3 (4.50-5.90); Red Cell Distribution Width 12.8 % (11.6-17.2); White Blood Count 7.3 th/mm3 (4.0-11.0)
[2018-02-05 04:59] LABS: Albumin 3.3 g/dL (3.4-5.0); Anion Gap 9 meq/L (5-15); Aspartate Aminotransferase 33 U/L (15-37); Blood Urea Nitrogen 19 mg/dL (7-18); Calcium 8.2 mg/dL (8.5-10.1); Carbon Dioxide 26.3 meq/L (21.0-32.0); Chloride 106 meq/L (98-107); Glomerular Filtration Rate Greater Than 89 mL/min (>89); Glucose,Random 92 mg/dL (74-106); Potassium 3.6 meq/L (3.5-5.1); Sodium 141 meq/L (136-145)
[2018-02-05 05:01] LABS: Alanine Aminotransferase 57 U/L (12-78)
[2018-02-05 05:03] LABS: Alkaline Phosphatase 68 U/L (45-117); Total Protein 6.9 g/dL (6.4-8.2)
[2018-02-05] MEDS: Heparin - SQ 10,000 UNITS/ML Vial SQ SCH ×3 (05:56→21:00)
[2018-02-05] MEDS: Senna/Docusate Sodium 8.6/50 MG Tablet PO SCH ×2 (08:52→20:57)
--- NOTE | 2018-02-05 09:46 | P.PN ---
Subjective Interval history: Follow-up Acute thrombosis of left internal carotid artery superimposed on chronic atherosclerosis February 03, 2018-patient seen and examined, no acute event overnight, afebrile. by the bedside and she is wandering if patient can be transferred to SNf back in [place] February 04, 2018-patient seen and examined, no acute event overnight and currently stable. Afebrile. Case discussed with neurology at bedside with patient's . February 05, 2018-patient seen and examined, with severe receptive and expressive aphasia. BP labile. Case discussed with patient's at bedside. Physical Exam Vital signs: Vital Signs 02/04/18 12:00 02/04/18 16:00 02/04/18 19:00 Temperature 98.8 F 98.1 F Pulse Rate 62 54 L 66 Respiratory Rate 30 H 16 Blood Pressure 140/80 136/79 Pulse Oximetry 96 94 L 02/04/18 20:00 02/05/18 00:00 02/05/18 04:00 Temperature 98.3 F 98.6 F 98.3 F Pulse Rate 66 52 L 57 L Respiratory Rate 20 19 18 Blood Pressure 148/93 H 174/95 H 167/93 H Pulse Oximetry 94 L 97 92 L Intake & Output 02/04/18 02/05/18 02/05/18 18:59 06:59 18:59 Intake Total 800 / 800 240 / 240 Output Total 0 / 0 Balance 800 / 800 240 / 240 Weight 76.9 kg Intake: Oral 800 / 800 240 / 240 Output: Stool 0 / 0 Other: # Incontinent Voids 6 # Urine Diapers 3 Date of Last Bowel Movement 02/04/18 02/05/18 # Bowel Movements 1 2 Narrative: GENERAL: NAD SKIN: Warm and dry. HEAD: Normocephalic. EYES: No scleral icterus. No injection or drainage. NECK: Supple, trachea midline. No JVD or lymphadenopathy. CARDIOVASCULAR: Regular rate and rhythm without murmurs, gallops, or rubs. RESPIRATORY: Breath sounds equal bilaterally. No accessory muscle use. GASTROINTESTINAL: Abdomen soft, non-tender, nondistended. MUSCULOSKELETAL: No cyanosis, or edema. BACK: Nontender without obvious deformity. No CVA tenderness. Neuro: right sided hemiparesis - Urinary Catheter Management Indwelling Urethral Catheter Cath placed during this visit: yes, but has since been removed by the nurse Reason for continuing: Decision to DC catheter Insertion date: 01/30/18 Insertion time: 02:50 Removal date: 02/01/18 Removal time: 16:30 Condom Cath placed during this visit: yes Reason for continuing: Not indwelling catheter Insertion date: 02/01/18 Insertion time: 16:45 Results - Labs CBC & Chem 7: 02/05/18 04:12 02/05/18 04:12 Laboratory Results - last 24 hr 02/05/18 02/05/18 04:12 04:12 WBC 7.3 RBC 3.77 L Hgb 12.9 L Hct 36.3 L MCV 96.2 MCH 34.2 H MCHC 35.5 RDW 12.8 Plt Count 259 D MPV 8.0 Neut % (Auto) 67.0 Lymph % (Auto) 20.7 [place] % (Auto) 10.3 H Eos % (Auto) 1.5 Baso % (Auto) 0.5 Neut # (Auto) 4.9 Lymph # (Auto) 1.5 [place] # (Auto) 0.8 Eos # (Auto) 0.1 Baso # (Auto) 0.0 WBC Differential . Differential Comment Auto diff final Sodium 141 Potassium 3.6 Chloride 106 Carbon Dioxide 26.3 Anion Gap 9 BUN 19 H Creatinine 0.85 Estimated GFR Greater than 89 Random Glucose 92 Calcium 8.2 L Total Bilirubin 0.7 AST 33 ALT 57 Alkaline Phosphatase 68 Total Protein 6.9 D Albumin 3.3 L - Imaging Impressions Cerebral Arteriogram 01/30/18 00:00 CONCLUSION: 1. Extensive thrombosis of the left internal carotid artery and left MCA vessels. 2. Patient had an excellent response to IV TPA with almost complete resolution of the acute thrombus in the left internal carotid. This unmasked a high-grade nonostial stenosis of the internal which was probably the source of emboli to the left MCA territory. 3. The high-grade stenosis was successfully stented and balloon angioplasty with a tapered 8-6, 40 cm Protege stent. 4. Complete clearance of the embolic material from the left M1 and proximal M2 segments with 2 passes of the 068-max penumbra aspiration catheter. Assessment and Plan - Assessment (1) Acute ischemic stroke Code(s): I63.9 - Cerebral infarction, unspecified Status: Acute (2) Acute ischemic left middle cerebral artery (MCA) stroke Code(s): I63.512 - Cerebral infarction due to unspecified occlusion or stenosis of left middle cerebral artery Status: Acute (3) Left carotid stenosis Code(s): I65.22 - Occlusion and stenosis of left carotid artery Status: Acute (4) Hypertension Code(s): I10 - Essential (primary) hypertension Status: Acute (5) Tobacco use Code(s): Z72.0 - Tobacco use Status: Acute - Plan 57-year-old man with Acute MCA CVA Acute thrombosis of left internal carotid artery superimposed on chronic atherosclerosis * S/P TPA administration * S/P IR stent placement with thrombus retrieval * Appreciate input from Neurology * PT and OT, speech therapy Cerebral edema * Monitor in the ICU for possible intubation or worsening mental status * Patient noted to have 5 mm midline shift on follow up CT scan this morning, remains at very high risk for malignant MCA syndrome. * Continue 2% peripheral hypertonic saline, salt tabs. * MRI/MRA showed large left cerebral infarct, no abnormalities of COW Hypertension * Off Cardene drip, BP labile ; start lisinopril 10 mg daily today January * Vasotec, labetalol as needed Dyslipidemia * Pravastatin DVT GI prophylaxis * SCDs, SC heparin * On Pepcid PO Q day Positive toxicology screen * Cocaine Chronic daily alcohol abuse * MVI/ thiamine * Try to avoid benzodiazepines except for seizures so as not to cloud neuro exam * Transfer to [facility] Discharge planning next week
[2018-02-05] MEDS: Lisinopril 10 MG Tablet PO SCH (14:31)
[2018-02-05] MEDS: Famotidine 20 MG Tablet PO SCH (20:57)
[2018-02-06] MEDS: Heparin - SQ 10,000 UNITS/ML Vial SQ SCH ×3 (05:47→21:24)
[2018-02-06] MEDS: Senna/Docusate Sodium 8.6/50 MG Tablet PO SCH ×2 (09:07→20:26)
[2018-02-06] MEDS: Lisinopril 10 MG Tablet PO SCH (09:07)
--- NOTE | 2018-02-06 09:52 | P.PN ---
Subjective Interval history: Follow-up Acute thrombosis of left internal carotid artery superimposed on chronic atherosclerosis February 03, 2018-patient seen and examined, no acute event overnight, afebrile. by the bedside and she is wandering if patient can be transferred to SNf back in [place] February 04, 2018-patient seen and examined, no acute event overnight and currently stable. Afebrile. Case discussed with neurology at bedside with patient's . February 05, 2018-patient seen and examined, with severe receptive and expressive aphasia. BP labile. Case discussed with patient's at bedside. February 06, 2018-patient seen and examined, resting in no acute event overnight. by the bedside. Afebrile. Physical Exam Vital signs: Vital Signs 02/05/18 12:00 02/05/18 16:00 02/05/18 19:00 Temperature 97.6 F 98 F Pulse Rate 55 L 55 L 60 Respiratory Rate 19 18 Blood Pressure 151/88 H 146/86 H Pulse Oximetry 96 94 L 02/05/18 19:47 02/05/18 20:00 02/06/18 00:00 Temperature 98.2 F 97.5 F L Pulse Rate 58 L 53 L Respiratory Rate 16 16 Blood Pressure 146/71 H 158/86 H Pulse Oximetry 95 95 97 02/06/18 03:55 02/06/18 04:00 02/06/18 04:12 Temperature 97.7 F Pulse Rate 52 L 49 L Respiratory Rate 18 18 Blood Pressure 168/91 H Pulse Oximetry 96 02/06/18 08:00 02/06/18 08:30 Temperature 97.7 F Pulse Rate 56 L 54 L Respiratory Rate 16 Blood Pressure 125/65 Pulse Oximetry 95 Intake & Output 02/05/18 02/06/18 02/06/18 18:59 06:59 18:59 Weight 76.9 kg Other: # Voids 4 # Incontinent Voids 1 Date of Last Bowel Movement 02/05/18 02/05/18 Narrative: GENERAL: NAD SKIN: Warm and dry. HEAD: Normocephalic. EYES: No scleral icterus. No injection or drainage. NECK: Supple, trachea midline. No JVD or lymphadenopathy. CARDIOVASCULAR: Regular rate and rhythm without murmurs, gallops, or rubs. RESPIRATORY: Breath sounds equal bilaterally. No accessory muscle use. GASTROINTESTINAL: Abdomen soft, non-tender, nondistended. MUSCULOSKELETAL: No cyanosis, or edema. BACK: Nontender without obvious deformity. No CVA tenderness. Neuro: right sided hemiparesis - Urinary Catheter Management Indwelling Urethral Catheter Cath placed during this visit: yes, but has since been removed by the nurse Reason for continuing: Decision to DC catheter Insertion date: 01/30/18 Insertion time: 02:50 Removal date: 02/01/18 Removal time: 16:30 Condom Cath placed during this visit: yes Reason for continuing: Not indwelling catheter Insertion date: 02/01/18 Insertion time: 16:45 Results - Labs CBC & Chem 7: 02/05/18 04:12 02/05/18 04:12 Assessment and Plan - Assessment (1) Acute ischemic stroke Code(s): I63.9 - Cerebral infarction, unspecified Status: Acute (2) Acute ischemic left middle cerebral artery (MCA) stroke Code(s): I63.512 - Cerebral infarction due to unspecified occlusion or stenosis of left middle cerebral artery Status: Acute (3) Left carotid stenosis Code(s): I65.22 - Occlusion and stenosis of left carotid artery Status: Acute (4) Hypertension Code(s): I10 - Essential (primary) hypertension Status: Acute (5) Tobacco use Code(s): Z72.0 - Tobacco use Status: Acute - Plan 57-year-old man with Acute MCA CVA Acute thrombosis of left internal carotid artery superimposed on chronic atherosclerosis * S/P TPA administration * S/P IR stent placement with thrombus retrieval * Appreciate input from Neurology * PT and OT, speech therapy Cerebral edema * Monitor in the ICU for possible intubation or worsening mental status * Patient noted to have 5 mm midline shift on follow up CT scan this morning, remains at very high risk for malignant MCA syndrome. * Continue 2% peripheral hypertonic saline, salt tabs. * MRI/MRA showed large left cerebral infarct, no abnormalities of COW Hypertension * Off Cardene drip, BP labile ; currently on lisinopril 10 mg daily * Vasotec, labetalol as needed Dyslipidemia * Pravastatin DVT GI prophylaxis * SCDs, SC heparin * On Pepcid PO Q day Positive toxicology screen * Cocaine Chronic daily alcohol abuse * MVI/ thiamine * Try to avoid benzodiazepines except for seizures so as not to cloud neuro exam Discharge planning next week
[2018-02-06] MEDS: Famotidine 20 MG Tablet PO SCH (20:26)
[2018-02-07] MEDS: Heparin - SQ 10,000 UNITS/ML Vial SQ SCH ×3 (06:03→21:46)
--- NOTE | 2018-02-07 09:39 | P.PN ---
Subjective Interval history: Follow-up Acute thrombosis of left internal carotid artery superimposed on chronic atherosclerosis February 03, 2018-patient seen and examined, no acute event overnight, afebrile. by the bedside and she is wandering if patient can be transferred to SNf back in [place] February 04, 2018-patient seen and examined, no acute event overnight and currently stable. Afebrile. Case discussed with neurology at bedside with patient's . February 05, 2018-patient seen and examined, with severe receptive and expressive aphasia. BP labile. Case discussed with patient's at bedside. February 06, 2018-patient seen and examined, resting in no acute event overnight. by the bedside. Afebrile. February 07, 2018-patient seen and examined, per patient's , he did not receive any PT over this weekend. Patient with expressive and receptive aphasia. Physical Exam Vital signs: Vital Signs 02/06/18 12:00 02/06/18 16:00 02/06/18 20:00 Temperature 98.5 F 98.0 F 99.0 F Pulse Rate 62 56 L 62 Respiratory Rate 16 14 18 Blood Pressure 120/64 109/59 L 107/61 Pulse Oximetry 95 90 L 95 02/06/18 20:45 02/06/18 23:20 02/07/18 00:00 Temperature 97.7 F Pulse Rate 53 L Respiratory Rate 18 18 Blood Pressure 100/62 Pulse Oximetry 95 94 L 02/07/18 04:00 02/07/18 08:00 Temperature 97.3 F L Pulse Rate 52 L 53 L Respiratory Rate 18 18 Blood Pressure 112/58 L 103/63 Pulse Oximetry 95 94 L Intake & Output 02/06/18 02/07/18 02/07/18 18:59 06:59 18:59 Intake Total 240 / 240 Balance 240 / 240 Weight 76.9 kg Intake: Oral 240 / 240 Other: # Voids 4 # Incontinent Voids 2 Date of Last Bowel Movement 02/06/18 # Bowel Movements 2 Narrative: GENERAL: NAD with receptive and expressive aphasia SKIN: Warm and dry. HEAD: Normocephalic. EYES: No scleral icterus. No injection or drainage. NECK: Supple, trachea midline. No JVD or lymphadenopathy. CARDIOVASCULAR: Regular rate and rhythm without murmurs, gallops, or rubs. RESPIRATORY: Breath sounds equal bilaterally. No accessory muscle use. GASTROINTESTINAL: Abdomen soft, non-tender, nondistended. MUSCULOSKELETAL: No cyanosis, or edema. BACK: Nontender without obvious deformity. No CVA tenderness. Neuro: right sided hemiparesis - Urinary Catheter Management Indwelling Urethral Catheter Cath placed during this visit: yes, but has since been removed by the nurse Reason for continuing: Decision to DC catheter Insertion date: 01/30/18 Insertion time: 02:50 Removal date: 02/01/18 Removal time: 16:30 Condom Cath placed during this visit: yes Reason for continuing: Not indwelling catheter Insertion date: 02/01/18 Insertion time: 16:45 Results - Labs CBC & Chem 7: 02/05/18 04:12 02/05/18 04:12 - Procedures none Assessment and Plan - Assessment (1) Acute ischemic stroke Code(s): I63.9 - Status: Acute (2) Acute ischemic left middle cerebral artery (MCA) stroke Code(s): I63.512 - Status: Acute (3) Left carotid stenosis Code(s): I65.22 - Status: Acute (4) Hypertension Code(s): I10 - Status: Acute (5) Tobacco use Code(s): Z72.0 - Status: Acute - Plan 57-year-old man with Acute MCA CVA Acute thrombosis of left internal carotid artery superimposed on chronic atherosclerosis * S/P TPA administration * S/P IR stent placement with thrombus retrieval * Appreciate input from Neurology * PT and OT, speech therapy Cerebral edema * Monitor in the ICU for possible intubation or worsening mental status * Patient noted to have 5 mm midline shift on follow up CT scan this morning, remains at very high risk for malignant MCA syndrome. * Continue 2% peripheral hypertonic saline, salt tabs. * MRI/MRA showed large left cerebral infarct, no abnormalities of COW Hypertension * Off Cardene drip, BP labile ; currently on lisinopril 10 mg daily * Vasotec, labetalol as needed Dyslipidemia * Pravastatin DVT GI prophylaxis * SCDs, SC heparin * On Pepcid PO Q day Positive toxicology screen * Cocaine Chronic daily alcohol abuse * MVI/ thiamine * Try to avoid benzodiazepines except for seizures so as not to cloud neuro exam Discharge planning this week to [facility]
[2018-02-07] MEDS: Senna/Docusate Sodium 8.6/50 MG Tablet PO SCH ×2 (09:53→20:21)
[2018-02-07] MEDS: Lisinopril 10 MG Tablet PO SCH (09:54)
[2018-02-07] MEDS: Famotidine 20 MG Tablet PO SCH (20:21)
[2018-02-08] MEDS: Heparin - SQ 10,000 UNITS/ML Vial SQ SCH ×3 (05:32→21:52)
[2018-02-08] MEDS: Lisinopril 10 MG Tablet PO SCH (09:44)
[2018-02-08] MEDS: Senna/Docusate Sodium 8.6/50 MG Tablet PO SCH ×2 (09:44→21:52)
--- NOTE | 2018-02-08 09:54 | P.PN ---
Subjective Interval history: Follow-up Acute thrombosis of left internal carotid artery superimposed on chronic atherosclerosis February 03, 2018-patient seen and examined, no acute event overnight, afebrile. by the bedside and she is wandering if patient can be transferred to SNf back in [place] February 04, 2018-patient seen and examined, no acute event overnight and currently stable. Afebrile. Case discussed with neurology at bedside with patient's . February 05, 2018-patient seen and examined, with severe receptive and expressive aphasia. BP labile. Case discussed with patient's at bedside. February 06, 2018-patient seen and examined, resting in no acute event overnight. by the bedside. Afebrile. February 07, 2018-patient seen and examined, per patient's , he did not receive any PT over this weekend. Patient with expressive and receptive aphasia. February 08, 2018-patient seen and examined, remains stable and no acute event overnight. Case discussed with transplant case manager regarding discharge disposition today. Physical Exam Vital signs: Vital Signs 02/07/18 12:00 02/07/18 16:00 02/07/18 16:51 Temperature 97.8 F 98.1 F Pulse Rate 68 53 L 54 L Respiratory Rate 18 16 Blood Pressure 102/59 L 131/78 Pulse Oximetry 96 94 L 02/07/18 19:52 02/07/18 20:00 02/07/18 20:20 Temperature 97.7 F Pulse Rate 60 Respiratory Rate 18 Blood Pressure 119/60 Pulse Oximetry 95 99 98 02/08/18 00:00 02/08/18 00:23 02/08/18 04:00 Temperature 97.5 F L 97.7 F Pulse Rate 54 L 59 L Respiratory Rate 16 18 16 Blood Pressure 118/62 121/68 Pulse Oximetry 94 L 95 02/08/18 04:28 02/08/18 08:00 Temperature 97.2 F L Pulse Rate 55 L 53 L Respiratory Rate 14 Blood Pressure 138/83 Pulse Oximetry 97 Intake & Output 02/07/18 02/08/18 02/08/18 18:59 06:59 18:59 Other: # Incontinent Voids 3 Date of Last Bowel Movement 02/06/18 02/05/18 02/05/18 Narrative: GENERAL: NAD with receptive and expressive aphasia SKIN: Warm and dry. HEAD: Normocephalic. EYES: No scleral icterus. No injection or drainage. NECK: Supple, trachea midline. No JVD or lymphadenopathy. CARDIOVASCULAR: Regular rate and rhythm without murmurs, gallops, or rubs. RESPIRATORY: Breath sounds equal bilaterally. No accessory muscle use. GASTROINTESTINAL: Abdomen soft, non-tender, nondistended. MUSCULOSKELETAL: No cyanosis, or edema. BACK: Nontender without obvious deformity. No CVA tenderness. Neuro: right sided hemiparesis - Urinary Catheter Management Indwelling Urethral Catheter Cath placed during this visit: yes, but has since been removed by the nurse Reason for continuing: Decision to DC catheter Insertion date: 01/30/18 Insertion time: 02:50 Removal date: 02/01/18 Removal time: 16:30 Condom Cath placed during this visit: yes Reason for continuing: Not indwelling catheter Insertion date: 02/01/18 Insertion time: 16:45 Results - Labs CBC & Chem 7: 02/05/18 04:12 02/05/18 04:12 - Procedures none Assessment and Plan - Assessment (1) Acute ischemic stroke Code(s): I63.9 - Cerebral infarction, unspecified Status: Acute (2) Acute ischemic left middle cerebral artery (MCA) stroke Code(s): I63.512 - Cerebral infarction due to unspecified occlusion or stenosis of left middle cerebral artery Status: Acute (3) Left carotid stenosis Code(s): I65.22 - Occlusion and stenosis of left carotid artery Status: Acute (4) Hypertension Code(s): I10 - Essential (primary) hypertension Status: Acute (5) Tobacco use Code(s): Z72.0 - Tobacco use Status: Acute - Plan 57-year-old man with Acute MCA CVA Acute thrombosis of left internal carotid artery superimposed on chronic atherosclerosis * S/P TPA administration * S/P IR stent placement with thrombus retrieval * Appreciate input from Neurology * PT and OT, speech therapy Cerebral edema * Monitor in the ICU for possible intubation or worsening mental status * Patient noted to have 5 mm midline shift on follow up CT scan this morning, remains at very high risk for malignant MCA syndrome. * Continue 2% peripheral hypertonic saline, salt tabs. * MRI/MRA showed large left cerebral infarct, no abnormalities of COW Hypertension * Off Cardene drip, BP labile ; currently on lisinopril 10 mg daily * Vasotec, labetalol as needed Dyslipidemia * Pravastatin DVT GI prophylaxis * SCDs, SC heparin * On Pepcid PO Q day Positive toxicology screen * Cocaine Chronic daily alcohol abuse * MVI/ thiamine * Try to avoid benzodiazepines except for seizures so as not to cloud neuro exam Likely discharge to SNF in [facility] February 08, 2018
--- NOTE | 2018-02-08 14:47 | P.DS ---
Date of admission: 01/30/18 03:08 Primary care physician: UNKNOWN Brief History from admission: 57-year-old unfortunate gentleman presents [facility] emergency department as a stroke alert. His reports that they went to bed shortly after midnight. Approximately 10-15 minutes before calling EMS, she states that he seemed to be normal. She states that he had taken all the covers which resulted in a brief conversation between the 2 of them. He seemed okay at that time. Then, approximately 10 minutes later, she noticed that he seemed very restless. She noticed that he had altered mental status and had been incontinent of urine. He was trying to get off the bed and she called 911. EVAC reports right-sided paralysis, aphasia and urinary incontinence. On arrival to [facility] emergency department the patient was aphasic. He is a little bit agitated. He has some right-sided facial weakness as well as weakness of the right upper and lower extremities. He was taken emergently for CT of the head which was negative for bleed. TPA infusion was then initiated. The case was discussed with Dr. Acuna. The CTA of the head and neck showed thrombosed left internal carotid artery and extending into the left middle cerebral artery. The patient was emergently taken to IR suite for possible intervention. DS: Diagnosis - Discharge Diagnosis (1) Acute ischemic stroke Status: Acute (2) Acute ischemic left middle cerebral artery (MCA) stroke Status: Acute (3) Left carotid stenosis Status: Acute (4) Hypertension Status: Acute (5) Tobacco use Status: Acute DS: Summary Hospital Course: While in the hospital, the patient was treated for: Acute MCA CVA Acute thrombosis of left internal carotid artery superimposed on chronic atherosclerosis * S/P TPA administration * S/P IR stent placement with thrombus retrieval * Appreciate input from Neurology * PT and OT, speech therapy Cerebral edema * Patient noted to have 5 mm midline shift on follow up CT scan this morning, remains at very high risk for malignant MCA syndrome. * He was treated with 2% peripheral hypertonic saline, salt tabs. * MRI/MRA showed large left cerebral infarct, no abnormalities of COW Hypertension * Off Cardene drip, He was started on lisinopril 10 mg daily * Vasotec, labetalol as needed Dyslipidemia * Pravastatin DVT GI prophylaxis * SCDs, SC heparin * On Pepcid PO Q day Positive toxicology screen * Cocaine; counselled against Chronic daily alcohol abuse * MVI/ thiamine * Try to avoid benzodiazepines except for seizures so as not to cloud neuro exam - Time Spent with Patient Total time spent providing and/or coordinating discharge services: Greater than 30 minutes - Quality: Stroke Last date observed well: 01/30/18 Last time observed well: 02:00 Symptom Onset Unknown: No - Quality: VTE Deep Vein Thrombosis/Pulmonary Embolism Present on Admission: No Exam Vital signs: Vital Signs 02/07/18 16:00 02/07/18 16:51 02/07/18 19:52 Temperature 98.1 F Pulse Rate 53 L 54 L Respiratory Rate 16 Blood Pressure 131/78 Pulse Oximetry 94 L 95 02/07/18 20:00 02/07/18 20:20 02/08/18 00:00 Temperature 97.7 F 97.5 F L Pulse Rate 60 54 L Respiratory Rate 18 16 Blood Pressure 119/60 118/62 Pulse Oximetry 99 98 94 L 02/08/18 00:23 02/08/18 04:00 02/08/18 04:28 Temperature 97.7 F Pulse Rate 59 L 55 L Respiratory Rate 18 16 Blood Pressure 121/68 Pulse Oximetry 95 02/08/18 08:00 02/08/18 10:17 02/08/18 12:00 Temperature 97.2 F L 97.9 F Pulse Rate 53 L 61 Respiratory Rate 14 16 Blood Pressure 138/83 117/66 Pulse Oximetry 97 97 97 Intake & Output 02/07/18 02/08/18 02/08/18 18:59 06:59 18:59 Other: # Incontinent Voids 3 Date of Last Bowel Movement 02/06/18 02/05/18 02/05/18 Narrative: GENERAL: NAD with receptive and expressive aphasia SKIN: Warm and dry. HEAD: Normocephalic. EYES: No scleral icterus. No injection or drainage. NECK: Supple, trachea midline. No JVD or lymphadenopathy. CARDIOVASCULAR: Regular rate and rhythm without murmurs, gallops, or rubs. RESPIRATORY: Breath sounds equal bilaterally. No accessory muscle use. GASTROINTESTINAL: Abdomen soft, non-tender, nondistended. MUSCULOSKELETAL: No cyanosis, or edema. BACK: Nontender without obvious deformity. No CVA tenderness. Neuro: right sided hemiparesis Results Procedures completed during hospitalization: none - Impressions ITS Impressions Cerebral Arteriogram 01/30/18 00:00 CONCLUSION: 1. Extensive thrombosis of the left internal carotid artery and left MCA vessels. 2. Patient had an excellent response to IV TPA with almost complete resolution of the acute thrombus in the left internal carotid. This unmasked a high-grade nonostial stenosis of the internal which was probably the source of emboli to the left MCA territory. 3. The high-grade stenosis was successfully stented and balloon angioplasty with a tapered 8-6, 40 cm Protege stent. 4. Complete clearance of the embolic material from the left M1 and proximal M2 segments with 2 passes of the 068-max penumbra aspiration catheter. Head MRI 01/30/18 00:00 CONCLUSION: 1. Large area of acute infarction involving the left cerebral hemisphere. Chest X-Ray 01/30/18 02:36 CONCLUSION: No evidence of acute cardiopulmonary disease. Head CTA 01/30/18 02:52 CONCLUSION: Thrombosed left internal carotid artery and extending into the left middle cerebral artery. Neck CTA 01/30/18 03:19 CONCLUSION: 1. Acute appearing thrombosis of the left internal carotid artery beginning about 1 cm above the bifurcation and extending intracranially into the left middle cerebral artery. 2. Atherosclerosis of the bilateral carotid bulbs and proximal internal carotid arteries with low-grade and very short segment narrowing. 3. No acute vertebrobasilar abnormality. Head MRA 01/30/18 08:32 CONCLUSION: 1. Negative MRA [place] ([place]) non contrast. Head CT 02/01/18 06:00 CONCLUSION: Involving left MCA distribution infarcts again seen. No evidence of acute hemorrhage. 5 mm [id number] midline shift. . Discharge Plan - Discharge Disposition Patient Disposition: 03 Discharge to SNF - Discharge Condition Condition: Fair - Discharge Order Discharge Orders: Discharge Order (Routine); Ordered 02/08/18 Ordered By: Johnny Kingston - Physicians Team Primary Care Provider: UNKNOWN, Attending Provider: Johnny Kingston Other Providers: Shimon Acuna MD ; Gumaro Silveira MD ; Jem Neville MD
[2018-02-08] MEDS: Famotidine 20 MG Tablet PO SCH (21:52)
[2018-02-09] MEDS: Heparin - SQ 10,000 UNITS/ML Vial SQ SCH (05:38)
[2018-02-09 08:02] VITALS: BP 126/81; RESP 12; TEMP 97.8; O2SAT 97
[2018-02-09] MEDS: Lisinopril 10 MG Tablet PO SCH (09:04)
--- NOTE | 2018-02-09 09:04 | P.PN ---
Subjective Interval history: Follow-up Acute thrombosis of left internal carotid artery superimposed on chronic atherosclerosis February 03, 2018-patient seen and examined, no acute event overnight, afebrile. by the bedside and she is wandering if patient can be transferred to SNf back in [place] February 04, 2018-patient seen and examined, no acute event overnight and currently stable. Afebrile. Case discussed with neurology at bedside with patient's . February 05, 2018-patient seen and examined, with severe receptive and expressive aphasia. BP labile. Case discussed with patient's at bedside. February 06, 2018-patient seen and examined, resting in no acute event overnight. by the bedside. Afebrile. February 07, 2018-patient seen and examined, per patient's , he did not receive any PT over this weekend. Patient with expressive and receptive aphasia. February 08, 2018-patient seen and examined, remains stable and no acute event overnight. Case discussed with case packer and sealer regarding discharge disposition today. February 09, 2018-patient seen and examined, change and remains stable. Patient with expressive and receptive aphasia. Awaiting for insurance approval prior to discharge today possible for SNF Physical Exam Vital signs: Vital Signs 02/08/18 10:17 02/08/18 12:00 02/08/18 19:51 Temperature 97.9 F 97.5 F L Pulse Rate 61 61 Respiratory Rate 16 17 Blood Pressure 117/66 111/62 Pulse Oximetry 97 97 97 02/09/18 00:00 02/09/18 04:00 02/09/18 08:00 Temperature 98.2 F 98.0 F 97.8 F Pulse Rate 57 L 60 55 L Respiratory Rate 18 18 12 Blood Pressure 119/77 125/75 126/81 Pulse Oximetry 97 99 97 Intake & Output 02/08/18 02/09/18 02/09/18 18:59 06:59 18:59 Weight 76.8 kg Other: # Voids 2 Date of Last Bowel Movement 02/05/18 02/06/18 Narrative: GENERAL: NAD with receptive and expressive aphasia SKIN: Warm and dry. HEAD: Normocephalic. EYES: No scleral icterus. No injection or drainage. NECK: Supple, trachea midline. No JVD or lymphadenopathy. CARDIOVASCULAR: Regular rate and rhythm without murmurs, gallops, or rubs. RESPIRATORY: Breath sounds equal bilaterally. No accessory muscle use. GASTROINTESTINAL: Abdomen soft, non-tender, nondistended. MUSCULOSKELETAL: No cyanosis, or edema. BACK: Nontender without obvious deformity. No CVA tenderness. Neuro: right sided hemiparesis - Urinary Catheter Management Indwelling Urethral Catheter Cath placed during this visit: yes, but has since been removed by the nurse Reason for continuing: Decision to DC catheter Insertion date: 01/30/18 Insertion time: 02:50 Removal date: 02/01/18 Removal time: 16:30 Condom Cath placed during this visit: yes Reason for continuing: Not indwelling catheter Insertion date: 02/01/18 Insertion time: 16:45 Results - Labs CBC & Chem 7: 02/05/18 04:12 02/05/18 04:12 - Procedures none Assessment and Plan - Assessment (1) Acute ischemic stroke Code(s): I63.9 - Cerebral infarction, unspecified Status: Acute (2) Acute ischemic left middle cerebral artery (MCA) stroke Code(s): I63.512 - Cerebral infarction due to unspecified occlusion or stenosis of left middle cerebral artery Status: Acute (3) Left carotid stenosis Code(s): I65.22 - Occlusion and stenosis of left carotid artery Status: Acute (4) Hypertension Code(s): I10 - Essential (primary) hypertension Status: Acute (5) Tobacco use Code(s): Z72.0 - Tobacco use Status: Acute - Plan 57-year-old man with Acute MCA CVA Acute thrombosis of left internal carotid artery superimposed on chronic atherosclerosis * S/P TPA administration * S/P IR stent placement with thrombus retrieval * Appreciate input from Neurology * PT and OT, speech therapy Cerebral edema-Improved * Patient noted to have 5 mm midline shift on follow up CT scan this morning, remains at very high risk for malignant MCA syndrome. * s/p 2% peripheral hypertonic saline, salt tabs. * MRI/MRA showed large left cerebral infarct, no abnormalities of COW Hypertension * Off Cardene drip, BP labile ; currently on lisinopril 10 mg daily * Vasotec, labetalol as needed Dyslipidemia * Pravastatin DVT GI prophylaxis * SCDs, SC heparin * On Pepcid PO Q day Positive toxicology screen * Cocaine Chronic daily alcohol abuse * MVI/ thiamine * Try to avoid benzodiazepines except for seizures so as not to cloud neuro exam Likely discharge to [facility] in [facility] February 09, 2018
[2018-02-09] MEDS: Senna/Docusate Sodium 8.6/50 MG Tablet PO SCH (09:05)
[2018-02-09 12:29] VITALS: PULSE 56
== END 2018-02-09 12:19 ==
LOC: PHED 02:35 → PHEDA 03:08 → N03 04:50 → N05 02-05 23:51
PROVIDERS: ADMIT Hospitalist; ATTEND Hospitalist